=== PATIENT | male | born 1950 | race Caucasian/White ===

== ENCOUNTER 2016-09-05 10:37 | Outpatient (CLI) | payer MEDICARE, OTHER | END 2016-09-05 10:38 | disposition home or self-care (01) | DX: I48.0 Paroxysmal atrial fibrillation (principal) ==

== ENCOUNTER 2016-09-20 09:19 | Outpatient (CLI) | payer MEDICARE, OTHER | END 2016-09-20 09:20 | disposition home or self-care (01) | DX: I48.0 Paroxysmal atrial fibrillation (principal) ==

== ENCOUNTER 2016-09-23 10:28 | Outpatient (CLI) | payer MEDICARE, OTHER | END 2016-09-23 10:29 | disposition home or self-care (01) | DX: I48.0 Paroxysmal atrial fibrillation (principal) ==

== ENCOUNTER 2016-10-31 11:20 | Outpatient (CLI) | payer MEDICARE, OTHER | END 2016-10-31 11:21 | disposition home or self-care (01) | DX: I48.0 Paroxysmal atrial fibrillation (principal) ==

== ENCOUNTER 2016-12-27 15:01 | Outpatient (CLI) | payer MEDICARE, OTHER | END 2016-12-27 15:02 | disposition home or self-care (01) | LOC: LAB.F 15:01 | PROVIDERS: ATTEND Family Medicine | DX: I48.0 Paroxysmal atrial fibrillation (principal) | CPT/HCPCS: 85610 ==

== ENCOUNTER 2017-02-20 14:42 | Outpatient (CLI) | payer MEDICARE, OTHER | END 2017-02-20 14:43 | disposition home or self-care (01) | LOC: LAB.F 14:42 | PROVIDERS: ATTEND Family Medicine | DX: I48.0 Paroxysmal atrial fibrillation (principal) | CPT/HCPCS: 85610 ==

== ENCOUNTER 2017-03-03 07:42 | Outpatient (CLI) | payer MEDICARE, OTHER | END 2017-03-03 07:43 | disposition home or self-care (01) | LOC: LAB.F 07:42 | PROVIDERS: ATTEND Family Medicine | DX: I48.0 Paroxysmal atrial fibrillation (principal) | CPT/HCPCS: 85610 ==

== ENCOUNTER 2017-03-16 13:01 | Outpatient (CLI) | payer MEDICARE, OTHER | END 2017-03-16 13:02 | disposition home or self-care (01) | LOC: LAB.F 13:01 | PROVIDERS: ATTEND Family Medicine | DX: I48.0 Paroxysmal atrial fibrillation (principal) | CPT/HCPCS: 85610 ==

== ENCOUNTER 2017-03-23 09:24 | Outpatient (CLI) | payer MEDICARE, OTHER | END 2017-03-23 09:25 | disposition home or self-care (01) | LOC: LAB.F 09:24 | PROVIDERS: ATTEND Family Medicine | DX: I48.0 Paroxysmal atrial fibrillation (principal) | CPT/HCPCS: 85610 ==

== ENCOUNTER 2017-04-05 14:01 | Outpatient (CLI) | payer MEDICARE, OTHER | END 2017-04-05 14:02 | disposition home or self-care (01) | LOC: LAB.F 14:01 | PROVIDERS: ATTEND Family Medicine | DX: I48.0 Paroxysmal atrial fibrillation (principal) | CPT/HCPCS: 85610 ==

== ENCOUNTER 2017-05-08 13:30 | Outpatient (CLI) | payer MEDICARE, OTHER | END 2017-05-08 13:31 | disposition home or self-care (01) | LOC: LAB.F 13:30 | PROVIDERS: ATTEND Family Medicine | DX: I48.0 Paroxysmal atrial fibrillation (principal) | CPT/HCPCS: 85610 ==

== ENCOUNTER 2017-07-11 12:35 | Outpatient (CLI) | payer MEDICARE, OTHER | END 2017-07-11 12:36 | disposition home or self-care (01) | LOC: LAB.F 12:35 | PROVIDERS: ATTEND Family Medicine | DX: I48.0 Paroxysmal atrial fibrillation (principal) | CPT/HCPCS: 85610 ==

== ENCOUNTER 2017-08-10 12:08 | Outpatient (CLI) | payer MEDICARE, OTHER | END 2017-08-10 12:09 | disposition home or self-care (01) | LOC: RT 12:08 | PROVIDERS: ATTEND Internal Medicine Cardiovascular Disease | DX: G47.33 Obstructive sleep apnea (adult) (pediatric) (principal); I10 Essential (primary) hypertension | CPT/HCPCS: 93005 ==

== ENCOUNTER 2017-08-11 10:21 | Outpatient (CLI) | payer MEDICARE, OTHER | END 2017-08-11 10:22 | disposition home or self-care (01) | LOC: LAB.F 10:21 | PROVIDERS: ATTEND Family Medicine | DX: I48.0 Paroxysmal atrial fibrillation (principal) | CPT/HCPCS: 85610 ==

== ENCOUNTER 2017-09-13 10:51 | Outpatient (CLI) | payer MEDICARE, OTHER | END 2017-09-13 10:52 | disposition home or self-care (01) | LOC: LAB.F 10:51 | PROVIDERS: ATTEND Family Medicine | DX: I48.0 Paroxysmal atrial fibrillation (principal) | CPT/HCPCS: 85610 ==

== ENCOUNTER 2017-09-29 14:30 | Outpatient (CLI) | payer MEDICARE, OTHER | END 2017-09-29 14:31 | disposition home or self-care (01) | LOC: LAB.F 14:30 | PROVIDERS: ATTEND Family Medicine | DX: I48.0 Paroxysmal atrial fibrillation (principal) | CPT/HCPCS: 85610 ==

== ENCOUNTER 2017-10-30 14:06 | Outpatient (CLI) | payer MEDICARE, OTHER | END 2017-10-30 14:07 | disposition home or self-care (01) | LOC: LAB.F 14:06 | PROVIDERS: ATTEND Family Medicine | DX: I48.0 Paroxysmal atrial fibrillation (principal) | CPT/HCPCS: 85610 ==

== ENCOUNTER 2017-11-08 10:12 | Outpatient (CLI) | payer MEDICARE, OTHER | END 2017-11-08 10:13 | disposition home or self-care (01) | LOC: LAB.F 10:12 | PROVIDERS: ATTEND Family Medicine | DX: I48.0 Paroxysmal atrial fibrillation (principal) | CPT/HCPCS: 85610 ==

== ENCOUNTER 2017-12-07 13:43 | Outpatient (CLI) | payer MEDICARE, OTHER | END 2017-12-07 13:44 | disposition home or self-care (01) | LOC: LAB.F 13:43 | PROVIDERS: ATTEND Family Medicine | DX: I48.0 Paroxysmal atrial fibrillation (principal) | CPT/HCPCS: 85610 ==

== ENCOUNTER 2017-12-18 09:05 | Outpatient (CLI) | payer MEDICARE, OTHER | END 2017-12-18 09:06 | disposition home or self-care (01) | LOC: LAB.F 09:05 | PROVIDERS: ATTEND Family Medicine | DX: I48.0 Paroxysmal atrial fibrillation (principal) | CPT/HCPCS: 85610 ==

== ENCOUNTER 2018-01-12 13:34 | Outpatient (CLI) | payer MEDICARE, OTHER | END 2018-01-12 13:35 | disposition home or self-care (01) | LOC: LAB.F 13:34 | PROVIDERS: ATTEND Family Medicine | DX: I48.0 Paroxysmal atrial fibrillation (principal) | CPT/HCPCS: 85610 ==

== ENCOUNTER 2018-01-18 07:09 | Outpatient (CLI) | payer MEDICARE, OTHER ==
[2018-01-18 11:18] LABS: CHOL/HDL RATIO 4.4 (<5.0); CHOLESTEROL 115 mg/dL; HDL CHOLESTEROL 26 mg/dL; LDL CHOLESTEROL,CALCULATED 64 mg/dL; LDL/HDL RATIO 2.5 (<3.6); VLDL CHOLESTEROL 25 mg/dL
[2018-01-18 11:21] LABS: PSA FREE 0.08 ng/mL (0.16-2.81)
[2018-01-18 11:22] LABS: PSA TOTAL 0.57 ng/mL (0.000-2.000)
[2018-01-18 11:31] LABS: HB2 TOTAL 11.1 g/dL; HEMOGLOBIN A1C 0.42 g/dL; HEMOGLOBIN A1C % 5.6 % (4.6-6.2)
== END 2018-01-18 07:10 | disposition home or self-care (01) ==
LOC: LAB.F 07:09
PROVIDERS: ATTEND Nurse Practitioner Family
DX: I48.0 Paroxysmal atrial fibrillation (principal); R73.01 Impaired fasting glucose; E78.5 Hyperlipidemia, unspecified; I10 Essential (primary) hypertension; R97.20 Elevated prostate specific antigen [PSA]
CPT/HCPCS: 36415; 80061; 83036; 83721; 84153; 84154; 84443

== ENCOUNTER 2018-01-26 15:02 | Outpatient (CLI) | payer MEDICARE, OTHER | END 2018-01-26 15:03 | disposition home or self-care (01) | LOC: LAB.F 15:02 | PROVIDERS: ATTEND Family Medicine | DX: I48.0 Paroxysmal atrial fibrillation (principal) | CPT/HCPCS: 85610 ==

== ENCOUNTER 2018-02-23 15:03 | Outpatient (CLI) | payer MEDICARE, OTHER | END 2018-02-23 15:04 | disposition home or self-care (01) | LOC: LAB.F 15:03 | PROVIDERS: ATTEND Family Medicine | DX: I48.0 Paroxysmal atrial fibrillation (principal) | CPT/HCPCS: 85610 ==

== ENCOUNTER 2018-03-07 14:31 | Outpatient (CLI) | payer MEDICARE, OTHER | END 2018-03-07 14:32 | disposition home or self-care (01) | LOC: LAB.F 14:31 | PROVIDERS: ATTEND Family Medicine | DX: I48.0 Paroxysmal atrial fibrillation (principal) | CPT/HCPCS: 85610 ==

== ENCOUNTER 2018-03-20 14:52 | Outpatient (CLI) | payer MEDICARE, OTHER | END 2018-03-20 14:53 | disposition home or self-care (01) | LOC: LAB.F 14:52 | PROVIDERS: ATTEND Family Medicine | DX: I48.0 Paroxysmal atrial fibrillation (principal) | CPT/HCPCS: 85610 ==

== ENCOUNTER 2018-04-26 08:47 | Outpatient (CLI) | payer MEDICARE, OTHER ==
[2018-04-26 10:36] LABS: BUN - BLOOD UREA NITROGEN 17 mg/dL (6-20); CALCIUM 8.7 mg/dL (8.5-10.3); CARBON DIOXIDE - CO2 26 mmol/L (21-32); CHLORIDE 106 mmol/L (101-111); CHOL/HDL RATIO 5.3 (<5.0); CHOLESTEROL 123 mg/dL; CREATININE 0.7 mg/dL (0.6-1.2); GFR - MDRD 112 (>89); GLUCOSE 94 mg/dL (70-100); HDL CHOLESTEROL 23 mg/dL; LDL CHOLESTEROL,CALCULATED 74 mg/dL; LDL/HDL RATIO 3.2 (<3.6); SODIUM 140 mmol/L (135-145); VLDL CHOLESTEROL 26 mg/dL
[2018-04-26 11:59] LABS: HEMOGLOBIN A1C 0.41 g/dL; HEMOGLOBIN A1C % 5.6 % (4.6-6.2)
== END 2018-04-26 08:48 | disposition home or self-care (01) ==
LOC: LAB.F 08:47
PROVIDERS: ATTEND Internal Medicine
DX: I48.0 Paroxysmal atrial fibrillation (principal); R73.01 Impaired fasting glucose; E78.5 Hyperlipidemia, unspecified
CPT/HCPCS: 36415; 80048; 80061; 83036; 83721; 85610

== ENCOUNTER → 2018-06-19 | Outpatient (CLI) | payer MEDICARE, OTHER ==
[2018-06-19 17:48] LABS: INR 2.1 (0.8-1.2)
== END ==
LOC: LAB.F 14:30
PROVIDERS: ATTEND Internal Medicine
DX: I48.0 Paroxysmal atrial fibrillation (principal)
CPT/HCPCS: 85610

== ENCOUNTER 2018-07-25 10:49 | Outpatient (CLI) | payer MEDICARE, OTHER | END 2018-07-25 10:50 | disposition home or self-care (01) | LOC: LAB.F 10:49 | PROVIDERS: ATTEND Internal Medicine | DX: I48.0 Paroxysmal atrial fibrillation (principal) | CPT/HCPCS: 85610 ==

== ENCOUNTER 2018-09-28 09:55 | Outpatient (CLI) | payer MEDICARE, OTHER | END 2018-09-28 09:56 | disposition home or self-care (01) | LOC: LAB.F 09:55 | PROVIDERS: ATTEND Internal Medicine | DX: I48.0 Paroxysmal atrial fibrillation (principal) | CPT/HCPCS: 85610 ==

== ENCOUNTER 2018-10-31 13:52 | Outpatient (CLI) | payer MEDICARE, OTHER | END 2018-10-31 13:53 | disposition home or self-care (01) | LOC: LAB.F 13:52 | PROVIDERS: ATTEND Internal Medicine | DX: I48.0 Paroxysmal atrial fibrillation (principal) | CPT/HCPCS: 85610 ==

== ENCOUNTER 2018-11-02 07:34 | Outpatient (CLI) | payer MEDICARE, OTHER ==
[2018-11-02 10:54] LABS: ALBUMIN 3.6 g/dL (3.2-5.5); ALBUMIN/GLOBULIN RATIO 1.5 (1.0-2.2); ALKALINE PHOSPHATASE 65 IU/L (42-121); ALT ALANINE AMINOTRANSFERASE 20 IU/L (10-60); AST ASPARTATE AMINOTRANSFERASE 22 IU/L (10-42); BILIRUBIN,TOTAL 0.6 mg/dL (0.2-1.0); BUN - BLOOD UREA NITROGEN 18 mg/dL (6-20); CALCIUM 8.6 mg/dL (8.5-10.3); CARBON DIOXIDE - CO2 25 mmol/L (21-32); CHLORIDE 108 mmol/L (101-111); CHOL/HDL RATIO 5.2 (<5.0); CHOLESTEROL 131 mg/dL; CREATININE 0.8 mg/dL (0.6-1.2); GFR - MDRD 96 (>89); GLUCOSE 95 mg/dL (70-100); HDL CHOLESTEROL 25 mg/dL; LDL CHOLESTEROL,CALCULATED 85 mg/dL; LDL/HDL RATIO 3.4 (<3.6); SODIUM 139 mmol/L (135-145); VLDL CHOLESTEROL 21 mg/dL
== END 2018-11-02 07:35 | disposition home or self-care (01) ==
LOC: LAB.F 07:34
PROVIDERS: ATTEND Internal Medicine Cardiovascular Disease
DX: I48.2 Chronic atrial fibrillation (principal); R73.01 Impaired fasting glucose; E78.5 Hyperlipidemia, unspecified; Z12.5 Encounter for screening for malignant neoplasm of prostate; I77.810 Thoracic aortic ectasia
CPT/HCPCS: 36415; 80053; 80061; G0103; 82565; 83721; 84153

== ENCOUNTER 2018-11-08 14:06 | Outpatient (CLI) | payer MEDICARE, OTHER | END 2018-11-08 14:07 | disposition home or self-care (01) | LOC: LAB.F 14:06 | PROVIDERS: ATTEND Internal Medicine | DX: I48.0 Paroxysmal atrial fibrillation (principal) | CPT/HCPCS: 85610 ==

== ENCOUNTER 2018-11-16 07:29 | Outpatient (CLI) | payer MEDICARE, OTHER | END 2018-11-16 07:30 | disposition home or self-care (01) | LOC: LAB.F 07:29 | PROVIDERS: ATTEND Internal Medicine | DX: I48.0 Paroxysmal atrial fibrillation (principal) | CPT/HCPCS: 85610 ==

== ENCOUNTER 2018-11-23 09:23 | Outpatient (CLI) | payer MEDICARE, OTHER | END 2018-11-23 09:24 | disposition home or self-care (01) | LOC: LAB.F 09:23 | PROVIDERS: ATTEND Internal Medicine | DX: I48.0 Paroxysmal atrial fibrillation (principal) | CPT/HCPCS: 85610 ==

== ENCOUNTER 2018-11-30 14:10 | Outpatient (CLI) | payer MEDICARE, OTHER | END 2018-11-30 14:11 | disposition home or self-care (01) | LOC: LAB.F 14:10 | PROVIDERS: ATTEND Internal Medicine | DX: I48.0 Paroxysmal atrial fibrillation (principal) | CPT/HCPCS: 85610 ==

== ENCOUNTER 2019-01-14 12:12 | Outpatient (CLI) | payer MEDICARE, OTHER | END 2019-01-14 12:13 | disposition home or self-care (01) | LOC: LAB.F 12:12 | PROVIDERS: ATTEND Internal Medicine | DX: I48.0 Paroxysmal atrial fibrillation (principal) | CPT/HCPCS: 85610 ==

== ENCOUNTER 2019-01-21 11:39 | Outpatient (CLI) | payer MEDICARE, OTHER | END 2019-01-21 11:40 | disposition home or self-care (01) | LOC: LAB.F 11:39 | PROVIDERS: ATTEND Internal Medicine | DX: I48.0 Paroxysmal atrial fibrillation (principal) | CPT/HCPCS: 85610 ==

== ENCOUNTER 2019-01-28 13:31 | Outpatient (CLI) | payer MEDICARE, OTHER | END 2019-01-28 13:32 | disposition home or self-care (01) | LOC: LAB.F 13:31 | PROVIDERS: ATTEND Internal Medicine | DX: I48.0 Paroxysmal atrial fibrillation (principal) | CPT/HCPCS: 85610 ==

== ENCOUNTER 2019-03-07 14:06 | Outpatient (CLI) | payer MEDICARE, OTHER | END 2019-03-07 14:07 | disposition home or self-care (01) | LOC: LAB.S 14:06 | PROVIDERS: ATTEND Internal Medicine | DX: I48.0 Paroxysmal atrial fibrillation (principal) | CPT/HCPCS: 85610 ==

== ENCOUNTER 2019-04-23 08:00 | Outpatient (CLI) | payer MEDICARE, OTHER | END 2019-04-23 23:59 | disposition home or self-care (01) | LOC: LAB.S 08:00 | PROVIDERS: ATTEND Internal Medicine | DX: I48.0 Paroxysmal atrial fibrillation (principal) | CPT/HCPCS: 85610 ==

== ENCOUNTER 2019-06-05 10:34 | Outpatient (CLI) | payer MEDICARE, OTHER | END 2019-06-05 10:35 | disposition home or self-care (01) | LOC: LAB.S 10:34 | PROVIDERS: ATTEND Internal Medicine | DX: I48.0 Paroxysmal atrial fibrillation (principal) | CPT/HCPCS: 85610 ==

== ENCOUNTER 2019-07-16 07:51 | Outpatient (CLI) | payer MEDICARE, OTHER | END 2019-07-16 23:59 | disposition home or self-care (01) | LOC: LAB.S 07:51 | PROVIDERS: ATTEND Internal Medicine | DX: E78.5 Hyperlipidemia, unspecified (principal); R73.01 Impaired fasting glucose; D75.1 Secondary polycythemia; I48.0 Paroxysmal atrial fibrillation | CPT/HCPCS: 36415; 80053; 80061; 83036; 83721; 85025; 85610 ==

== ENCOUNTER 2019-08-29 10:54 | Outpatient (CLI) | payer MEDICARE, OTHER | END 2019-08-29 10:55 | disposition home or self-care (01) | LOC: LAB.S 10:54 | PROVIDERS: ATTEND Internal Medicine | DX: I48.0 Paroxysmal atrial fibrillation (principal) | CPT/HCPCS: 85610 ==

== ENCOUNTER 2019-09-17 07:44 | Outpatient (CLI) | payer MEDICARE, OTHER ==
[2019-09-17 10:35] LABS: CHOL/HDL RATIO 5.7 (<5.0); CHOLESTEROL 136 mg/dL; HDL CHOLESTEROL 24 mg/dL; LDL CHOLESTEROL,CALCULATED 84 mg/dL; LDL/HDL RATIO 3.5 (<3.6); VLDL CHOLESTEROL 28 mg/dL
[2019-09-17 10:42] LABS: HB2 TOTAL 9.8 g/dL; HEMOGLOBIN A1C 0.33 g/dL; HEMOGLOBIN A1C % 5.2 % (4.6-6.2)
== END 2019-09-17 07:45 | disposition home or self-care (01) ==
LOC: LAB.S 07:44
PROVIDERS: ATTEND Internal Medicine
DX: E78.5 Hyperlipidemia, unspecified (principal); R73.01 Impaired fasting glucose
CPT/HCPCS: 36415; 80061; 83036; 83721

== ENCOUNTER 2019-10-04 15:05 | Outpatient (CLI) | payer MEDICARE, OTHER | END 2019-10-04 15:06 | disposition home or self-care (01) | LOC: LAB.S 15:05 | PROVIDERS: ATTEND Internal Medicine | DX: I48.0 Paroxysmal atrial fibrillation (principal) | CPT/HCPCS: 85610 ==

== ENCOUNTER 2019-11-20 14:36 | Outpatient (CLI) | payer MEDICARE, OTHER | END 2019-11-20 14:37 | disposition home or self-care (01) | LOC: LAB 14:36 | PROVIDERS: ATTEND Internal Medicine | DX: I48.0 Paroxysmal atrial fibrillation (principal) | CPT/HCPCS: 85610 ==

== ENCOUNTER 2019-12-24 12:37 | Outpatient (CLI) | payer MEDICARE, OTHER | END 2019-12-24 12:38 | disposition home or self-care (01) | LOC: LAB 12:37 | PROVIDERS: ATTEND Internal Medicine | DX: I48.0 Paroxysmal atrial fibrillation (principal) | CPT/HCPCS: 85610 ==

== ENCOUNTER 2020-01-23 10:58 | Outpatient (CLI) | payer MEDICARE, OTHER | END 2020-01-23 10:59 | disposition home or self-care (01) | LOC: LAB.S 10:58 | PROVIDERS: ATTEND Internal Medicine | DX: I48.0 Paroxysmal atrial fibrillation (principal) | CPT/HCPCS: 85610 ==

== ENCOUNTER 2020-02-25 11:21 | Outpatient (CLI) | payer MEDICARE, OTHER | END 2020-02-25 11:22 | disposition home or self-care (01) | LOC: LAB.S 11:21 | PROVIDERS: ATTEND Internal Medicine | DX: I48.0 Paroxysmal atrial fibrillation (principal) | CPT/HCPCS: 85610 ==

== ENCOUNTER 2020-04-14 08:00 | Outpatient (CLI) | payer MEDICARE, OTHER ==
[2020-04-14 15:19] LABS: ALBUMIN/GLOBULIN RATIO 1.9 (1.0-2.2); ALKALINE PHOSPHATASE 65 IU/L (42-121); ALT ALANINE AMINOTRANSFERASE 21 IU/L (10-60); AST ASPARTATE AMINOTRANSFERASE 19 IU/L (10-42); BILIRUBIN,TOTAL 0.6 mg/dL (0.2-1.0); BUN - BLOOD UREA NITROGEN 22 mg/dL (6-20); CALCIUM 8.9 mg/dL (8.5-10.3); CARBON DIOXIDE - CO2 25 mmol/L (21-32); CHLORIDE 108 mmol/L (101-111); CHOL/HDL RATIO 5.2 (<5.0); CHOLESTEROL 140 mg/dL; CREATININE 0.7 mg/dL (0.6-1.2); GLUCOSE 95 mg/dL (70-100); HDL CHOLESTEROL 27 mg/dL; LDL CHOLESTEROL,CALCULATED 90 mg/dL; LDL/HDL RATIO 3.3 (<3.6); SODIUM 139 mmol/L (135-145); TOTAL PROTEIN 6.1 g/dL (6.7-8.2); VLDL CHOLESTEROL 23 mg/dL
[2020-04-14 21:37] LABS: HEMOGLOBIN A1c% 5.6 % (4.27-6.07)
== END 2020-04-14 23:59 | disposition home or self-care (01) ==
LOC: LAB.S 08:00
PROVIDERS: ATTEND Internal Medicine
DX: E78.5 Hyperlipidemia, unspecified (principal); R73.01 Impaired fasting glucose; Z12.5 Encounter for screening for malignant neoplasm of prostate; I48.0 Paroxysmal atrial fibrillation
CPT/HCPCS: 36415; 80053; 80061; 83036; 83721; 84153; 85027; 85610

== ENCOUNTER 2020-05-12 10:16 | Outpatient (CLI) | payer MEDICARE, OTHER | END 2020-05-12 10:17 | disposition home or self-care (01) | LOC: LAB.S 10:16 | PROVIDERS: ATTEND Internal Medicine | DX: I48.0 Paroxysmal atrial fibrillation (principal) | CPT/HCPCS: 85610 ==

== ENCOUNTER 2020-06-04 14:20 | Outpatient (CLI) | payer MEDICARE, OTHER | END 2020-06-04 14:21 | disposition home or self-care (01) | LOC: LAB.S 14:20 | PROVIDERS: ATTEND Internal Medicine | DX: I48.20 Chronic atrial fibrillation, unspecified (principal) | CPT/HCPCS: 85610 ==

== ENCOUNTER 2020-06-18 10:53 | Outpatient (CLI) | payer MEDICARE, OTHER | END 2020-06-18 10:54 | disposition home or self-care (01) | LOC: LAB.S 10:53 | PROVIDERS: ATTEND Internal Medicine | DX: I48.20 Chronic atrial fibrillation, unspecified (principal) | CPT/HCPCS: 85610 ==

== ENCOUNTER 2020-07-14 08:02 | Outpatient (CLI) | payer MEDICARE, OTHER | END 2020-07-14 08:03 | disposition home or self-care (01) | LOC: LAB.S 08:02 | PROVIDERS: ATTEND Internal Medicine | DX: I10 Essential (primary) hypertension (principal); I48.20 Chronic atrial fibrillation, unspecified; Z79.01 Long term (current) use of anticoagulants | CPT/HCPCS: 36415; 85610 ==

== ENCOUNTER 2020-08-13 10:03 | Outpatient (CLI) | payer MEDICARE, OTHER | END 2020-08-13 10:04 | disposition home or self-care (01) | LOC: LAB.S 10:03 | PROVIDERS: ATTEND Internal Medicine | DX: I48.20 Chronic atrial fibrillation, unspecified (principal) | CPT/HCPCS: 85610 ==

== ENCOUNTER 2020-09-10 08:00 | Outpatient (CLI) | payer MEDICARE, OTHER | END 2020-09-10 23:59 | disposition home or self-care (01) | LOC: LAB.F 08:00 | PROVIDERS: ATTEND Internal Medicine | DX: Z79.01 Long term (current) use of anticoagulants (principal) ==

== ENCOUNTER 2020-09-17 08:00 | Outpatient (CLI) | payer MEDICARE, OTHER | END 2020-09-17 23:59 | disposition home or self-care (01) | LOC: LAB.F 08:00 | PROVIDERS: ATTEND Internal Medicine | DX: Z79.01 Long term (current) use of anticoagulants (principal) ==

== ENCOUNTER 2020-10-08 14:21 | Outpatient (CLI) | payer MEDICARE, OTHER | END 2020-10-08 14:22 | disposition home or self-care (01) | LOC: LAB.S 14:21 | PROVIDERS: ATTEND Internal Medicine | DX: I48.20 Chronic atrial fibrillation, unspecified (principal) | CPT/HCPCS: 85610 ==

== ENCOUNTER 2020-10-15 13:32 | Outpatient (CLI) | payer MEDICARE, OTHER | END 2020-10-15 13:33 | disposition home or self-care (01) | LOC: LAB.S 13:32 | PROVIDERS: ATTEND Internal Medicine | DX: I48.20 Chronic atrial fibrillation, unspecified (principal) | CPT/HCPCS: 85610 ==

== ENCOUNTER 2020-10-29 11:56 | Outpatient (CLI) | payer MEDICARE, OTHER | END 2020-10-29 11:57 | disposition home or self-care (01) | LOC: LAB.S 11:56 | PROVIDERS: ATTEND Internal Medicine | DX: I48.20 Chronic atrial fibrillation, unspecified (principal) | CPT/HCPCS: 85610 ==

== ENCOUNTER 2020-11-26 15:05 | Outpatient (CLI) | payer MEDICARE, OTHER | END 2020-11-26 15:06 | disposition home or self-care (01) | LOC: LAB.S 15:05 | PROVIDERS: ATTEND Internal Medicine | DX: I48.20 Chronic atrial fibrillation, unspecified (principal) | CPT/HCPCS: 85610 ==

== ENCOUNTER 2020-12-24 11:19 | Outpatient (CLI) | payer MEDICARE, OTHER | END 2020-12-24 11:20 | disposition home or self-care (01) | LOC: LAB.S 11:19 | PROVIDERS: ATTEND Internal Medicine | DX: I48.20 Chronic atrial fibrillation, unspecified (principal) | CPT/HCPCS: 36416; 85610 ==

== ENCOUNTER 2020-12-31 08:12 | Outpatient (CLI) | payer MEDICARE, OTHER | END 2020-12-31 08:13 | disposition home or self-care (01) | LOC: LAB.S 08:12 | PROVIDERS: ATTEND Internal Medicine | DX: I48.20 Chronic atrial fibrillation, unspecified (principal) | CPT/HCPCS: 36416; 85610 ==

== ENCOUNTER 2021-01-07 12:33 | Outpatient (CLI) | payer MEDICARE, OTHER | END 2021-01-07 12:34 | disposition home or self-care (01) | LOC: LAB.S 12:33 | PROVIDERS: ATTEND Internal Medicine | DX: I48.20 Chronic atrial fibrillation, unspecified (principal) | CPT/HCPCS: 36416; 85610 ==

== ENCOUNTER 2021-01-21 11:10 | Outpatient (CLI) | payer MEDICARE, OTHER | END 2021-01-21 11:11 | disposition home or self-care (01) | LOC: LAB.S 11:10 | PROVIDERS: ATTEND Internal Medicine | DX: I48.20 Chronic atrial fibrillation, unspecified (principal) | CPT/HCPCS: 36416; 85610 ==

== ENCOUNTER 2021-02-04 13:14 | Outpatient (CLI) | payer MEDICARE, OTHER | END 2021-02-04 13:15 | disposition home or self-care (01) | LOC: LAB.S 13:14 | PROVIDERS: ATTEND Internal Medicine | DX: I48.20 Chronic atrial fibrillation, unspecified (principal) | CPT/HCPCS: 36416; 85610 ==

== ENCOUNTER 2021-02-11 16:03 | Outpatient (CLI) | payer MEDICARE, OTHER ==
--- NOTE | 2021-02-12 08:26 | Ultrasound Report ---
PROCEDURE: Abdomen Limited INDICATIONS: POLYCYTHEMIA VERA, THROMBOCYTHEMIA TECHNIQUE: Real-time focused scanning was performed of the abdomen, with image documentation. COMPARISON: None. FINDINGS: There is marked splenomegaly. The spleen measures approximately 25 cm in greatest dimensio n. There is a moderate large accessory spleen/splenule measuring up to 4 cm IMPRESSION: Marked splenomegaly with a moderate to large splenule. Reviewed by: Shon Zacarias MD on 02/12/2021 8:25 AM PDT Approved by: Shon Zacarias MD on 02/12/2021 8:25 AM PDT Station ID: [id number]
== END 2021-02-11 16:04 | disposition home or self-care (01) ==
LOC: DI 16:03
PROVIDERS: ATTEND Internal Medicine
DX: R16.1 Splenomegaly, not elsewhere classified (principal); D45 Polycythemia vera; D47.3 Essential (hemorrhagic) thrombocythemia; Z79.01 Long term (current) use of anticoagulants

== ENCOUNTER 2021-02-25 11:03 | Outpatient (CLI) | payer MEDICARE, OTHER | END 2021-02-25 11:04 | disposition home or self-care (01) | LOC: LAB.S 11:03 | PROVIDERS: ATTEND Internal Medicine | DX: I48.20 Chronic atrial fibrillation, unspecified (principal) | CPT/HCPCS: 36416; 85610 ==

== ENCOUNTER 2021-03-25 11:33 | Outpatient (CLI) | payer MEDICARE, OTHER | END 2021-03-25 11:34 | disposition home or self-care (01) | LOC: LAB.S 11:33 | PROVIDERS: ATTEND Internal Medicine | DX: I48.20 Chronic atrial fibrillation, unspecified (principal) | CPT/HCPCS: 36416; 85610 ==

== ENCOUNTER 2021-04-22 11:18 | Outpatient (CLI) | payer MEDICARE, OTHER | END 2021-04-22 11:19 | disposition home or self-care (01) | LOC: LAB.S 11:18 | PROVIDERS: ATTEND Internal Medicine | DX: I48.20 Chronic atrial fibrillation, unspecified (principal) | CPT/HCPCS: 36416; 85610 ==

== ENCOUNTER 2021-05-20 12:14 | Outpatient (CLI) | payer MEDICARE, OTHER | END 2021-05-20 12:15 | disposition home or self-care (01) | LOC: LAB.S 12:14 | PROVIDERS: ATTEND Internal Medicine | DX: I48.20 Chronic atrial fibrillation, unspecified (principal) | CPT/HCPCS: 36416; 85610 ==

== ENCOUNTER 2021-06-09 09:17 | Outpatient (CLI) | payer MEDICARE, OTHER ==
[2021-06-09 16:06] LABS: CHOL/HDL RATIO 5.6 (<5.0); CHOLESTEROL 145 mg/dL; HDL CHOLESTEROL 26 mg/dL; LDL CHOLESTEROL,CALCULATED 91 mg/dL; LDL/HDL RATIO 3.5 (<3.6); TRIGLYCERIDES 141 mg/dL; VLDL CHOLESTEROL 28 mg/dL
== END 2021-06-09 09:18 | disposition home or self-care (01) ==
LOC: LAB.S 09:17
PROVIDERS: ATTEND Internal Medicine
DX: E78.5 Hyperlipidemia, unspecified (principal); Z12.5 Encounter for screening for malignant neoplasm of prostate
CPT/HCPCS: 36415; 80061; G0103; 83721; 84153

== ENCOUNTER 2021-06-24 10:01 | Outpatient (CLI) | payer MEDICARE, OTHER ==
[2021-06-24] MEDS ORDERED: BUFFERED LIDOCAINE 10 ML SYRINGE ONE (10:15)
[2021-06-24] MEDS ORDERED: LACTATED RINGERS 1,000 ML IV ONE ×2 (10:32→11:58)
[2021-06-24 10:52] LABS: INR 1.2 (0.8-1.2); PT - PROTHROMBIN TIME 13.7 secs (9.9-12.6)
[2021-06-24] MEDS ORDERED: fentaNYL 100 MCG/2 ML VIAL ONE (11:09)
[2021-06-24] MEDS ORDERED: MIDAZOLAM 2 MG/2 ML VIAL ONE (11:10)
[2021-06-24 13:31] VITALS: BP 112/61
--- NOTE | 2021-06-24 14:40 | CT Report ---
PROCEDURE: BONE MARROW BX W/ASPIRATION Sedation analgesia for 20 minutes. INDICATIONS: THROMBOCYTHOMIA TECHNIQUE: The indications, alternatives, benefits, risks, and possible complications of the procedure were comm unicated to the patient. Informed written consent from the patient was obtained and placed in the art. Continuous EKG and hemodynamic monitoring was started by trained personnel. For radiation dose reduction, the following was used: automated exposure control, adjustment of mA and/or kV according to patient size. The patient was brought to the CT suite and beater boss spiral CT imaging was performed with localization g rid. The appropriate site for percutaneous access to the biopsy target was marked, was prepped and d raped sterilely, and was infused with local anaesthesia. Under CT guidance, a core biopsy trocar and needle set was advanced to the biopsy target, and specimen(s) were obtained. The trocar and needle were then removed, and the patient was sent for post-procedure monitoring. COMPARISON: None. FINDINGS: Biopsy site: Left iliac bone Needle: 13-gauge biopsy needle with introducer trocar. Number of passes: 1 Medications: 1% lidocaine for local anaesthesia. IV Fentanyl (50 mcg) and Versed (1 mg) for conscio us sedation for 20 minutes (see nursing record). Complications: None. IMPRESSION: Successful CT-guided biopsy of left iliac bone marrow with aspirate. Reviewed by: Mariajose Bowles MD, PhD on 06/24/2021 2:39 PM PST Approved by: Mariajose Bowles MD, PhD on 06/24/2021 2:39 PM PST Station ID: [id number]
== END 2021-06-24 10:02 | disposition home or self-care (01) ==
LOC: DI 10:01
PROVIDERS: ATTEND Internal Medicine
DX: D75.1 Secondary polycythemia (principal); D47.3 Essential (hemorrhagic) thrombocythemia; Z86.711 Personal history of pulmonary embolism; Z79.01 Long term (current) use of anticoagulants; I48.91 Unspecified atrial fibrillation
CPT/HCPCS: 36415; 38222; 77012; 85610; 85730; J7120

== ENCOUNTER 2021-06-28 11:14 | Outpatient (CLI) | payer MEDICARE, OTHER | END 2021-06-28 11:15 | disposition home or self-care (01) | LOC: LAB.S 11:14 | PROVIDERS: ATTEND Internal Medicine | DX: I48.20 Chronic atrial fibrillation, unspecified (principal) | CPT/HCPCS: 85610 ==

== ENCOUNTER 2021-06-30 13:05 | Outpatient (CLI) | payer MEDICARE, OTHER | END 2021-06-30 13:06 | disposition home or self-care (01) | LOC: LAB.S 13:05 | PROVIDERS: ATTEND Internal Medicine | DX: I48.20 Chronic atrial fibrillation, unspecified (principal) | CPT/HCPCS: 36416; 85610 ==

== ENCOUNTER 2021-07-02 09:49 | Outpatient (CLI) | payer MEDICARE, OTHER | END 2021-07-02 09:50 | disposition home or self-care (01) | LOC: LAB.S 09:49 | PROVIDERS: ATTEND Internal Medicine | DX: I48.20 Chronic atrial fibrillation, unspecified (principal) | CPT/HCPCS: 36416; 85610 ==

== ENCOUNTER 2021-07-15 08:15 | Outpatient (CLI) | payer MEDICARE, OTHER ==
[2021-07-15 15:03] LABS: HCT - HEMATOCRIT 28.4 % (42.0-52.0); HGB - HEMOGLOBIN 8.7 g/dL (14.0-18.0); MEAN CORPUSCULAR HEMOGLOBIN 34.8 pg (27.0-31.0); MEAN CORPUSCULAR HGB CONC 30.6 g/dL (32.0-36.0); MEAN CORPUSCULAR VOLUME 113.6 fL (80.0-94.0); MEAN PLATELET VOLUME 10.6 fL (7.4-11.4); RED BLOOD COUNT 2.5 10^6/uL (4.70-6.10); RED CELL DISTRIBUTION WIDTH 18.6 % (12.0-15.0); WHITE BLOOD COUNT 6.8 x10^3/uL (4.8-10.8)
== END 2021-07-15 08:16 | disposition home or self-care (01) ==
LOC: LAB.S 08:15
PROVIDERS: ATTEND Internal Medicine
DX: I48.20 Chronic atrial fibrillation, unspecified (principal); D75.1 Secondary polycythemia
CPT/HCPCS: 36415; 36416; 85027; 85610

== ENCOUNTER 2021-07-24 09:07 | Outpatient (CLI) | payer MEDICARE, OTHER ==
--- NOTE | 2021-07-24 14:01 | Ultrasound Report ---
PROCEDURE: Duplex Lwr Ext Arterial Bilat INDICATIONS: CHRONIC LEFT ANKLE ULCER, PVD TECHNIQUE: Color and pulse Doppler interrogation was performed of both lower extremity arterial systems, with im age documentation. COMPARISON: None FINDINGS: Right lower extremity: Common femoral artery: 236 cm/sec, with triphasic flow. Deep femoral artery: 47 cm/sec, with biphasic flow. Proximal superficial femoral artery: 81 cm/sec, with triphasic flow. Mid superficial femoral artery: 90 cm/sec, with triphasic flow. Distal superficial femoral artery: 80 cm/sec, with triphasic flow. Popliteal artery: 194 cm/sec, with triphasic flow. Posterior tibial artery: 1:15 cm/sec, with triphasic flow. Anterior tibial artery/dorsalis pedis: 73/111 cm/sec, with triphasic flow. Ross-scale imaging description: Mild calcified plaque seen throughout the right lower extremity. Left lower extremity: Common femoral artery: 199 cm/sec, with triphasic flow. Deep femoral artery: 176 cm/sec, with triphasic flow. Proximal superficial femoral artery: 184 cm/sec, with triphasic flow. Mid superficial femoral artery: 66 cm/sec, with triphasic flow. Distal superficial femoral artery: 23 cm/sec, with monophasic flow. Popliteal artery: 174 cm/sec, with monophasic flow. Posterior tibial artery: 55 cm/sec, with monophasic flow. Anterior tibial artery/dorsalis pedis: 26/26 cm/sec, with monophasic flow. Ross-scale imaging description: Mild calcified plaque throughout the left lower extremity. IMPRESSION: 1. Focal elevated velocity in the right BLOGS MANAGER consistent with stenosis greater than 50%. 2. Focal elevated velocity in the right popliteal artery consistent with stenosis greater than 50%. 3. Focal elevated velocity in the left popliteal artery consistent with stenosis greater than 50%. Consider MR angiogram for further evaluation. Reviewed by: Israel Fairchild on 07/24/2021 1:00 PM FAISAL Approved by: Israel Fairchild on 07/24/2021 1:00 PM [facility] Station ID: [id number]
== END 2021-07-24 09:08 | disposition home or self-care (01) ==
LOC: DI 09:07
PROVIDERS: ATTEND Nurse Practitioner
DX: I73.9 Peripheral vascular disease, unspecified (principal); L97.329 Non-pressure chronic ulcer of left ankle with unspecified severity; D75.1 Secondary polycythemia
CPT/HCPCS: 93925

== ENCOUNTER 2021-08-10 13:30 | Outpatient (CLI) | payer MEDICARE, OTHER | END 2021-08-10 13:31 | disposition home or self-care (01) | LOC: LAB.S 13:30 | PROVIDERS: ATTEND Internal Medicine | DX: I48.20 Chronic atrial fibrillation, unspecified (principal) | CPT/HCPCS: 36416; 85610 ==

== ENCOUNTER 2021-08-17 10:11 | Outpatient (CLI) | payer MEDICARE, OTHER | END 2021-08-17 10:12 | disposition home or self-care (01) | LOC: LAB.S 10:11 | PROVIDERS: ATTEND Internal Medicine | DX: I48.20 Chronic atrial fibrillation, unspecified (principal) | CPT/HCPCS: 36416; 85610 ==

== ENCOUNTER 2021-08-31 12:43 | Outpatient (CLI) | payer MEDICARE, OTHER | END 2021-08-31 12:44 | disposition home or self-care (01) | LOC: LAB.S 12:43 | PROVIDERS: ATTEND Internal Medicine | DX: I48.20 Chronic atrial fibrillation, unspecified (principal) | CPT/HCPCS: 36416; 85610 ==

== ENCOUNTER 2021-09-22 15:03 | Outpatient (CLI) | payer MEDICARE, OTHER | END 2021-09-22 15:04 | disposition home or self-care (01) | LOC: LAB.S 15:03 | PROVIDERS: ATTEND Internal Medicine | DX: I48.20 Chronic atrial fibrillation, unspecified (principal) | CPT/HCPCS: 36416; 85610 ==

== ENCOUNTER 2021-09-29 13:19 | Outpatient (CLI) | payer MEDICARE, OTHER | END 2021-09-29 13:20 | disposition home or self-care (01) | LOC: LAB.S 13:19 | PROVIDERS: ATTEND Internal Medicine | DX: I48.20 Chronic atrial fibrillation, unspecified (principal) | CPT/HCPCS: 36416; 85610 ==

== ENCOUNTER 2021-10-06 13:40 | Outpatient (CLI) | payer MEDICARE, OTHER | END 2021-10-06 13:41 | disposition home or self-care (01) | LOC: LAB.S 13:40 | PROVIDERS: ATTEND Internal Medicine | DX: I48.20 Chronic atrial fibrillation, unspecified (principal) | CPT/HCPCS: 36416; 85610 ==

== ENCOUNTER 2021-10-13 13:13 | Outpatient (CLI) | payer MEDICARE, OTHER | END 2021-10-13 13:14 | disposition home or self-care (01) | LOC: LAB.S 13:13 | PROVIDERS: ATTEND Internal Medicine | DX: I48.20 Chronic atrial fibrillation, unspecified (principal) | CPT/HCPCS: 36416; 85610 ==

== ENCOUNTER 2021-10-20 12:05 | Outpatient (CLI) | payer MEDICARE, OTHER | END 2021-10-20 12:06 | disposition home or self-care (01) | LOC: LAB.S 12:05 | PROVIDERS: ATTEND Internal Medicine | DX: I48.20 Chronic atrial fibrillation, unspecified (principal) | CPT/HCPCS: 36416; 85610 ==

== ENCOUNTER 2021-10-27 15:07 | Outpatient (CLI) | payer MEDICARE, OTHER | END 2021-10-27 15:08 | disposition home or self-care (01) | LOC: LAB.S 15:07 | PROVIDERS: ATTEND Internal Medicine | DX: I48.20 Chronic atrial fibrillation, unspecified (principal) | CPT/HCPCS: 36416; 85610 ==

== ENCOUNTER 2021-11-03 12:52 | Outpatient (CLI) | payer MEDICARE, OTHER | END 2021-11-03 12:53 | disposition home or self-care (01) | LOC: LAB.S 12:52 | PROVIDERS: ATTEND Internal Medicine | DX: I48.20 Chronic atrial fibrillation, unspecified (principal) | CPT/HCPCS: 36416; 85610 ==

== ENCOUNTER 2021-11-10 14:38 | Outpatient (CLI) | payer MEDICARE, OTHER | END 2021-11-10 14:39 | disposition home or self-care (01) | LOC: LAB.S 14:38 | PROVIDERS: ATTEND Internal Medicine | DX: I48.20 Chronic atrial fibrillation, unspecified (principal) | CPT/HCPCS: 36416; 85610 ==

== ENCOUNTER 2021-11-24 12:00 | Outpatient (CLI) | payer MEDICARE, OTHER | END 2021-11-24 12:01 | disposition home or self-care (01) | LOC: LAB.S 12:00 | PROVIDERS: ATTEND Registered Nurse | DX: I48.20 Chronic atrial fibrillation, unspecified (principal) | CPT/HCPCS: 36416; 85610 ==

== ENCOUNTER 2021-12-01 12:09 | Outpatient (CLI) | payer MEDICARE, OTHER | END 2021-12-01 12:10 | disposition home or self-care (01) | LOC: LAB.S 12:09 | PROVIDERS: ATTEND Registered Nurse | DX: I48.20 Chronic atrial fibrillation, unspecified (principal) | CPT/HCPCS: 36416; 85610 ==

== ENCOUNTER 2021-12-08 12:15 | Outpatient (CLI) | payer MEDICARE, OTHER | END 2021-12-08 12:16 | disposition home or self-care (01) | LOC: LAB.S 12:15 | PROVIDERS: ATTEND Registered Nurse | DX: I48.20 Chronic atrial fibrillation, unspecified (principal) | CPT/HCPCS: 36416; 85610 ==

== ENCOUNTER 2021-12-22 11:26 | Outpatient (CLI) | payer MEDICARE, OTHER | END 2021-12-22 11:27 | disposition home or self-care (01) | LOC: LAB.S 11:26 | PROVIDERS: ATTEND Registered Nurse | DX: I48.20 Chronic atrial fibrillation, unspecified (principal) | CPT/HCPCS: 36416; 85610 ==

== ENCOUNTER 2022-01-19 11:03 | Outpatient (CLI) | payer MEDICARE, OTHER | END 2022-01-19 11:04 | disposition home or self-care (01) | LOC: LAB.S 11:03 | PROVIDERS: ATTEND Registered Nurse | DX: I48.20 Chronic atrial fibrillation, unspecified (principal) | CPT/HCPCS: 36416; 85610 ==

== ENCOUNTER 2022-04-13 13:12 | Outpatient (CLI) | payer MEDICARE, OTHER ==
--- NOTE | 2022-04-13 16:39 | XRAY Report ---
PROCEDURE: Femur 2V LT INDICATIONS: HIP JOINT PAIN LEFT TECHNIQUE: 2 views of the left femur are obtained. views of the femur were acquired. COMPARISON: None. FINDINGS: Bones: No fractures or dislocations. No suspicious bony lesions. Soft tissues: No suspicious soft tissue calcifications or masses. IMPRESSION: No acute fracture. No osseous lesion. If symptoms and/or clinical suspicion for pathology continue, f urther assessment with repeat plain films, or advanced imaging (e.g., CT, MRI, or bone scan) is recom mended for further assessment. Reviewed by: Bisi Lock MD on 04/13/2022 4:38 PM PDT Approved by: Bisi Lock MD on 04/13/2022 4:38 PM PDT Station ID: [id number]
== END 2022-04-13 13:13 | disposition home or self-care (01) ==
LOC: LAB 13:12
PROVIDERS: ATTEND Family Medicine
DX: M25.552 Pain in left hip (principal)

== ENCOUNTER 2022-04-20 08:54 | Outpatient (CLI) | payer MEDICARE, OTHER | END 2022-04-20 08:55 | disposition home or self-care (01) | LOC: LAB.S 08:54 | PROVIDERS: ATTEND Nurse Practitioner Family | DX: I48.20 Chronic atrial fibrillation, unspecified (principal) | CPT/HCPCS: 36416; 85610 ==

== ENCOUNTER 2022-04-21 09:02 | Outpatient (CLI) | payer MEDICARE, OTHER | END 2022-04-21 09:03 | disposition home or self-care (01) | LOC: LAB.S 09:02 | PROVIDERS: ATTEND Nurse Practitioner Family | DX: I48.20 Chronic atrial fibrillation, unspecified (principal) | CPT/HCPCS: 36416; 85610 ==

== ENCOUNTER 2022-04-29 10:14 | Outpatient (CLI) | payer MEDICARE, OTHER | END 2022-04-29 10:15 | disposition home or self-care (01) | LOC: LAB.S 10:14 | PROVIDERS: ATTEND Nurse Practitioner Family | DX: I48.20 Chronic atrial fibrillation, unspecified (principal) | CPT/HCPCS: 36416; 85610 ==

== ENCOUNTER 2022-05-03 12:55 | Outpatient (CLI) | payer MEDICARE, OTHER ==
--- NOTE | 2022-05-04 08:41 | MRI Report ---
PROCEDURE: Brain W/O INDICATIONS: CEREBRAL INFRACTION TECHNIQUE: Noncontrast axial T1 spin echo, axial T2 fast spin echo, sagittal and axial FLAIR, coronal T2 fast sp in echo, axial gradient echo, axial diffusion and ADC through the brain. COMPARISON: 04/03/[address] FINDINGS: Encephalomalacia and gliosis in the right TRAFFIC ENGINEERING TECHNICIAN territory occipital lobe and posterior temporal lobe. T here is some associated cortical necrosis as well. Small remote right cerebellar hemispheric infarct is noted. No restricted diffusion to indicate recent ischemia. The major intracranial vascular flow-r elated signal voids are maintained. Exad-be-zfqthwff chronic mitral vascular ischemic changes and alonzo bal cerebral volume loss similar to the comparison study. No mass effect or midline shift. The ventri cular system and basilar cisterns are patent. No gross orbital abnormality. Paranasal sinuses and mas toid air cells are predominantly clear. IMPRESSION: No acute infarct or other acute intracranial finding. Remote right TRAFFIC ENGINEERING TECHNICIAN territory infarct involving the occipital lobe and posterior temporal lobe Small remote right cerebellar hemispheric infarct. Reviewed by: Shon Zacarias MD on 05/04/2022 8:40 AM PDT Approved by: Shon Zacarias MD on 05/04/2022 8:40 AM PDT Station ID: [id number]
== END 2022-05-03 12:56 | disposition home or self-care (01) ==
LOC: DI 12:55
PROVIDERS: ATTEND Nurse Practitioner Family
DX: I63.341 Cerebral infarction due to thrombosis of right cerebellar artery (principal)

== ENCOUNTER 2022-05-06 10:08 | Outpatient (CLI) | payer MEDICARE, OTHER | END 2022-05-06 10:09 | disposition home or self-care (01) | LOC: LAB.S 10:08 | PROVIDERS: ATTEND Nurse Practitioner Family | DX: I48.20 Chronic atrial fibrillation, unspecified (principal) | CPT/HCPCS: 36416; 85610 ==

== ENCOUNTER 2022-05-26 10:53 | Outpatient (CLI) | payer MEDICARE, OTHER | END 2022-05-26 10:54 | disposition home or self-care (01) | LOC: LAB.S 10:53 | PROVIDERS: ATTEND Nurse Practitioner Family | DX: I48.20 Chronic atrial fibrillation, unspecified (principal) | CPT/HCPCS: 36416; 85610 ==

== ENCOUNTER 2022-06-10 10:49 | Outpatient (CLI) | payer MEDICARE, OTHER | END 2022-06-10 10:50 | disposition home or self-care (01) | LOC: LAB.S 10:49 | PROVIDERS: ATTEND Nurse Practitioner Family | DX: I48.20 Chronic atrial fibrillation, unspecified (principal) | CPT/HCPCS: 36416; 85610 ==

== ENCOUNTER 2022-06-23 11:12 | Outpatient (CLI) | payer MEDICARE, OTHER | END 2022-06-23 11:13 | disposition home or self-care (01) | LOC: LAB.S 11:12 | PROVIDERS: ATTEND Nurse Practitioner Family | DX: I48.20 Chronic atrial fibrillation, unspecified (principal) | CPT/HCPCS: 36416; 85610 ==

== ENCOUNTER 2022-06-27 10:02 | Outpatient (CLI) | payer MEDICARE, OTHER | END 2022-06-27 10:03 | disposition home or self-care (01) | LOC: LAB.S 10:02 | PROVIDERS: ATTEND Nurse Practitioner Family | DX: I48.20 Chronic atrial fibrillation, unspecified (principal) | CPT/HCPCS: 36416; 85610 ==

== ENCOUNTER 2022-07-04 10:44 | Outpatient (CLI) | payer MEDICARE, OTHER | END 2022-07-04 10:45 | disposition home or self-care (01) | LOC: LAB.S 10:44 | PROVIDERS: ATTEND Nurse Practitioner Family | DX: I48.20 Chronic atrial fibrillation, unspecified (principal) | CPT/HCPCS: 36416; 85610 ==

== ENCOUNTER 2022-07-18 14:33 | Outpatient (CLI) | payer MEDICARE, OTHER | END 2022-07-18 14:34 | disposition home or self-care (01) | LOC: LAB.S 14:33 | PROVIDERS: ATTEND Nurse Practitioner Family | DX: I48.20 Chronic atrial fibrillation, unspecified (principal) | CPT/HCPCS: 36416; 85610 ==

== ENCOUNTER 2022-07-27 07:00 | Outpatient (CLI) | payer MEDICARE, OTHER | END 2022-07-27 23:59 | disposition home or self-care (01) | LOC: LAB.S 07:00 | PROVIDERS: ATTEND Nurse Practitioner Family | DX: I48.20 Chronic atrial fibrillation, unspecified (principal) | CPT/HCPCS: 36416; 85610 ==

== ENCOUNTER 2022-08-04 10:41 | Outpatient (CLI) | payer MEDICARE, OTHER | END 2022-08-04 10:42 | disposition home or self-care (01) | LOC: LAB.S 10:41 | PROVIDERS: ATTEND Nurse Practitioner Family | DX: I48.20 Chronic atrial fibrillation, unspecified (principal) | CPT/HCPCS: 36416; 85610 ==

== ENCOUNTER 2022-08-18 13:31 | Outpatient (CLI) | payer MEDICARE, OTHER | END 2022-08-18 13:32 | disposition home or self-care (01) | LOC: LAB 13:31 | PROVIDERS: ATTEND Nurse Practitioner Family | DX: I48.20 Chronic atrial fibrillation, unspecified (principal) | CPT/HCPCS: 36416; 85610 ==

== ENCOUNTER 2022-08-25 11:40 | Outpatient (CLI) | payer MEDICARE, OTHER ==
[2022-08-25 15:42] LABS: ALBUMIN 4.2 g/dL (3.2-5.5); ALKALINE PHOSPHATASE 184 IU/L (42-121); ALT ALANINE AMINOTRANSFERASE 37 IU/L (10-60); AST ASPARTATE AMINOTRANSFERASE 42 IU/L (10-42); BILIRUBIN,DIRECT 0.1 mg/dL (0.1-0.5); BILIRUBIN,TOTAL 0.9 mg/dL (0.2-1.0); CHOL/HDL RATIO 3.7 (<5.0); CHOLESTEROL 107 mg/dL; HDL CHOLESTEROL 29 mg/dL; LDL CHOLESTEROL,CALCULATED 55 mg/dL; LDL/HDL RATIO 1.9 (<3.6); TOTAL PROTEIN 6.6 g/dL (6.7-8.2); TRIGLYCERIDES 117 mg/dL; VLDL CHOLESTEROL 23 mg/dL
== END 2022-08-25 11:41 | disposition home or self-care (01) ==
LOC: LAB.S 11:40
PROVIDERS: ATTEND Nurse Practitioner Family
DX: E78.49 Other hyperlipidemia (principal); I48.20 Chronic atrial fibrillation, unspecified
CPT/HCPCS: 36415; 80061; 80076; 83721; 85610

== ENCOUNTER 2022-09-01 11:44 | Outpatient (CLI) | payer MEDICARE, OTHER | END 2022-09-01 11:45 | disposition home or self-care (01) | LOC: LAB.S 11:44 | PROVIDERS: ATTEND Family Medicine | DX: I48.20 Chronic atrial fibrillation, unspecified (principal) | CPT/HCPCS: 36416; 85610 ==

== ENCOUNTER 2022-09-08 09:32 | Outpatient (CLI) | payer MEDICARE, OTHER | END 2022-09-08 09:33 | disposition home or self-care (01) | LOC: LAB.S 09:32 | PROVIDERS: ATTEND Family Medicine | DX: I48.20 Chronic atrial fibrillation, unspecified (principal) | CPT/HCPCS: 36416; 85610 ==

== ENCOUNTER 2022-09-15 12:05 | Outpatient (CLI) | payer MEDICARE, OTHER | END 2022-09-15 12:06 | disposition home or self-care (01) | LOC: LAB.S 12:05 | PROVIDERS: ATTEND Nurse Practitioner Family | DX: I48.20 Chronic atrial fibrillation, unspecified (principal) | CPT/HCPCS: 36416; 85610 ==

== ENCOUNTER 2022-09-22 09:06 | Outpatient (CLI) | payer MEDICARE, OTHER | END 2022-09-22 09:07 | disposition home or self-care (01) | LOC: LAB 09:06 | PROVIDERS: ATTEND Nurse Practitioner Family | DX: I48.20 Chronic atrial fibrillation, unspecified (principal) | CPT/HCPCS: 36416; 85610 ==

== ENCOUNTER 2022-09-28 10:56 | Outpatient (CLI) | payer MEDICARE, OTHER | END 2022-09-28 10:57 | disposition home or self-care (01) | LOC: LAB 10:56 | PROVIDERS: ATTEND Family Medicine | DX: I48.20 Chronic atrial fibrillation, unspecified (principal) | CPT/HCPCS: 36416; 85610 ==

== ENCOUNTER 2022-10-04 08:13 | Outpatient (CLI) | payer MEDICARE, OTHER ==
[2022-10-04 15:40] LABS: CALCIUM 8.8 mg/dL (8.5-10.3); CREATININE 0.7 mg/dL (0.6-1.2); POTASSIUM 4.7 mmol/L (3.5-5.0)
[2022-10-04 15:49] LABS: THYROID STIMULATING HORMONE 5.69 uIU/mL (0.34-5.60)
[2022-10-04 16:39] LABS: FREE T4 (FREE THYROXINE) 1.03 ng/dL (0.58-1.64)
[2022-10-04 20:36] LABS: ESTIMATED AVERAGE GLUCOSE 117 mg/dL (70-100); HEMOGLOBIN A1c% 5.7 % (4.27-6.07)
== END 2022-10-04 08:14 | disposition home or self-care (01) ==
LOC: LAB.S 08:13
PROVIDERS: ATTEND Nurse Practitioner Family
DX: I48.20 Chronic atrial fibrillation, unspecified (principal); E03.9 Hypothyroidism, unspecified; E11.9 Type 2 diabetes mellitus without complications; R63.4 Abnormal weight loss; D75.81 Myelofibrosis
CPT/HCPCS: 36415; 80048; 83036; 84439; 84443; 85610

== ENCOUNTER 2022-10-11 14:29 | Outpatient (CLI) | payer MEDICARE, OTHER | END 2022-10-11 14:30 | disposition home or self-care (01) | LOC: LAB.S 14:29 | PROVIDERS: ATTEND Family Medicine | DX: I48.20 Chronic atrial fibrillation, unspecified (principal) | CPT/HCPCS: 36416; 85610 ==

== ENCOUNTER 2022-10-18 10:41 | Outpatient (CLI) | payer MEDICARE, OTHER | END 2022-10-18 10:42 | disposition home or self-care (01) | LOC: LAB.S 10:41 | PROVIDERS: ATTEND Family Medicine | DX: I48.20 Chronic atrial fibrillation, unspecified (principal) | CPT/HCPCS: 85610 ==

== ENCOUNTER 2022-10-25 10:59 | Outpatient (CLI) | payer MEDICARE, OTHER | END 2022-10-25 11:00 | disposition home or self-care (01) | LOC: LAB.S 10:59 | PROVIDERS: ATTEND Family Medicine | DX: I48.20 Chronic atrial fibrillation, unspecified (principal) | CPT/HCPCS: 85610 ==

== ENCOUNTER 2022-11-01 10:51 | Outpatient (CLI) | payer MEDICARE, OTHER | END 2022-11-01 10:52 | disposition home or self-care (01) | LOC: LAB.S 10:51 | PROVIDERS: ATTEND Family Medicine | DX: I48.20 Chronic atrial fibrillation, unspecified (principal) | CPT/HCPCS: 36416; 85610 ==

== ENCOUNTER 2022-11-15 11:36 | Outpatient (CLI) | payer MEDICARE, OTHER | END 2022-11-15 11:37 | disposition home or self-care (01) | LOC: LAB.S 11:36 | PROVIDERS: ATTEND Family Medicine | DX: I48.20 Chronic atrial fibrillation, unspecified (principal) | CPT/HCPCS: 36416; 85610 ==

== ENCOUNTER 2022-11-22 10:03 | Outpatient (CLI) | payer MEDICARE, OTHER | END 2022-11-22 10:04 | disposition home or self-care (01) | LOC: LAB.S 10:03 | PROVIDERS: ATTEND Family Medicine | DX: I48.20 Chronic atrial fibrillation, unspecified (principal) | CPT/HCPCS: 85610 ==

== ENCOUNTER 2022-12-06 10:31 | Outpatient (CLI) | payer MEDICARE, OTHER | END 2022-12-06 10:32 | disposition home or self-care (01) | LOC: LAB.S 10:31 | PROVIDERS: ATTEND Family Medicine | DX: I48.20 Chronic atrial fibrillation, unspecified (principal) | CPT/HCPCS: 36416; 85610 ==

== ENCOUNTER 2022-12-13 09:25 | Outpatient (CLI) | payer MEDICARE, OTHER | END 2022-12-13 09:26 | disposition home or self-care (01) | LOC: LAB.S 09:25 | PROVIDERS: ATTEND Family Medicine | DX: I48.20 Chronic atrial fibrillation, unspecified (principal) | CPT/HCPCS: 36416; 85610 ==

== ENCOUNTER 2022-12-20 10:08 | Outpatient (CLI) | payer MEDICARE, OTHER | END 2022-12-20 10:09 | disposition home or self-care (01) | LOC: LAB.S 10:08 | PROVIDERS: ATTEND Family Medicine | DX: I48.20 Chronic atrial fibrillation, unspecified (principal) | CPT/HCPCS: 36415; 85610 ==

== ENCOUNTER 2023-01-03 11:48 | Outpatient (CLI) | payer MEDICARE, OTHER | END 2023-01-03 11:49 | disposition home or self-care (01) | LOC: LAB.S 11:48 | PROVIDERS: ATTEND Family Medicine | DX: I48.20 Chronic atrial fibrillation, unspecified (principal) | CPT/HCPCS: 36416; 85610 ==

== ENCOUNTER 2023-01-10 07:58 | Outpatient (CLI) | payer MEDICARE, OTHER ==
[2023-01-10 14:59] LABS: POTASSIUM 5.1 mmol/L (3.5-5.0)
[2023-01-10 15:09] LABS: THYROID STIMULATING HORMONE 3.9 uIU/mL (0.34-5.60)
[2023-01-10 21:17] LABS: ESTIMATED AVERAGE GLUCOSE 134 mg/dL (70-100); HEMOGLOBIN A1c% 6.3 % (4.27-6.07)
== END 2023-01-10 07:59 | disposition home or self-care (01) ==
LOC: LAB.S 07:58
PROVIDERS: ATTEND Family Medicine
DX: I48.20 Chronic atrial fibrillation, unspecified (principal); E11.9 Type 2 diabetes mellitus without complications; E03.9 Hypothyroidism, unspecified
CPT/HCPCS: 36415; 80048; 83036; 84443; 85610

== ENCOUNTER 2023-01-17 10:36 | Outpatient (CLI) | payer MEDICARE, OTHER | END 2023-01-17 10:37 | disposition home or self-care (01) | LOC: LAB.S 10:36 | PROVIDERS: ATTEND Family Medicine | DX: I48.20 Chronic atrial fibrillation, unspecified (principal) | CPT/HCPCS: 36416; 85610 ==

== ENCOUNTER 2023-01-26 12:56 | Outpatient (CLI) | payer MEDICARE, OTHER ==
--- NOTE | 2023-01-26 16:52 | Ultrasound Report ---
PROCEDURE: Duplex Lwr Ext Arterial LT INDICATIONS: LEFT LEG CLAUDICATION TECHNIQUE: Color and pulse Doppler interrogation was performed of the left lower extremity arterial system, with image documentation. COMPARISON: 07/24/2021 FINDINGS: Common femoral artery: 90 cm/s, 136 cm/sec, with biphasic and triphasic flow. Deep femoral artery: 109 cm/sec, with biphasic flow. Proximal superficial femoral artery: 36 cm/sec, with biphasic flow. Mid superficial femoral artery: 45 cm/sec, with triphasic flow. Distal superficial femoral artery: 35 cm/sec, with triphasic flow. Popliteal artery: 19 cm/sec, with monophasic flow. Posterior tibial artery: 37 cm/sec, with monophasic flow. Anterior tibial artery/dorsalis pedis: 36 cm/sec, with phasic flow. Ross-scale imaging description: Calcified plaque within the common femoral artery and distal superfi cial femoral artery IMPRESSION: 1. Findings suggestive of a hematoma intimately significant left-sided distal outflow stenosis. Initi al further assessment with MR angiography runoff evaluation is recommended. Reviewed by: Bisi Lock MD on 01/26/2023 4:50 PM PDT Approved by: Bisi Lock MD on 01/26/2023 4:50 PM PDT Station ID: [id number]
== END 2023-01-26 12:57 | disposition home or self-care (01) ==
LOC: DI 12:56
PROVIDERS: ATTEND Family Medicine
DX: I73.9 Peripheral vascular disease, unspecified (principal)

== ENCOUNTER 2023-01-31 10:53 | Outpatient (CLI) | payer MEDICARE, OTHER | END 2023-01-31 10:54 | disposition home or self-care (01) | LOC: LAB.S 10:53 | PROVIDERS: ATTEND Family Medicine | DX: Z79.01 Long term (current) use of anticoagulants (principal) | CPT/HCPCS: 36416; 85610 ==

== ENCOUNTER 2023-02-17 13:45 | Outpatient (CLI) | payer MEDICARE, OTHER ==
[~2023-02-17 13:45] MED LIST: GADOBUTROL 15 MMOL/15 ML VIAL ONE
[2023-02-17] MEDS ORDERED: GADOBUTROL 15 MMOL/15 ML VIAL IVP ONE (15:10)
--- NOTE | 2023-02-21 10:14 | MRI Report ---
PROCEDURE: ANGIO LOWER EXT W/WO B/L INDICATIONS: PAD, CLAUDICATION CONTRAST: GADAVIST 12.0 ML TECHNIQUE: Precontrast axial and coronal balanced GE acquired through the abdomen and pelvis. Multi-station [facility] coronal MRA using Care Bolus timing from the kidneys to the ankles during the administration of contrast, with 3-dimensional maximum intensity projection (MIP) reformats constructed. COMPARISON: Left lower extremity duplex ultrasound dated 08/28/2022. FINDINGS: Image quality: Excellent. ABDOMEN: Aorta: Only distal aspect as imaged, widely patent. Renal arteries: Not included on the study. Extravascular soft tissues: Limited visualized solid organs are normal in size on limited pre-contras t images. Bowel loops are normal in caliber. No free fluid. No retroperitoneal or mesenteric adeno vamsi by size criteria. No ventral hernias. Bones: Marrow demonstrates normal overall signal. PELVIS AND BILATERAL LOWER EXTREMITIES: Right sided vessels: Right common iliac, external iliac, common femoral, SFA, popliteal, and 3 runof f vessels are patent. Left sided vessels: Left common iliac, external iliac, common femoral, and SFA are patent. There is either extensive significant disease of the left popliteal artery from Carson's canal through the pop liteal or occlusion of the entire popliteal artery. There is probable three-vessel runoff. IMPRESSION: 1. No significant stenotic disease of the aorta and iliacs. 2. Right lower extremity arterial runoff is widely patent. 3. On the left, there is significant disease or occlusion of the entirety of the popliteal artery. Th ere is probable three-vessel runoff. Comment: If patient has lifestyle limiting claudication or symptoms of chronic limb ischemia, recomme nd possible referral for angiography. Reviewed by: Bay Jain MD on 02/21/2023 10:13 AM PDT Approved by: Bay Jian MD on 02/21/2023 10:13 AM PDT Station ID: [id number]
== END 2023-02-17 13:46 | disposition home or self-care (01) ==
LOC: DI 13:45
PROVIDERS: ATTEND Family Medicine
DX: I77.9 Disorder of arteries and arterioles, unspecified (principal); I73.9 Peripheral vascular disease, unspecified
CPT/HCPCS: 73725; A9585

== ENCOUNTER 2023-02-21 10:29 | Outpatient (CLI) | payer MEDICARE, OTHER | END 2023-02-21 10:30 | disposition home or self-care (01) | LOC: LAB.S 10:29 | PROVIDERS: ATTEND Family Medicine | DX: I48.20 Chronic atrial fibrillation, unspecified (principal) | CPT/HCPCS: 36416; 85610 ==

== ENCOUNTER 2023-03-07 11:29 | Outpatient (CLI) | payer MEDICARE, OTHER | END 2023-03-07 11:30 | disposition home or self-care (01) | LOC: LAB.S 11:29 | PROVIDERS: ATTEND Family Medicine | DX: I48.20 Chronic atrial fibrillation, unspecified (principal) | CPT/HCPCS: 36416; 85610 ==

== ENCOUNTER 2023-03-14 10:08 | Outpatient (CLI) | payer MEDICARE, OTHER | END 2023-03-14 10:09 | disposition home or self-care (01) | LOC: LAB.S 10:08 | PROVIDERS: ATTEND Family Medicine | DX: I48.20 Chronic atrial fibrillation, unspecified (principal) | CPT/HCPCS: 36416; 85610 ==

== ENCOUNTER 2023-03-21 07:54 | Outpatient (CLI) | payer MEDICARE, OTHER | END 2023-03-21 07:55 | disposition home or self-care (01) | LOC: LAB.S 07:54 | PROVIDERS: ATTEND Family Medicine | DX: I48.20 Chronic atrial fibrillation, unspecified (principal) | CPT/HCPCS: 36416; 85610 ==

== ENCOUNTER 2023-03-28 10:46 | Outpatient (CLI) | payer MEDICARE, OTHER | END 2023-03-28 10:47 | disposition home or self-care (01) | LOC: LAB.S 10:46 | PROVIDERS: ATTEND Family Medicine | DX: I48.20 Chronic atrial fibrillation, unspecified (principal) | CPT/HCPCS: 36416; 85610 ==

== ENCOUNTER 2023-04-11 09:28 | Outpatient (CLI) | payer MEDICARE, OTHER | END 2023-04-11 09:29 | disposition home or self-care (01) | LOC: LAB 09:28 | PROVIDERS: ATTEND Family Medicine | DX: I48.20 Chronic atrial fibrillation, unspecified (principal) | CPT/HCPCS: 36416; 85610 ==

== ENCOUNTER 2023-04-18 12:22 | Outpatient (CLI) | payer MEDICARE, OTHER ==
--- NOTE | 2023-04-18 14:20 | XRAY Report ---
PROCEDURE: Hip w/Pelvis 2-3V RT INDICATIONS: HIP JOINT PAIN IRHGT TECHNIQUE: AP pelvis with lateral view(s) of the right hip(s). COMPARISON: None. FINDINGS: Bones: No fractures or dislocations. No suspicious bony lesions. Severe right hip osteoarthritis wi th osseous hypertrophy, joint space narrowing and subchondral sclerosis. Soft tissues: No suspicious soft tissue calcifications or masses. IMPRESSION: Severe right hip osteoarthritis. Reviewed by: Mariajose Bowles MD, PhD on 04/18/2023 2:19 PM PDT Approved by: Mariajose Bowles MD, PhD on 04/18/2023 2:19 PM PDT Station ID: [id number]
--- NOTE | 2023-04-18 14:21 | XRAY Report ---
PROCEDURE: Lumbar Spine Complete INDICATIONS: HIP JOINT PAIN RIGHT TECHNIQUE: 4 views of the lumbar spine were acquired including oblique views. COMPARISON: None. FINDINGS: Bones: 5 [id number] vertebrae are present. There is mild, approximately 8 mm of L1-L2 retrolis thesis. There is trace, approximately 3 mm of L2-L3 retrolisthesis. No vertebral body compression fra ctures. No suspicious bony lesions. Moderate degenerative disc disease noted throughout the lumbar s pine. Mild L3-L4, L4-L5 and L5-S1 facet arthropathy. Soft tissues: Overlying bowel gas pattern is normal. No suspicious soft tissue calcifications. Obliques: No pars defects. IMPRESSION: 1. Multilevel degenerative disc disease. 2. Multilevel facet arthropathy. 3. No fracture. No acute osseous lesion. If there is continued clinical concern for pathology, then M RI should be considered for further evaluation. Reviewed by: Mariajose Bowles MD, PhD on 04/18/2023 2:20 PM PDT Approved by: Mariajose Bowles MD, PhD on 04/18/2023 2:20 PM PDT Station ID: [id number]
== END 2023-04-18 12:23 | disposition home or self-care (01) ==
LOC: DI 12:22
PROVIDERS: ATTEND Family Medicine
DX: M16.11 Unilateral primary osteoarthritis, right hip (principal); M51.36 Other intervertebral disc degeneration, lumbar region; M47.816 Spondylosis without myelopathy or radiculopathy, lumbar region

== ENCOUNTER 2023-04-25 10:51 | Outpatient (CLI) | payer MEDICARE, OTHER | END 2023-04-25 10:52 | disposition home or self-care (01) | LOC: LAB.S 10:51 | PROVIDERS: ATTEND Family Medicine | DX: I48.20 Chronic atrial fibrillation, unspecified (principal) | CPT/HCPCS: 36416; 85610 ==

== ENCOUNTER 2023-05-09 11:29 | Outpatient (CLI) | payer MEDICARE, OTHER | END 2023-05-09 11:30 | disposition home or self-care (01) | LOC: LAB.S 11:29 | PROVIDERS: ATTEND Family Medicine | DX: I48.20 Chronic atrial fibrillation, unspecified (principal) | CPT/HCPCS: 85610 ==

== ENCOUNTER 2023-05-23 11:38 | Outpatient (CLI) | payer MEDICARE, OTHER | END 2023-05-23 11:39 | disposition home or self-care (01) | LOC: LAB.S 11:38 | PROVIDERS: ATTEND Family Medicine | DX: I48.20 Chronic atrial fibrillation, unspecified (principal) | CPT/HCPCS: 36416; 85610 ==

== ENCOUNTER 2023-06-06 10:59 | Outpatient (CLI) | payer MEDICARE, OTHER | END 2023-06-06 11:00 | disposition home or self-care (01) | LOC: LAB.S 10:59 | PROVIDERS: ATTEND Family Medicine | DX: I48.20 Chronic atrial fibrillation, unspecified (principal) | CPT/HCPCS: 36416; 85610 ==

== ENCOUNTER 2023-06-13 10:10 | Outpatient (CLI) | payer MEDICARE, OTHER | END 2023-06-13 10:11 | disposition home or self-care (01) | LOC: LAB.S 10:10 | PROVIDERS: ATTEND Family Medicine | DX: I48.20 Chronic atrial fibrillation, unspecified (principal) | CPT/HCPCS: 36416; 85610 ==

== ENCOUNTER 2023-06-20 11:19 | Outpatient (CLI) | payer MEDICARE, OTHER | END 2023-06-20 11:20 | disposition home or self-care (01) | LOC: LAB.S 11:19 | PROVIDERS: ATTEND Family Medicine | DX: I48.20 Chronic atrial fibrillation, unspecified (principal) | CPT/HCPCS: 36416; 85610 ==

== ENCOUNTER 2023-07-04 12:46 | Outpatient (CLI) | payer MEDICARE, OTHER | END 2023-07-04 12:47 | disposition home or self-care (01) | LOC: LAB.S 12:46 | PROVIDERS: ATTEND Family Medicine | DX: I48.20 Chronic atrial fibrillation, unspecified (principal) | CPT/HCPCS: 36416; 85610 ==

== ENCOUNTER 2023-07-11 09:07 | Outpatient (CLI) | payer MEDICARE, OTHER | END 2023-07-11 09:08 | disposition home or self-care (01) | LOC: LAB.S 09:07 | PROVIDERS: ATTEND Family Medicine | DX: I48.20 Chronic atrial fibrillation, unspecified (principal) | CPT/HCPCS: 36416; 85610 ==

== ENCOUNTER 2023-07-18 09:54 | Outpatient (CLI) | payer MEDICARE, OTHER | END 2023-07-18 09:55 | disposition home or self-care (01) | LOC: LAB.S 09:54 | PROVIDERS: ATTEND Family Medicine | DX: I48.20 Chronic atrial fibrillation, unspecified (principal) | CPT/HCPCS: 36416; 85610 ==

== ENCOUNTER 2023-08-02 13:24 | Outpatient (CLI) | payer MEDICARE, OTHER | END 2023-08-02 13:25 | disposition home or self-care (01) | LOC: LAB.S 13:24 | PROVIDERS: ATTEND Family Medicine | DX: I48.20 Chronic atrial fibrillation, unspecified (principal) | CPT/HCPCS: 36416; 85610 ==

== ENCOUNTER 2023-08-22 11:12 | Outpatient (CLI) | payer MEDICARE, OTHER | END 2023-08-22 11:13 | disposition home or self-care (01) | LOC: LAB.S 11:12 | PROVIDERS: ATTEND Family Medicine | DX: I48.20 Chronic atrial fibrillation, unspecified (principal) | CPT/HCPCS: 85610 ==

== ENCOUNTER 2023-09-19 11:57 | Outpatient (CLI) | payer MEDICARE, OTHER | END 2023-09-19 11:58 | disposition home or self-care (01) | LOC: LAB.S 11:57 | PROVIDERS: ATTEND Family Medicine | DX: I48.20 Chronic atrial fibrillation, unspecified (principal) | CPT/HCPCS: 36416; 85610 ==

== ENCOUNTER 2023-10-03 11:12 | Outpatient (CLI) | payer MEDICARE, OTHER | END 2023-10-03 11:13 | disposition home or self-care (01) | LOC: LAB.S 11:12 | PROVIDERS: ATTEND Family Medicine | DX: I48.20 Chronic atrial fibrillation, unspecified (principal) | CPT/HCPCS: 36416; 85610 ==

== ENCOUNTER 2023-11-02 13:25 | Outpatient (CLI) | payer MEDICARE, OTHER | END 2023-11-02 13:26 | disposition home or self-care (01) | LOC: LAB.S 13:25 | PROVIDERS: ATTEND Family Medicine | DX: I48.20 Chronic atrial fibrillation, unspecified (principal) | CPT/HCPCS: 36416; 85610 ==

== ENCOUNTER 2023-11-10 11:52 | Outpatient (CLI) | payer MEDICARE, OTHER | END 2023-11-10 11:53 | disposition home or self-care (01) | LOC: LAB.S 11:52 | PROVIDERS: ATTEND Family Medicine | DX: I48.20 Chronic atrial fibrillation, unspecified (principal) | CPT/HCPCS: 36416; 85610 ==

== ENCOUNTER 2023-11-23 11:29 | Outpatient (CLI) | payer MEDICARE, OTHER | END 2023-11-23 11:30 | disposition home or self-care (01) | LOC: LAB.S 11:29 | PROVIDERS: ATTEND Family Medicine | DX: I48.20 Chronic atrial fibrillation, unspecified (principal) | CPT/HCPCS: 36416; 85610 ==

== ENCOUNTER 2023-12-06 14:29 | Outpatient (CLI) | payer MEDICARE, OTHER | END 2023-12-06 14:30 | disposition home or self-care (01) | LOC: LAB.S 14:29 | PROVIDERS: ATTEND Family Medicine | DX: I48.20 Chronic atrial fibrillation, unspecified (principal) | CPT/HCPCS: 36416; 85610 ==

== ENCOUNTER 2024-01-24 08:41 | Outpatient (CLI) | payer MEDICARE, OTHER | END 2024-01-24 08:42 | disposition home or self-care (01) | LOC: LAB 08:41 | PROVIDERS: ATTEND Family Medicine | DX: I48.20 Chronic atrial fibrillation, unspecified (principal) | CPT/HCPCS: 85610 ==

== ENCOUNTER 2024-02-20 14:36 | Outpatient (CLI) | payer MEDICARE, OTHER | END 2024-02-20 14:37 | disposition home or self-care (01) | LOC: LAB 14:36 | PROVIDERS: ATTEND Family Medicine | DX: I48.20 Chronic atrial fibrillation, unspecified (principal) | CPT/HCPCS: 36416; 85610 ==

== ENCOUNTER 2024-03-19 02:25 | Outpatient (CLI) | payer MEDICARE, OTHER | END 2024-03-19 23:17 | disposition critical access hospital (66) | LOC: EMS 02:25 | DX: R19.7 Diarrhea, unspecified (principal); R53.1 Weakness; I48.91 Unspecified atrial fibrillation | CPT/HCPCS: A0425; A0427 ==

== ENCOUNTER 2024-03-19 02:59 | Emergency (ER) | payer MEDICARE, OTHER ==
[2024-03-19 03:45] LABS: BASOPHILS % (AUTO) 1.2 %; EOSINOPHILS % (AUTO) 1.2 %; HCT - HEMATOCRIT 26.4 % (42.0-52.0); HGB - HEMOGLOBIN 8.9 g/dL (14.0-18.0); LYMPHOCYTES % (AUTO) 20.5 %; MEAN CORPUSCULAR HEMOGLOBIN 44.1 pg (27.0-31.0); MEAN CORPUSCULAR HGB CONC 33.7 g/dL (32.0-36.0); MEAN CORPUSCULAR VOLUME 130.7 fL (80.0-94.0); MONOCYTES % (AUTO) 14.5 %; NEUTROPHILS % (AUTO) 61.4 %; PLT - PLATELET COUNT 464 10^3/uL (130-450); RED BLOOD COUNT 2.02 10^6/uL (4.70-6.10); RED CELL DISTRIBUTION WIDTH 15.6 % (12.0-15.0)
[2024-03-19 03:51] LABS: INR 4.4 (0.8-1.2); PT - PROTHROMBIN TIME 43.4 secs (9.9-12.6)
[2024-03-19 03:52] LABS: WHITE BLOOD COUNT 0.8 x10^3/uL (4.8-10.8)
[2024-03-19 03:55] LABS: ABNORMAL LYMPHS % (MANUAL) 0 %; BAND NEUTROPHILS % (MANUAL) 0 %
[2024-03-19 04:04] LABS: ALBUMIN 4.1 g/dL (3.2-5.5); ALBUMIN/GLOBULIN RATIO 2.2 (1.0-2.2); BILIRUBIN,TOTAL 0.7 mg/dL (0.2-1.0); CALCIUM 9.5 mg/dL (8.5-10.3); CREATININE 1.5 mg/dL (0.6-1.3); POTASSIUM 3.7 mmol/L (3.5-4.5)
[2024-03-19 04:07] LABS: TROPONIN I HIGH SENSITIVITY 29.1 ng/L (2.3-19.7)
[2024-03-19 04:26] LABS: LYMPHOCYTES # (MANUAL) 0.3 10^3/uL (1.5-3.5); LYMPHOCYTES % (MANUAL) 36 %; MONOCYTES # (MANUAL) 0.1 10^3/uL (0.0-1.0); NEUTROPHILS # (MANUAL) 0.4 10^3/uL (1.5-6.6)
[2024-03-19 04:27] LABS: DIFFERENTIAL COMMENT MANUAL DIFFERENTIAL; PLATELET ESTIMATE, MANUAL INCREASED (>450,000) (NORMAL)
[2024-03-19 04:45] LABS: B. PARAPERTUSSIS- RESP PCR PAN NOT DETECTED; B. PERTUSSIS- RESP PCR PANEL NOT DETECTED; C. PNEUMONIAE- RESP PCR PANEL NOT DETECTED; CORONAVIRUS 229E-RESP PCR NOT DETECTED; CORONAVIRUS HKU1-RESP PCR NOT DETECTED; CORONAVIRUS NL63-RESP PCR NOT DETECTED; CORONAVIRUS OC43-RESP PCR NOT DETECTED; HUMAN METAPNEUMOVIRUS NOT DETECTED; INFLUENZA A- RESP PCR PANEL NOT DETECTED; INFLUENZA B - RESP PCR PANEL NOT DETECTED; M. PNEUMONIAE- RESP PCR PANEL NOT DETECTED; PARAINFLUENZA VIRUS 1 NOT DETECTED; PARAINFLUENZA VIRUS 2 NOT DETECTED; PARAINFLUENZA VIRUS 3 NOT DETECTED; PARAINFLUENZA VIRUS 4 NOT DETECTED; RHINOVIRUS/ENTEROVIRUS NOT DETECTED; RSV- RESP PCR PANEL NOT DETECTED; SARS-CoV-2 -RESP PCR PANEL NOT DETECTED
[2024-03-19] MEDS: SODIUM CHLORIDE 0.9% 1,000 ML IV STA ×2 (04:53→05:51)
--- NOTE | 2024-03-19 05:14 | ED Physician Documentation ---
History of Present Illness - Stated complaint Stated Complaint: WEAKNESS, DIARRHEA, HYPOTENTION - Chief complaint Chief Complaint: Cardiac - History obtained from History obtained from: Patient, Family - Additonal information Additional information: HPI is predominantly from patient, although family member at bedside also contributes to HPI. Patient complains of diarrhea since yesterday. Although on my HPI, the patient is denying weakness, family member at bedside says the patient has been exhibiting weakness since onset of diarrhea. Family called 911 tonight. EMS report includes hypotensive readings in the field (mid 80s systolic blood pressures) and tachycardia. Patient denies abdominal pain, fever, blood in stool, black/tarry stool. Past medical history includes essential thrombocytosis, polycythemia vera, atrial fibrillation/flutter (for which he takes warfarin). PD PAST MEDICAL HISTORY - Past Medical History Past Medical History: Yes Cardiovascular: Atrial fibrillation, Other Respiratory: None Neuro: None Endocrine/Autoimmune: None GI: None : None HEENT: Chronic vision loss Psych: None Musculoskeletal: None Derm: None - Past Surgical History Past Surgical History: Yes General: Other Cardiovascular: Other - Present Medications Home Medications: Ambulatory Orders Medication Instructions Recorded Confirmed Lisinopril [Zestril] 20 mg PO DAILY 12/14/21 03/19/24 Multivit-Min/Iron/Folic Acid/K 1 tab PO DAILY 12/14/21 03/19/24 [Multi-Day Plus Minerals Tablet] Conway-3S/Dha/Epa/Fish Oil [Fish 2 mg PO DAILY 12/14/21 03/19/24 Oil 1,200 mg Softgel] Warfarin [Coumadin] 10 mg PO UD 12/14/21 03/19/24 atenoloL [Tenormin] 25 mg PO DAILY 12/14/21 03/19/24 glucosamine HCL [Glucosamine HCl] 1 mg PO DAILY 12/14/21 03/19/24 metFORMIN [Glucophage] 500 mg PO BID 12/14/21 03/19/24 Levothyroxine Sodium 50 mcg PO UD 08/17/22 03/19/24 [Levothyroxine] Rosuvastatin Calcium [Crestor] 20 mg PO UD 08/17/22 03/19/24 Fedratinib Dihydrochloride 400 mg PO DAILY 08/19/22 03/19/24 [Inrebic] Hydroxyurea [Hydrea] 2,000 mg PO DAILY #120 cap 10/04/23 03/19/24 Tramadol HCl 50 mg PO DAILY 10/04/23 03/19/24 predniSONE [Prednisone] 10 mg PO DAILY 03/19/24 03/19/24 - Allergies Allergies/Adverse Reactions: Allergies Allergy/AdvReac Type Severity Reaction Status Date / Time No Known Drug Allergies Allergy Verified 03/19/24 03:22 - Social History Does the pt smoke?: No Smoking Status: Never smoker Does the pt drink ETOH?: Yes Does the pt have substance abuse?: No - Immunizations Immunizations are current?: Yes PD ED PE NORMAL - Vitals Vital signs reviewed: Yes - General General: Alert and oriented X 3, No acute distress, Well developed/nourished - HEENT HEENT: Other (tacky mucous membranes) - Neck Neck: Supple, no meningeal sign - Respiratory Respiratory: No respiratory distress, Clear bilaterally - Abdomen Abdomen: Normal bowel sounds, Soft, Non tender, Non distended - Derm Derm: Normal color PD ED PE EXPANDED - Cardiac Cardiac: Tachy, Irregularly irregular Results - Vitals Vitals: Oxygen O2 Source Nasal cannula - EKG (time done) No standard instances EKG releavant findings:: EKG personally interpreted by author of this note. Relevant findings are: Rate: Rate (enter#) (122) Rhythm: Atrial flutter [place]: LAD Intervals: QRS normal QRS: Normal Ischemia: Normal ST segments Computer interpretation: Disagree with computer (no ST elevations) - Labs Labs: Laboratory Tests 03/19/24 03/19/24 03/19/24 03:20 03:20 03:20 WBC 0.8 L* RBC 2.02 L Hgb 8.9 L Hct 26.4 L MCV 130.7 H MCH 44.1 H MCHC 33.7 RDW 15.6 H Plt Count 464 H MPV 10.0 Neut # (Auto) BARN AND PROPERTY MANAGER Lymph # (Auto) Not Reportable [place] # (Auto) Not Reportable Eos # (Auto) Not Reportable Baso # (Auto) Not Reportable Absolute Nucleated RBC Not Reportable Total Counted 25 Band Neuts % (Manual) 0 Abnorm Lymph % (Manual) 0 Nucleated RBC % Not Reportable Neutrophils # (Manual) 0.4 L* Lymphocytes # (Manual) 0.3 L Monocytes # (Manual) 0.1 Eosinophils # (Manual) 0.0 Basophils # (Manual) 0.0 Differential Comment MANUAL DIFFERENTIAL Platelet Estimate INCREASED (>450,000) RBC Morph Micro Appear 1+ OVALOCYTES PT 43.4 H INR 4.4 H Sodium 139 Potassium 3.7 Chloride 109 Carbon Dioxide 22 Anion Gap 8.0 BUN 44 H Creatinine 1.5 H Estimated GFR (MDRD) 46 L Glucose 104 Calcium 9.5 Total Bilirubin 0.7 AST 17 ALT 22 Alkaline Phosphatase 116 Troponin I High Sens 29.1 H* Total Protein 6.0 L Albumin 4.1 Globulin 1.9 L Albumin/Globulin Ratio 2.2 Lipase 20 Nasal Adenovirus (PCR) Nasal B. parapertussis DNA (PCR) Nasal Coronavir 229E PCR Nasal Coronavir HKU1 PCR Nasal Coronavir NL63 PCR Nasal Coronavir OC43 PCR Nasal Enterovir/Rhinovir PCR Nasal Influenza B PCR Nasal Influenza A PCR Nasal Parainfluen 1 PCR Nasal Parainfluen 2 PCR Nasal Parainfluen 3 PCR Nasal Parainfluen 4 PCR Nasal RSV (PCR) Nasal B.pertussis DNA PCR Nasal C.pneumoniae (PCR) Edwardo Human Metapneumo PCR Nasal M.pneumoniae (PCR) Nasal SARS-CoV-2 (PCR) 03/19/24 03/19/24 03:20 06:32 WBC RBC Hgb Hct MCV MCH MCHC RDW Plt Count MPV Neut # (Auto) Lymph # (Auto) [place] # (Auto) Eos # (Auto) Baso # (Auto) Absolute Nucleated RBC Total Counted Band Neuts % (Manual) Abnorm Lymph % (Manual) Nucleated RBC % Neutrophils # (Manual) Lymphocytes # (Manual) Monocytes # (Manual) Eosinophils # (Manual) Basophils # (Manual) Differential Comment Platelet Estimate RBC Morph Micro Appear PT INR Sodium Potassium Chloride Carbon Dioxide Anion Gap BUN Creatinine Estimated GFR (MDRD) Glucose Calcium Total Bilirubin AST ALT Alkaline Phosphatase Troponin I High Sens 36.4 H* Total Protein Albumin Globulin Albumin/Globulin Ratio Lipase Nasal Adenovirus (PCR) NOT DETECTED Nasal B. parapertussis DNA (PCR) NOT DETECTED Nasal Coronavir 229E PCR NOT DETECTED Nasal Coronavir HKU1 PCR NOT DETECTED Nasal Coronavir NL63 PCR NOT DETECTED Nasal Coronavir OC43 PCR NOT DETECTED Nasal Enterovir/Rhinovir PCR NOT DETECTED Nasal Influenza B PCR NOT DETECTED Nasal Influenza A PCR NOT DETECTED Nasal Parainfluen 1 PCR NOT DETECTED Nasal Parainfluen 2 PCR NOT DETECTED Nasal Parainfluen 3 PCR NOT DETECTED Nasal Parainfluen 4 PCR NOT DETECTED Nasal RSV (PCR) NOT DETECTED Nasal B.pertussis DNA PCR NOT DETECTED Nasal C.pneumoniae (PCR) NOT DETECTED Edwardo Human Metapneumo PCR NOT DETECTED Nasal M.pneumoniae (PCR) NOT DETECTED Nasal SARS-CoV-2 (PCR) NOT DETECTED - Rads (name of study) cxr Relevant Findings:: Prelim report reviewed, See rad report PD Medical Decision Making - ED course Complexity details: reviewed results, re-evaluated patient, considered differential, d/w patient, d/w family ED course: CBC abnormalities including wbc 0.8, hgb 8.9, platelets 464, 0.4 ANC. His INR is 4.4. Elevated BUN (44) , creatinine (1.5). Mildly elevated troponin (29.1). Respiratory PCR panel negative. Although hypotensive in the field/en route, his blood pressures were within lower end of normal range in ED. He is given 2 liters NS IV and, once his blood pressures were consistently within normal limits, he is given 5mg IV lopressor for rate control. These interventions did improve his heart rate to low 100s (bpm). Patient has had mild leukopenia on several recent blood draws over the past few months, but tonight's result of WBC 0.8 is the lowest in [facility] records. Also concerning along these lines is his ANC of 0.4. Regarding the thrombocytosis, I reviewed a note from his district court administrator/oncologist from 2 months ago indicates that the target for his platelets is below 600 (and tonight's result is 464). As my shift was ending, I was able to get in touch with the hem/onc nurse practitioner for patient's hem/onc group; I discussed this case with her, with main question of whether the low WBC/ANC are of immediate concern. She says these results do not require further emergent testing nor treatment, but she will discuss this with one of her colleagues and call back to ED regarding upshot of this conversation. Having not heard back regarding said conversation by the end my shift, care of this patient is turned over to the oncoming ED physician (Dr. Fay) at the end of my shift. Departure - Departure Disposition: 01 Home, Self Care Clinical Impression: Dehydration Diarrhea Qualifiers: Diarrhea type: unspecified type Qualified Code(s): R19.7 - Diarrhea, uns pecified Instructions: ED Dehydration, ED Diet Vomiting Diarrhea Follow-Up: Jacky Brito MD [Primary Care Provider] - Comments: Bill, today it looks like you were profoundly dehydrated from the diarrhea you had yesterday evening and we have provided fluid to correct this. Your oncologist has recommended you stop your hydroxy urea and your fedratinib. They will call you with an appointment to be seen in the coming week. Hydrate further today. Do not take your blood pressure medications today and check your blood pressure in the morning tomorrow before taking them. If it is low contact Dr. Brito and do not take them. Forms: PCP List Discharge Date/Time: 03/19/24 10:48
[2024-03-19] MEDS: METOPROLOL 5 MG/5 ML VIAL IVP STA (05:49)
--- NOTE | 2024-03-19 08:30 | XRAY Report ---
PROCEDURE: Chest 1V INDICATIONS: chest pain TECHNIQUE: One view of the chest was acquired. COMPARISON: 04/03/2022. FINDINGS: Surgical changes and devices: Remote midline sternotomy.. Lungs and pleura: No pleural effusions or pneumothorax. Lungs are clear. Elevation of right hemidia phragm, as before. Mediastinum: Tortuous, unfolded aorta. Mild cardiomegaly. Bones and chest wall: No suspicious bony lesions. Overlying soft tissues appear unremarkable. IMPRESSION: No acute pulmonary process noted. Findings are concordant with preliminary interpretation provided by [facility]. Reviewed by: Bay Jain MD on 03/19/2024 8:28 AM PDT Approved by: Bay Jain MD on 03/19/2024 8:28 AM PDT Station ID: [id number]
[2024-03-19 10:35] VITALS: BP 143/109; O2SAT 99
[2024-03-21 20:28] LABS: PATHOLOGIST SLIDE COMMENTS SEE SEPARATE REPORT
--- NOTE | 2024-04-05 10:52 | ED Physician Documentation ---
ED Addendum - Addendum Addendum: 04/05/24 10:50 73-year-old Bill matthew was left to my care after receiving fluids overnight for severe diarrhea. He is undergoing care through heme-onc and he was left in my care regarding any further requirements for workup or treatment and the recommendation was to discontinue 2 of his medications which are listed in his discharge instructions. Departure - Departure Disposition: 01 Home, Self Care Clinical Impression: Dehydration Diarrhea Qualifiers: Diarrhea type: unspecified type Qualified Code(s): R19.7 - Diarrhea, unspecified Instructions: ED Dehydration, ED Diet Vomiting Diarrhea Follow-Up: Jacky Brito MD [Primary Care Provider] - Comments: Bill, today it looks like you were profoundly dehydrated from the diarrhea you had yesterday evening and we have provided fluid to correct this. Your oncologist has recommended you stop your hydroxy urea and your fedratinib. They will call you with an appointment to be seen in the coming week. Hydrate further today. Do not take your blood pressure medications today and check your blood pressure in the morning tomorrow before taking them. If it is low contact Dr. Brito and do not take them. Forms: PCP List Discharge Date/Time: 03/19/24 10:48
== END 2024-03-19 10:48 | disposition home or self-care (01) ==
LOC: EDUNIT# → ED 02:59
DX: E86.0 Dehydration (principal); R19.7 Diarrhea, unspecified; I10 Essential (primary) hypertension; D72.819 Decreased white blood cell count, unspecified; D64.9 Anemia, unspecified
CPT/HCPCS: 36415; 80053; 83690; 84484; 85025; 85610; 87507; 87633; 93005; 96361; 96374; 99284

== ENCOUNTER 2024-03-26 14:52 | Outpatient (CLI) | payer MEDICARE, OTHER | END 2024-03-26 14:53 | disposition home or self-care (01) | LOC: LAB 14:52 | PROVIDERS: ATTEND Family Medicine | DX: I48.20 Chronic atrial fibrillation, unspecified (principal) | CPT/HCPCS: 36416; 85610 ==

== ENCOUNTER 2024-03-28 10:12 | Outpatient (CLI) | payer MEDICARE, OTHER | END 2024-03-28 10:13 | disposition home or self-care (01) | LOC: LAB 10:12 | PROVIDERS: ATTEND Family Medicine | DX: I48.20 Chronic atrial fibrillation, unspecified (principal) | CPT/HCPCS: 36416; 85610 ==

== ENCOUNTER 2024-04-03 11:54 | Outpatient (CLI) | payer MEDICARE, OTHER | END 2024-04-03 11:55 | disposition home or self-care (01) | LOC: LAB 11:54 | PROVIDERS: ATTEND Family Medicine | DX: I48.20 Chronic atrial fibrillation, unspecified (principal) | CPT/HCPCS: 36416; 85610 ==

== ENCOUNTER 2024-04-12 08:48 | Outpatient (CLI) | payer MEDICARE, OTHER | END 2024-04-12 08:49 | disposition home or self-care (01) | LOC: LAB.S 08:48 | PROVIDERS: ATTEND Family Medicine | DX: I48.20 Chronic atrial fibrillation, unspecified (principal) | CPT/HCPCS: 36416; 85610 ==

== ENCOUNTER 2024-04-24 06:47 | Outpatient (CLI) | payer MEDICARE, OTHER | END 2024-04-24 23:59 | disposition critical access hospital (66) | LOC: EMS 06:47 | DX: K59.00 Constipation, unspecified (principal); E86.0 Dehydration; R10.31 Right lower quadrant pain; R10.32 Left lower quadrant pain; R00.0 Tachycardia, unspecified; R19.34 Left lower quadrant abdominal rigidity; R19.33 Right lower quadrant abdominal rigidity | CPT/HCPCS: A0425; A0427 ==

== ENCOUNTER 2024-04-24 07:19 | Inpatient (IN) | payer MEDICARE, OTHER ==
--- NOTE | 2024-04-24 07:39 | ED Physician Documentation ---
History of Present Illness - Stated complaint Stated Complaint: ABD PX - History obtained from History obtained from: Patient, EMS - Additonal information Additional information: The patient is brought to the emergency department by EMS for chief complaint of lower abdominal pain that started overnight. He states that it seems to be a little more on the right than the left but is also located in the suprapubic region. He denies any dysuria. No fevers or chills. No nausea or vomiting. No diarrhea. He states that actually, he has been quite constipated lately and is just been putting out tiny bits of hard stool here and there. He does take tramadol chronically. The patient states he has a hematologic disorder but is not sure of the exact name of it. He sees a heme-onc specialist for this. No other complaints at this time. PD PAST MEDICAL HISTORY - Past Medical History Cardiovascular: Atrial fibrillation, Other Respiratory: None Neuro: None Endocrine/Autoimmune: None GI: None : None HEENT: Chronic vision loss Psych: None Musculoskeletal: None Derm: None - Past Surgical History Past Surgical History: Yes General: Other Cardiovascular: Other - Present Medications Home Medications: Ambulatory Orders Medication Instructions Recorded Confirmed Lisinopril [Zestril] 20 mg PO DAILY 12/14/21 04/24/24 Multivit-Min/Iron/Folic Acid/K 1 tab PO DAILY 12/14/21 03/26/24 [Multi-Day Plus Minerals Tablet] [place]-3S/Dha/Epa/Fish Oil [Fish 2 mg PO DAILY 12/14/21 03/26/24 Oil 1,200 mg Softgel] Warfarin [Coumadin] 10 mg PO UD 12/14/21 04/24/24 glucosamine HCL [Glucosamine HCl] 1 mg PO DAILY 12/14/21 03/26/24 Levothyroxine Sodium 50 mcg PO DAILY 08/17/22 04/24/24 [Levothyroxine] Rosuvastatin Calcium [Crestor] 20 mg PO DAILY 08/17/22 04/24/24 Fedratinib Dihydrochloride 400 mg PO DAILY 08/19/22 04/24/24 [Inrebic] Tramadol HCl 50 mg PO TID PRN 10/04/23 04/24/24 predniSONE [Prednisone] 10 mg PO UD 03/19/24 04/24/24 Hydroxyurea [Hydrea] 2,000 mg PO DAILY 04/24/24 04/24/24 Metformin HCl [Metformin ER 500 mg PO DAILY 04/24/24 04/24/24 Osmotic] atenoloL [Tenormin] 25 mg PO DAILY 04/24/24 04/24/24 - Allergies Allergies/Adverse Reactions: Allergies Allergy/AdvReac Type Severity Reaction Status Date / Time No Known Drug Allergies Allergy Verified 04/24/24 07:41 - Social History Does the pt smoke?: No Smoking Status: Never smoker Does the pt drink ETOH?: Yes Does the pt have substance abuse?: No - Immunizations Immunizations are current?: Yes PD ED PE NORMAL - Vitals Vital signs reviewed: Yes - General General: No acute distress, Well developed/nourished, Other (Alert, grossly intact) - HEENT HEENT: Atraumatic, EOMI, Moist mucous membranes - Neck Neck: Supple, no meningeal sign - Cardiac Cardiac: RRR, No murmur - Respiratory Respiratory: No respiratory distress, Clear bilaterally - Abdomen Abdomen: Soft, Non distended, Other (Mild tenderness bilateral lower quadrants, no rebound or guarding.) - Derm Derm: Normal color, Warm and dry, No rash - Extremities Extremities: No deformity, Other (1+ pitting edema bilaterally) - Neuro Neuro: Other (Alert, grossly intact) - Psych Psych: Normal mood, Normal affect Results - Vitals Vitals: Vital Signs - 24 hr 04/24/24 04/24/24 04/24/24 07:32 08:57 09:30 Temperature 36.5 C Heart Rate 111 H 164 H 165 H Respiratory 22 45 H Rate Blood Pressure 110/68 154/88 H 147/83 H O2 Saturation 72 L 85 L If not protocol 4 4 : Oxygen Flow, liters/minute 04/24/24 04/24/24 04/24/24 09:35 09:40 09:45 Temperature Heart Rate 132 H 123 H 152 H Respiratory Rate Blood Pressure 135/88 H 128/82 H 150/85 H O2 Saturation If not protocol 4 4 4 : Oxygen Flow, liters/minute 04/24/24 04/24/24 04/24/24 10:00 10:15 11:30 Temperature Heart Rate 152 H 161 H 153 H Respiratory 38 H Rate Blood Pressure 121/87 H 95/67 O2 Saturation 81 L If not protocol 4 4 : Oxygen Flow, liters/minute 04/24/24 04/24/24 04/24/24 12:00 12:33 12:35 Temperature Heart Rate 145 H 137 H 139 H Respiratory 41 H Rate Blood Pressure 87/55 L 94/61 94/61 O2 Saturation 81 L 86 L 85 L If not protocol 4 100 100 : Oxygen Flow, liters/minute 04/24/24 04/24/24 04/24/24 13:30 14:05 14:19 Temperature Heart Rate 142 H 123 H 145 H Respiratory 20 23 20 Rate Blood Pressure 101/68 80/64 L 92/58 L O2 Saturation 100 84 L 100 If not protocol : Oxygen Flow, liters/minute 04/24/24 04/24/24 14:27 14:34 Temperature Heart Rate 145 H 139 H Respiratory 28 H Rate Blood Pressure 81/36 L O2 Saturation 78 L If not protocol : Oxygen Flow, liters/minute Oxygen O2 Source Mechanical ventilator Oxygen Flow Rate 4 - EKG (time done) 0756 EKG releavant findings:: EKG personally interpreted by author of this note. Relevant findings are: Rate: Rate (enter#) (143) Rhythm: Atrial fibrillation [place]: Normal QRS: Normal Ischemia: Non specific changes Compare to prior EKG: Old EKG unavailable Computer interpretation: Agree with computer 0916 EKG releavant findings:: EKG personally interpreted by author of this note. Relevant findings are: Rate: Rate (enter#) (161) Rhythm: Atrial fibrillation [place]: Normal QRS: Normal Ischemia: Non specific changes Computer interpretation: Disagree with computer (No STEMI) - Labs Labs: Laboratory Tests 04/24/24 04/24/24 04/24/24 07:36 07:45 07:45 WBC 1.0 L* RBC 2.08 L Hgb 9.1 L Hct 28.5 L MCV 137.0 H MCH 43.8 H MCHC 31.9 L RDW 15.5 H Plt Count 565 H MPV 9.7 Neut # (Auto) Not Reportable Lymph # (Auto) Not Reportable Alexander # (Auto) Not Reportable Eos # (Auto) Not Reportable Baso # (Auto) Not Reportable Absolute Nucleated RBC Not Reportable Total Counted 100 Band Neuts % (Manual) 4 Abnorm Lymph % (Manual) 0 Nucleated RBC % Not Reportable Neutrophils # (Manual) 0.3 L* Lymphocytes # (Manual) 0.7 L Monocytes # (Manual) 0.0 Eosinophils # (Manual) 0.0 Basophils # (Manual) 0.0 Differential Comment MANUAL DIFFERENTIAL Platelet Estimate INCREASED (>450,000) Platelet Morphology NORMAL APPEARANCE RBC Morph Micro Appear 1+ ANISOCYTOSIS PT INR APTT D-Dimer Bld Gas Analysis Time Sample Site ABG pH ABG pCO2 ABG pO2 ABG HCO3 ABG Total CO2 ABG O2 Saturation ABG Oximetry Spot Check ABG Base Excess Jeremy Test Room Air O2 Delivery Device O2 Liters/Min Sodium 138 Potassium 3.7 Chloride 108 Carbon Dioxide 23 Anion Gap 7.0 BUN 29 H Creatinine 1.0 Estimated GFR (MDRD) 73 L Glucose 132 H Lactic Acid Calcium 9.0 Total Bilirubin 0.6 AST 16 ALT 22 Alkaline Phosphatase 107 Troponin I High Sens B-Natriuretic Peptide Total Protein 5.5 L Albumin 3.9 Globulin 1.6 L Albumin/Globulin Ratio 2.4 H Lipase 19 Urine Color YELLOW Urine Clarity CLEAR Urine pH 5.5 Ur Specific [place] 1.020 Urine Protein NEGATIVE Urine Glucose (UA) NEGATIVE Urine Ketones NEGATIVE Urine Occult Blood NEGATIVE Urine Nitrite NEGATIVE Urine Bilirubin NEGATIVE Urine Urobilinogen 0.2 (NORMAL) Ur Leukocyte Esterase NEGATIVE Ur Microscopic Review NOT INDICATED Urine Culture Comments NOT INDICATED 04/24/24 04/24/24 04/24/24 07:45 07:45 07:45 WBC RBC Hgb Hct MCV MCH MCHC RDW Plt Count MPV Neut # (Auto) Lymph # (Auto) Alexander # (Auto) Eos # (Auto) Baso # (Auto) Absolute Nucleated RBC Total Counted Band Neuts % (Manual) Abnorm Lymph % (Manual) Nucleated RBC % Neutrophils # (Manual) Lymphocytes # (Manual) Monocytes # (Manual) Eosinophils # (Manual) Basophils # (Manual) Differential Comment Platelet Estimate Platelet Morphology RBC Morph Micro Appear PT 25.1 H INR 2.4 H APTT D-Dimer 366.5 H Bld Gas Analysis Time Sample Site ABG pH ABG pCO2 ABG pO2 ABG HCO3 ABG Total CO2 ABG O2 Saturation ABG Oximetry Spot Check ABG Base Excess Jeremy Test Room Air O2 Delivery Device O2 Liters/Min Sodium Potassium Chloride Carbon Dioxide Anion Gap BUN Creatinine Estimated GFR (MDRD) Glucose Lactic Acid Calcium Total Bilirubin AST ALT Alkaline Phosphatase Troponin I High Sens B-Natriuretic Peptide 58 Total Protein Albumin Globulin Albumin/Globulin Ratio Lipase Urine Color Urine Clarity Urine pH Ur Specific [place] Urine Protein Urine Glucose (UA) Urine Ketones Urine Occult Blood Urine Nitrite Urine Bilirubin Urine Urobilinogen Ur Leukocyte Esterase Ur Microscopic Review Urine Culture Comments 04/24/24 04/24/24 04/24/24 07:45 07:52 10:00 WBC RBC Hgb Hct MCV MCH MCHC RDW Plt Count MPV Neut # (Auto) Lymph # (Auto) Alexander # (Auto) Eos # (Auto) Baso # (Auto) Absolute Nucleated RBC Total Counted Band Neuts % (Manual) Abnorm Lymph % (Manual) Nucleated RBC % Neutrophils # (Manual) Lymphocytes # (Manual) Monocytes # (Manual) Eosinophils # (Manual) Basophils # (Manual) Differential Comment Platelet Estimate Platelet Morphology RBC Morph Micro Appear PT INR APTT D-Dimer Bld Gas Analysis Time 0800 1010 Sample Site LEFT RADIAL RIGHT RADIAL ABG pH 7.38 7.29 L ABG pCO2 37 45 ABG pO2 44 L 57 L ABG HCO3 21.6 L 21.6 L ABG Total CO2 23.0 23.0 ABG O2 Saturation 79 L* 86 L* ABG Oximetry Spot Check 72 94 ABG Base Excess -4.0 L -5.0 L Jeremy Test POSITIVE POSITIVE Room Air YES O2 Delivery Device NASAL CANNULA O2 Liters/Min 4.00 Sodium Potassium Chloride Carbon Dioxide Anion Gap BUN Creatinine Estimated GFR (MDRD) Glucose Lactic Acid Calcium Total Bilirubin AST ALT Alkaline Phosphatase Troponin I High Sens 5.7 B-Natriuretic Peptide Total Protein Albumin Globulin Albumin/Globulin Ratio Lipase Urine Color Urine Clarity Urine pH Ur Specific [place] Urine Protein Urine Glucose (UA) Urine Ketones Urine Occult Blood Urine Nitrite Urine Bilirubin Urine Urobilinogen Ur Leukocyte Esterase Ur Microscopic Review Urine Culture Comments 04/24/24 04/24/24 13:45 13:45 WBC RBC Hgb Hct MCV MCH MCHC RDW Plt Count MPV Neut # (Auto) Lymph # (Auto) Alexander # (Auto) Eos # (Auto) Baso # (Auto) Absolute Nucleated RBC Total Counted Band Neuts % (Manual) Abnorm Lymph % (Manual) Nucleated RBC % Neutrophils # (Manual) Lymphocytes # (Manual) Monocytes # (Manual) Eosinophils # (Manual) Basophils # (Manual) Differential Comment Platelet Estimate Platelet Morphology RBC Morph Micro Appear PT 18.1 H INR 1.7 H APTT 23.9 L D-Dimer Bld Gas Analysis Time Sample Site ABG pH ABG pCO2 ABG pO2 ABG HCO3 ABG Total CO2 ABG O2 Saturation ABG Oximetry Spot Check ABG Base Excess Jeremy Test Room Air O2 Delivery Device O2 Liters/Min Sodium Potassium Chloride Carbon Dioxide Anion Gap BUN Creatinine Estimated GFR (MDRD) Glucose Lactic Acid 2.6 H Calcium Total Bilirubin AST ALT Alkaline Phosphatase Troponin I High Sens B-Natriuretic Peptide Total Protein Albumin Globulin Albumin/Globulin Ratio Lipase Urine Color Urine Clarity Urine pH Ur Specific [place] Urine Protein Urine Glucose (UA) Urine Ketones Urine Occult Blood Urine Nitrite Urine Bilirubin Urine Urobilinogen Ur Leukocyte Esterase Ur Microscopic Review Urine Culture Comments - Rads (name of study) chest XR Relevant Findings:: Final report received, See rad report (low lung volumes, otherwise NAD) chest XR #2 Relevant Findings:: Final report received, See rad report (Interval right subclavian line placement, No pneumothorax) Chest x-ray #3 Relevant Findings:: Final report received, See rad report (ET tube in good placement; NG tube needs repositioning; no pneumothorax. Some pulmonary vascular congestion.) CT abdomen and pelvis with IV contrast Relevant Findings:: Final report received, See rad report (Perforated viscus, either jejunum or sigmoid; mild ascending aortic aneurysm; patchy bibasilar atelectasis; cirrhosis; mild ascites. 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 and there is severe high-grade stenosis of the SMA; likely ischemic bowel loops.) CTA chest Relevant Findings:: Final report received, See rad report (No pulmonary embolis m.) Procedures - Intubation - Major Provider: Emergency physician Medications: Etomidate, Succinylcholine, Vecuronium Blade: Myers Tube: Size-enter number (8.0), Cuffed, Marked at teeth-enter cm (26) Route: Oral Confirmation: Direct visualization Complications: No compications - Central Line - Major Central Line Preparation: Consent Obtained, Sterile prep and drape Central line location: Right Subclavian Central line type: Triple lumen Central line aftercare: Chlorhexidine disc placed, Secured, Placement confirmed, No pneumothorax, No complications, Pt tolerated well PD Medical Decision Making - ED course Complexity details: reviewed old records, reviewed results, re-evaluated patient, considered differential, d/w patient ED course: The patient was treated symptomatically with IV fluids and a dose of Dilaudid. He was mildly tachycardic and her oxygen saturation monitor was not reading any higher than 72% with a good wave form. However, oxygen did not change this and the patient did not have any respiratory complaints. He had no underlying respiratory disorders other than obstructive sleep apnea for which he uses a CPAP machine at night, and he had not had any respiratory symptoms. His lungs were clear. I ordered an ABG to sort out what was going on with his hypoxic reading on the monitor. Basic labs otherwise, as well as EKG, chest x-ray, and CT of the abdomen and pelvis, were all ordered as well. The patient was found to have a white blood cell count of 1.0, which stated was not really terribly unusual for him. His hemoglobin was 9.1 and platelets 565. His neutrophil count was 0.3. His D-dimer was 366 with INR of 2.4 on Coumadin. His initial blood gas showed a pH of 7.38, sats of 79%, and PaO2 44. His kidney function looked fairly good with a GFR of 73 and creatinine of 1.0. Lactate level was elevated at 2.6. Urinalysis negative. Initial EKG showed A-fib with RVR with a rate of 140s, that this did not reflect the average that the patient was demonstrating at that time, which was more in the 1 teens. The patient was sent for his CT of the abdomen and pelvis and radiologist did call to report that the patient had a perforated viscus with some free air. There is also question of ischemic bowel. I did speak with the surgeon on-call, Dr. Blackwell. She agreed to come and see the patient, but given his underlying issues, requested that hospitalist be consulted as well. I did speak with the hospitalist who also agreed to evaluate the patient. In the meantime, I started Zosyn and given that the ABG had shown an O2 sat in the 70s, which the patient's reported was about 10% below the patient's known baseline of upper 80s to low 90s, I did order a CT of the chest, which the surgeon had also requested. The patient had no respiratory complaints whatsoever and no chest complaints, but due to his hypoxia, the hospitalist service did also order BNP and troponin. Both of these were negative. The CT scan of the chest showed no PE, and probable atelectasis. The patient had developed significant rapid ventricular response and now had a heart rate in the 160s. Repeat EKG was performed and showed "acute [place]" for the computer reading. However, the troponin has been negative and I did not feel that the EKG morphology supported acute [place]. He was given a dose of diltiazem which did seem to help and brought his heart rate down into the 120s, but his blood pressure also dropped with this. He was in a lot of pain but we could not adequately treat this with the blood pressure being low. The more important priority at this point was to get the heart rate down. The patient was already receiving antibiotics and needed more IVs. He did not have good peripheral vasculature and with the gravity of his condition, I did go ahead and place a central line. He was given 1 mg of Dilaudid while I was doing this and this did drop his blood pressure into the 90s systolic, though he did recover fairly quickly. The patient was then given amiodarone for his A-fib with RVR which did bring his heart rate down to around 140. He had at this point received 4 full liters of fluid was on his fifth. He was splinting quite a bit with respirations and breathing shallowly and given that his oxygen saturation was still ranging between 80 and 90 even on 4 L of oxygen per nasal cannula, and was now starting to drop slowly, I decided to intubate him. The patient was agreeable to this, as was his . He was able to be started on propofol because his blood pressures for now were doing fairly well. He was sedated well with this. After intubation, he was placed on 100% FiO2 and PEEP of 5 and O2 sat did come up to 90%. However, he did be began to trend down, oxygen saturation martinez. Art line was placed by anesthesia. The patient was seen multiple times by hospitalist service and general surgeon, who are aware of the gravity of the patient's condition. The surgery team was uncomfortable doing the surgery with the patient's INR being as high as it was, so they did order Kcentra and then wanted repeat coags done. The patient's INR had come down to 1.7. The patient was initially handling the propofol well, but started to trend down, blood pressure martinez. We tried decreasing his propofol, but despite being on a 6 L of IV fluid and bringing the propofol dosing down, he continued to become more hypotensive. I started Levophed and had the nurse aggressively titrate this up. The patient was able to remain sedated to certain extent, though he was becoming somewhat fidgety. I was concerned that this patient was worsening. I spoke with Dr. Alexandra Around 1430, and she stated that she would take him to the OR after she finished her colonoscopies, which would be around 1600. I have had multiple discussions with the patient's about what we are doing and why, and the various medical issues we are trying to balance. At this point we are awaiting surgery team and anesthesia to feel the patient is stable enough to go to operating room and further schedule to allow such. They have already spoken with the , as has the hospitalist team, regarding the very critical nature of the patient's condition. At this point, the patient continues to await transfer to the operating room. He is signed out to Dr. Wilson at change of shift, pending transfer to OR. - Critical Care Time(min): 120 Comments: Critical care time was necessary, secondary to high probability of imminent and life-threatening decline, due to 1. Perforated viscus with sepsis, 2. Respiratory failure, 3. Atrial fibrillation with rapid ventricular response. Time Includes: Direct patient care, Review records, Reassess patient, Document care, Coordinate care, Medical consult, Family consult for tx dec, See progress note Data interpretation: Labs, Pulse ox, ABG, CXR, Prior EKG, Cardiac output, See progress note Procedures included in critical care time: Ventilator mgmt, See progress note Procedures excluded from critical care time: Central IV, Intubation Departure - Departure Disposition: 66 [facility] DC/Xfer Clinical Impression: Perforated abdominal viscus, Atrial fibrillation with rapid ventricular response Respiratory failure Qualifiers: Chronicity: acute on chronic Respiratory failure complication: hypoxia Qualified Code(s): J96.21 - Acute and chronic respiratory failure with hypoxia Condition: Critical
[2024-04-24] MEDS ORDERED: iohexoL-300 100 ML VIAL ONE ×2 (07:41→09:38)
[2024-04-24] MEDS: HYDROmorphone 1 MG/ML CARPUJECT IVP STA ×2 (07:49→11:27)
[2024-04-24] MEDS: MAGNESIUM CITRATE 296 ML BOTTLE PO STA (07:50)
[2024-04-24] MEDS: SODIUM CHLORIDE 0.9% 1,000 ML IV STA ×5 (07:51→13:56)
[2024-04-24 07:55] LABS: BILIRUBIN,URINE NEGATIVE (NEGATIVE); GLUCOSE, URINE (UA) NEGATIVE (NEGATIVE); KETONES,URINE (UA) NEGATIVE (NEGATIVE); LEUKOCYTE ESTERASE, URINE NEGATIVE (NEGATIVE); NITRITE,URINE NEGATIVE (NEGATIVE); OCCULT BLOOD,URINE NEGATIVE (NEGATIVE); PH,URINE 5.5 PH (5.0-7.5); PROTEIN,URINE NEGATIVE (NEGATIVE); UROBILINOGEN,URINE 0.2 (NORMAL) E.U./dL (NORMAL)
[2024-04-24 07:55] LABS: BASOPHILS % (AUTO) 1.9 %; EOSINOPHILS % (AUTO) 1.9 %; HCT - HEMATOCRIT 28.5 % (42.0-52.0); HGB - HEMOGLOBIN 9.1 g/dL (14.0-18.0); LYMPHOCYTES % (AUTO) 61.5 %; MEAN CORPUSCULAR HEMOGLOBIN 43.8 pg (27.0-31.0); MEAN CORPUSCULAR HGB CONC 31.9 g/dL (32.0-36.0); MEAN PLATELET VOLUME 9.7 fL (7.4-11.4); MONOCYTES % (AUTO) 3.8 %; NEUTROPHILS % (AUTO) 30.9 %; PLT - PLATELET COUNT 565 10^3/uL (130-450); RED BLOOD COUNT 2.08 10^6/uL (4.70-6.10); RED CELL DISTRIBUTION WIDTH 15.5 % (12.0-15.0)
[2024-04-24 07:57] LABS: CLARITY,URINE CLEAR (CLEAR)
[2024-04-24 08:05] LABS: ALBUMIN 3.9 g/dL (3.2-5.5); ALBUMIN/GLOBULIN RATIO 2.4 (1.0-2.2); BILIRUBIN,TOTAL 0.6 mg/dL (0.2-1.0); POTASSIUM 3.7 mmol/L (3.5-4.5); TOTAL PROTEIN 5.5 g/dL (6.4-8.9)
[2024-04-24 08:06] LABS: ABG HCO3 21.6 mmol/L (22.0-26.0); ABG PCO2 37 mmHg (34-45); ABG PH 7.38 (7.35-7.45); ABG PO2 44 mmHg (80-100)
[2024-04-24 08:07] LABS: ABG SATURATION PULSE OXIMETRY% 72 %; ALLEN TEST POSITIVE
[2024-04-24 08:09] LABS: ABG OXYGEN SATURATION 79 % (94-98)
[2024-04-24 08:12] LABS: ABNORMAL LYMPHS % (MANUAL) 0 %
[2024-04-24 08:26] LABS: BAND NEUTROPHILS % (MANUAL) 4 %; LYMPHOCYTES # (MANUAL) 0.7 10^3/uL (1.5-3.5); LYMPHOCYTES % (MANUAL) 65 %; NEUTROPHILS # (MANUAL) 0.3 10^3/uL (1.5-6.6)
[2024-04-24 08:27] LABS: DIFFERENTIAL COMMENT MANUAL DIFFERENTIAL; PLATELET ESTIMATE, MANUAL INCREASED (>450,000) (NORMAL); PLATELET MORPHOLOGY NORMAL APPEARANCE (NORMAL)
--- NOTE | 2024-04-24 08:30 | XRAY Report ---
PROCEDURE: Chest 1V INDICATIONS: hypoxia TECHNIQUE: One view of the chest was acquired. COMPARISON: 03/19/2024. FINDINGS: Surgical changes and devices: Midline sternotomy. Lungs and pleura: Submaximal inspiration. Elevated right hemidiaphragm, as before. Vascular crowding . Patchy bibasilar atelectasis. Mediastinum: Mediastinal contours appear normal. Unchanged mild cardiomegaly. Bones and chest wall: No suspicious bony lesions. Overlying soft tissues appear unremarkable. IMPRESSION: Unchanged mild cardiomegaly. Submaximal inspiration with bibasilar atelectasis. Reviewed by: Bay Jain MD on 04/24/2024 8:29 AM PDT Approved by: Bay Jain MD on 04/24/2024 8:29 AM PDT Station ID: [id number]
[2024-04-24] MEDS: iohexoL-300 100 ML VIAL IVP ONE (08:41)
--- NOTE | 2024-04-24 09:04 | CT Report ---
PROCEDURE: Abdomen/Pelvis W INDICATIONS: low abd pain CONTRAST: IOHEX 300 100ML TECHNIQUE: After the administration of intravenous contrast, a CT scan of the abdomen and pelvis was performed. Images were recorded and evaluated at appropriate window settings. Reformats: coronal and sagittal. F or radiation dose reduction, the following was used: automated exposure control, adjustment of mA and /or kV according to patient size. COMPARISON: None. FINDINGS: Image quality: Diagnostic. Lower chest: Right main pulmonary artery measures 4.3 cm, consistent with pulmonary arterial hyperten joshua. Visualized descending aorta is mildly dilated, measuring 4.1 cm. Mild cardiomegaly. Patchy biba silar atelectasis. Liver: Cirrhosis.. No liver mass.. Gallbladder: No radiopaque stones or wall thickening. Biliary tree: No intrahepatic or extrahepatic dilation, accounting for age. Spleen: Normal size, heterogeneous enhancement, lobulated, with a low density area of uncertain etiol ogy. Cannot exclude focal infarct. Pancreas: No pancreatic ductal dilation. Adrenals: No adrenal nodule. Kidneys and ureters: No hydronephrosis. No renal cystic lesion which requires follow up. No solid mas s. Stomach, bowel and peritoneum: Mild abdominal ascites. Numerous small bowel loops have wall enhanceme nt and mild thickening consistent with small bowel enteritis. There is free air present subjacent to bowel in the right lower quadrant either indicating sigmoid perforation or jejunal perforation. Moder ately large fecal load. Lymph nodes: No central or retroperitoneal adenopathy. Vessels: No infrarenal aortic aneurysm. Patent portal vein. Presumed calcified occlusion of the gloria c. SMA appears to moderate origin stenosis and a severe calcified stenosis distance from the origin. PELVIS Reproductive organs: Unremarkable. Bladder: No abnormal wall thickening, accounting for underdistention. Pelvic lymph nodes: No pelvic adenopathy by size criteria. Bones: No aggressive osseous abnormality. Other: No significant ventral or inguinal hernia. IMPRESSION: 1. Perforated viscus, either jejunum or sigmoid. 2. Pulmonary arterial hypertension, mild ascending aortic aneurysm. 3. Mild cardiomegaly. 4. Patchy bibasilar atelectasis. 5. Cirrhosis. 6. Mild ascites. 7. Small bowel enteritis. Consider infectious versus inflammatory versus ischemic etiologies. 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 It is at a distance from the nely gin. Based on these findings, ischemic bowel loops certainly possible. Above discussed with Lo Schultz MD at the time of dictation on 04/24/2024 at 0856 hours. Reviewed by: Bay Jain MD on 04/24/2024 9:03 AM PDT Approved by: Bay Jain MD on 04/24/2024 9:03 AM PDT Station ID: [id number]
[2024-04-24] MEDS: diltiaZEM INJ 5 MG/ML VIAL IVP STA ×2 (09:28→13:25)
[2024-04-24 09:37] LABS: INR 2.4 (0.8-1.2); PT - PROTHROMBIN TIME 25.1 secs (9.9-12.6)
[2024-04-24] MEDS: PIPERACILLIN/TAZOBACTAM 4.5 GM in SODIUM CHLORIDE 0.9% MINIBAG 100 ML IV STA (10:09)
[2024-04-24 10:14] LABS: ABG HCO3 21.6 mmol/L (22.0-26.0); ABG PCO2 45 mmHg (34-45); ABG PH 7.29 (7.35-7.45); ABG PO2 57 mmHg (80-100)
[2024-04-24 10:15] LABS: ABG SATURATION PULSE OXIMETRY% 94 %; ALLEN TEST POSITIVE
--- NOTE | 2024-04-24 10:15 | CONSULTATION NOTE ---
Referring Provider Name of Referring Provider:: Theresa Alexandra Consult Date: 04/24/24 Chief Complaint - Chief Complaint Chief Complaint: abdominal pain. History of Present Illness - Admitted From Admitted From:: ED - History Obtained From Records Reviewed: last clinic note, Daryl, 03/19. History obtained from: patient and . - History of Present Illness HPI Comment/Other: 73-year-old male who was in his usual state of health until just before he presented to the emergency department this morning. 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 Also has diabetes most recent A1c was 5.7% on metformin as an outpatient. Have been planning for elective hip replacement in the near future. Has lost some weight in preparation for this. This is intentional. Additionally had medical clearance in place for elective hip replacement. Early this morning he got up to go to the bathroom and had sudden onset of abdominal pain it was severe enough that he presented directly to the emergency department. Since he has been here he has been hypoxic with sats from the 70s into the 90s. He has been tachycardic and tachypneic. He has a history of multiple myeloma and neutropenia. He had previously been seeing Dr. Pacheco here at [facility] and will be transitioning over to our new oncologist. He is anticoagulated on Coumadin for both his atrial fibrillation and his history of pulmonary embolus. He also has a history of obstructive sleep apnea and obesity. He is lost weight over the last year or so in preparation for an elective hip replacement. He walks daily with his , using a cane or trekking poles usually about a mile in an hour. He has a good support system with children in the [place] and [place] area. He lives with his Niurka, who is his surrogate decision maker. He expresses a desire for full code and full care. History - Past Medical History Cardiovascular: reports: Atrial fibrillation, Other (atrial myxoma) Respiratory: reports: None Neuro: reports: None Endocrine/Autoimmune: reports: None GI: reports: None : reports: None HEENT: reports: Chronic vision loss Psych: reports: None Musculoskeletal: reports: None Derm: reports: Other (skin cancers- sees derm) MRSA Hx?: No - Past Surgical History General: reports: Other (hernia repair- years ago, emergency surgery) Cardiovascular: reports: Other (sternotomy for myxoma) - Family & Social History Family History: Mother: (heart failure- dad, mom with CVA), Father: Living arrangement: At home Living Situation: With spouse/s.o. - Substance History Use: Uses substance without health or social issues: Alcohol (minimal ) - POLST Patient has POLST: No POLST Status: Full Code (discussed briefly with patient and spouse, would like full code and full care.) Meds/Allgy - Home Medications Home Medications: Ambulatory Orders Medication Instructions Recorded Confirmed Lisinopril [Zestril] 20 mg PO DAILY 12/14/21 04/24/24 Multivit-Min/Iron/Folic Acid/K 1 tab PO DAILY 12/14/21 03/26/24 [Multi-Day Plus Minerals Tablet] [place]-3S/Dha/Epa/Fish Oil [Fish 2 mg PO DAILY 12/14/21 03/26/24 Oil 1,200 mg Softgel] Warfarin [Coumadin] 10 mg PO UD 12/14/21 04/24/24 glucosamine HCL [Glucosamine HCl] 1 mg PO DAILY 12/14/21 03/26/24 Levothyroxine Sodium 50 mcg PO DAILY 08/17/22 04/24/24 [Levothyroxine] Rosuvastatin Calcium [Crestor] 20 mg PO DAILY 08/17/22 04/24/24 Fedratinib Dihydrochloride 400 mg PO DAILY 08/19/22 04/24/24 [Inrebic] Tramadol HCl 50 mg PO TID PRN 10/04/23 04/24/24 predniSONE [Prednisone] 10 mg PO UD 03/19/24 04/24/24 Hydroxyurea [Hydrea] 2,000 mg PO DAILY 04/24/24 04/24/24 Metformin HCl [Metformin ER 500 mg PO DAILY 04/24/24 04/24/24 Osmotic] atenoloL [Tenormin] 25 mg PO DAILY 04/24/24 04/24/24 - Allergies Allergies/Adverse Reactions: Allergies Allergy/AdvReac Type Severity Reaction Status Date / Time No Known Drug Allergies Allergy Verified 04/24/24 07:41 Review of Systems - Constitutional Constitutional: reports: Fatigue, Weakness. denies: Poor appetite - Eyes Eyes: denies: Spots in vision - Ears, Nose & Throat Ears, Nose & Throat: denies: Vertigo - Cardiovascular Cariovascular: reports: Irregular heart rate, Palpitations. denies: Chest pain, Syncope, Orthopnea - Respiratory Respiratory: denies: Cough - Gastrointestinal Gastrointestinal: reports: Abdominal pain, Other (small bowel movement yesterday) - Genitourinary Genitourinary: denies: Dysuria - Musculoskeletal Musculoskeletal: denies: Muscle pain - Integumentary Integumentary: denies: Rash - Neurological Neurological: denies: General weakness, Focal weakness - Psychiatric Psychiatric: denies: Depression - Hematologic/Lymphatic Hematologic/Lymphatic: reports: Anemia (chronic/) - All Other Systems All Other Systems: reports: Reviewed and negative Exam - Vital Signs Reviewed Vital Signs: Yes Vital Signs: Vital Signs x48h Temp Pulse Resp BP Pulse Ox O2 Flow Rate 04/24/24 09:45 152 H 150/85 H 04/24/24 09:40 123 H 128/82 H 04/24/24 09:35 132 H 135/88 H 04/24/24 09:30 165 H 147/83 H 04/24/24 08:57 164 H 45 H 154/88 H 85 L 04/24/24 07:32 36.5 C 111 H 22 110/68 72 L - Physical Exam General Appearance: positive: Alert Eyes Bilateral: positive: Normal inspection ENT: positive: ENT inspection nml Neck: positive: Nml inspection Respiratory: positive: Chest non-tender, Breath sounds nml (diminished at bases bilaterally) Cardiovascular: positive: Irregularly irregular, Tachycardia Peripheral Pulses: positive: 1+ Abdomen: positive: Tenderness, Guarding Skin: positive: Other (diffuse skin scaling. venous stasis skin changes, left> right no active wounds) Extremities: positive: Non-tender Neurologic/Psychiatric: positive: Oriented x3 Conclusion/Plan - Problem List (1) Acute hypoxic respiratory failure Conclusion/Plan: History of DVT with PE. Patient is anticoagulated, current INR is 2.4. D-dimer slightly elevated at 366. CT angiogram is negative for any acute PE. There is pulmonary hypertension. There is pulmonary congestion. Patient is tachypneic. He is tachycardic. He has had about 4 L of crystalloid infused today. He is acutely hypoxic. He is without respiratory complaints today. He has not had any recent cough. he has not had any shortness of breath. he has not had any paroxysmal nocturnal dyspnea. He does not actually recognize that he is currently short of breath. He is in severe abdominal pain. He is unable to take a deep breath secondary to his abdominal pain. For now we will support his respiratory function.He is not maintaining his oxygen saturations in will need to be intubated. This is likely going to happen very soon in the emergency department. He is becoming more acidotic. I believe this is a metabolic acidosis related to his bowel perforation, but I believe he is retaining CO2 secondary to his shallow respirations. This is a mixed respiratory and metabolic acidosis. Laboratory Tests 04/24/24 04/24/24 07:52 10:00 ABG pH 7.38 7.29 L ABG pCO2 37 45 ABG pO2 44 L 57 L ABG HCO3 21.6 L 21.6 L ABG Total CO2 23.0 23.0 ABG O2 Saturation 79 L* 86 L* ABG Oximetry Spot Check 72 94 (2) Atrial fibrillation with rapid ventricular response Conclusion/Plan: He has a long history of atrial fibrillation. In response to his acute bowel perforation he is in rapid ventricular response. He has responded somewhat to Cardizem without any significant hypotension. This currently been managed by the emergency department. He has been placed on a Cardizem drip,I was just at the bedside, is not currently running. He has also been given 300 mg of amiodarone IV push. Hopefully can gain rate control. His INR is currently 2.4. He will need acute reversal of his anticoagulation in order to undergo exploratory laparotomy and repair of perforation of his bowel. I have discussed this patient with Dr. Alexandra I have ordered PCC for emergent reversal of his coagulopathy. (3) Perforated bowel Conclusion/Plan: CT of the abdomen pelvis shows perforated viscus. There is small bowel enteritis. 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 His white blood cell count is very low related to his myeloproliferative disorder and treatment for that. His ANC is 300. His hemoglobin and hematocrit do show an anemia. His platelet count is high. Patient denies any history of chronic abdominal pain. He was in his usual state of health until this morning when he woke up and started to have abdominal pain. He has had intentional weight loss in preparation for hip replacement surgery. I have a lactic acid specimen pending. His ABG is showing a picture of mixed respiratory and metabolic acidosis probably related to his tachypnea as well as his bowel perforation. At this point I am starting to believe that his tachypnea is related to his abdominal pain and bowel perforation. I have discussed this patient with my attending MD, Dr Thomas I have discussed this patient with Dr Alexandra, consulting surgeon. (4) Diabetes Conclusion/Plan: reviewed last outpatient note. He is currently on metformin. His last A1c was 5.7. He is not extremely hyperglycemic upon admission today. his glucose is 132. In the setting of acute illness we will watch his glucose and keep his blood sugar below 180 as needed with insulin. (5) Primary myelofibrosis Conclusion/Plan: on Fedratinib 400mg daily, and hydrea 2000mg daily. Bone marrow transplant has been deferred. Has pancytopenia related to this. Can transfuse as needed, and hold treatments for now to allow him to mount an immune response. Has splenomegaly, which per last oncology note 03/26, has decreased in size on last US 01/2024. (6) Hip osteoarthritis Conclusion/Plan: takes prednisone 10mg every other day for this. We will hold in the setting of acute illness, but be aware of the possibility of adrenal insufficiency in the setting of acute illness. - Lab Results Fish Bones: 04/24/24 07:45 04/24/24 07:45
[2024-04-24] MEDS ORDERED: diltiaZEM INJ 5 MG/ML VIAL IVP STA (10:16)
[2024-04-24 10:17] LABS: ABG OXYGEN SATURATION 86 % (94-98)
--- NOTE | 2024-04-24 11:03 | CT Report ---
PROCEDURE: Angio Chest INDICATIONS: hypoxia, tachycardia, h/o PE CONTRAST: IOHEX 300 100ML TECHNIQUE: After the administration of intravenous contrast, 2 mm axial images were acquired from the pulmonary apices to the posterior costophrenic angles during the arterial phase. In addition, 1 mm lung kernel and 5 mm soft tissue kernel reconstructions were performed. 3-dimensional coronal oblique maximum int ensity projection (MIP) reformats, 8 mm axial MIP, and 5 mm coronal and sagittal MPR reformats were t hen performed through the thorax. For radiation dose reduction, the following was used: automated exp osure control, adjustment of mA and/or kV according to patient size. COMPARISON: None. FINDINGS: Image quality: Excellent. Large vessels: Minimal pulmonary artery is prominent in size within the seen associated with pulmonar y vascular hypertension. No filling defects within the opacified pulmonary arteries, accounting for m otion and contrast timing. Mild ascending thoracic aortic aneurysm measures up to 4.5 cm in largest A P diameter. No gross aortic dissection. Lungs and pleura: There is elevation of right hemidiaphragm. Small right pleural effusion is seen wit h adjacent infiltrates/atelectasis in posterior medial aspect of right lower lobe. Trace left pleural effusion and dependent atelectasis versus small infiltrate in posterior aspect of left lung base is also seen. Ill-defined groundglass opacities are noted scattered in rest of bilateral aerated lung fi elds concerning for pulmonary edema versus pneumonitis. No pneumothorax. No suspicious pulmonary nod ules which require follow up. Mediastinum: Heart size is enlarged. No pericardial effusion. No large vessel abnormality. No mediast inal adenopathy by size criteria. Chest wall and lower neck: Thyroid is unremarkable. No axillary or supraclavicular adenopathy by size . Median sternotomy wires are seen. Bones: No aggressive osseous abnormality. Generalized anasarca is seen. Upper Abdomen: Small amount of ascites fluid adjacent to the liver is seen. No gross abnormality is s een in included portion of liver, spleen, gallbladder and bilateral adrenal glands. Simple appearing bilateral renal cysts are seen. No hydronephrosis. IMPRESSION: 1. No pulmonary embolus. Prominent size of main pulmonary artery which can be seen associated with pu lmonary vascular hypertension. 2. Ascending thoracic aortic aneurysm measures up to 4.5 cm in largest AP diameter. No gross thoracic aortic dissection. 3. Cardiomegaly, no pericardial effusion. No gross mediastinal or hilar lymphadenopathy. 4. Generalized anasarca concerning for third spacing. 5. Small right pleural effusion and trace left pleural effusion with bilateral basilar infiltrates/at electasis worse on the right side. Suggestion of mild pulmonary edema versus pneumonitis. No pneumoth orax. Airway is patent. 6. Small amount of ascites fluid adjacent to right lobe of liver. Bilateral simple appearing renal cy sts. No hydronephrosis. Reviewed by: Joe Tuttle MD on 04/24/2024 11:01 AM PDT Approved by: Joe Tuttle MD on 04/24/2024 11:01 AM PDT Station ID: [id number]
[2024-04-24] MEDS ORDERED: lidocaine 1% 20 ML MDV ONE (11:23)
[2024-04-24] MEDS ORDERED: HYDROmorphone 1 MG/ML CARPUJECT ONE (11:24)
[2024-04-24] MEDS: lidocaine 1% 20 ML MDV SUBQ ONE (11:33)
--- NOTE | 2024-04-24 11:58 | XRAY Report ---
PROCEDURE: Chest for Line Placement INDICATIONS: line placement TECHNIQUE: One view of the chest was acquired. COMPARISON: Earlier on the same date. FINDINGS: Surgical changes and devices: None remote midline sternotomy. Interval right-sided line placement, t ip which projects to the SVC right atrial junction. Lungs and pleura: No pleural effusions or pneumothorax. Submaximal inspiration. Question pulmonary e vasiliy. Mediastinum: Mediastinal contours appear normal. Heart size is normal. Bones and chest wall: No suspicious bony lesions. Overlying soft tissues appear unremarkable. IMPRESSION: 1. Right-sided line tip projects to the SVC right atrial junction. 2. Question pulmonary edema Reviewed by: Bay Jain MD on 04/24/2024 11:57 AM PDT Approved by: Bay Jain MD on 04/24/2024 11:57 AM PDT Station ID: [id number]
[2024-04-24] MEDS: AMIODARONE 150 MG/100 ML 100 ML IV STA (12:20)
[2024-04-24] MEDS: ETOMIDATE 40 MG/20 ML VIAL IVP STA (12:31)
[2024-04-24] MEDS: SUCCINYLCHOLINE 200 MG/10 ML VIAL IVP STA (12:32)
[2024-04-24] MEDS: VECURONIUM 10 MG VIAL IVP STA (12:35)
[2024-04-24] MEDS ORDERED: AMIODARONE 150 MG/100 ML 100 ML IV ONE (12:48)
[2024-04-24] MEDS ORDERED: AMIODARONE 360 MG/200 ML 200 ML IV ONE (12:48)
[2024-04-24] MEDS: PROPOFOL 1000 MG/100 ML 1,000 MG/100 ML BOTTLE IV STA (13:03)
[2024-04-24] MEDS: PROTHROMBIN COMPLEX CONC 500 UNIT VIAL IVP STA (13:13)
[2024-04-24] MEDS: AMIODARONE 150 MG/3 ML VIAL IVP STA (13:24)
[2024-04-24] MEDS: diltiaZEM INJ 125 MG in DEXTROSE 5% 100 ML IV STA (13:26)
--- NOTE | 2024-04-24 13:43 | XRAY Report ---
PROCEDURE: Chest for Line Placement INDICATIONS: intubation/OGT placement TECHNIQUE: One view of the chest was acquired. COMPARISON: None. FINDINGS: Surgical changes and devices: ET tube tip is approximately 5.1 cm above the diane. NG tube tip is i n the region of right lower lobe bronchus, should be pulled out and replaced. Right-sided central sherlyn ous catheter tip is in SVC. Lungs and pleura: Persistent elevation of right hemidiaphragm and pulmonary vascular congestion. Incr eased interstitial opacities are seen suggestive of interstitial infiltrates versus pulmonary edema. No pneumothorax. Mediastinum: Mediastinal contours appear normal. Heart size is enlarged. Bones and chest wall: No suspicious bony lesions. Overlying soft tissues appear unremarkable. IMPRESSION: ET tube is in satisfactory position. NG tube tip is in the region of right lower lobe bronchus, shoul d be pulled out and repositioned. Pulmonary vascular congestion and suggestion of pulmonary edema. Elevation of right hemidiaphragm. Un derlying right basilar infiltrate/atelectasis cannot be excluded. No pneumothorax. Reviewed by: Joe Tuttle MD on 04/24/2024 1:42 PM PDT Approved by: Joe Tuttle MD on 04/24/2024 1:42 PM PDT Station ID: [id number]
[2024-04-24] MEDS: NOREPINEPHRINE/0.9 % NS 8 MG/250 ML BAG IV SCH (13:53)
[2024-04-24 14:04] LABS: PARTIAL THROMBOPLASTIN TIME 23.9 secs (24.9-33.3)
--- NOTE | 2024-04-24 14:06 | PHARMACY PROGRESS NOTE ---
- Best Possible Medication History Admit Date and Time: Processed by: Pharmacy (Medication Reconciliation completed by Training AdministratorNoehmy.) Medications reviewed in ED?: Yes Medication History completed: Yes Patient Interview: Pt unable to participate (intubated, unable to confirm OTCs) Secondary Source(s): Physician records (Notes in [facility]), Pharmacy records, Insurance records As the person ultimately responsible for medication therapy, providers are able to order a medication from an existing home medication list in [facility] via the "Reconcile Routine" prior to Confirmation of that medication by decision support analyst. Such practice is discouraged except when the physician, in their clinical judgment, deems that a medical need exists for a medication without regard to previous use.
[2024-04-24 14:08] LABS: INR 1.7 (0.8-1.2); PT - PROTHROMBIN TIME 18.1 secs (9.9-12.6)
[2024-04-24] MEDS ORDERED: PHYTONADIONE INJ (ADULT) 10 MG in SODIUM CHLORIDE 0.9% 50 ML IV ONE (14:31)
[2024-04-24] MEDS: VASOPRESSIN 20 UNIT in DEXTROSE 5% 99 ML IV STA (15:14)
--- NOTE | 2024-04-24 15:25 | HISTORY & PHYSICAL EXAMINATION ---
HPI - Admitted From Admitted from: ED - History Obtained From History obtained from: Family - History of Present Illness HPI Comment/Other: 73-year-old male who was in his usual state of health until just before he presented to the emergency department this morning. 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 Also has diabetes most recent A1c was 5.7% on metformin as an outpatient. Have been planning for elective hip replacement in the near future. Has lost some weight in preparation for this. This is intentional. Additionally had medical clearance in place for elective hip replacement. Early this morning he got up to go to the bathroom and had sudden onset of abdominal pain it was severe enough that he presented directly to the emergency department. Since he has been here he has been hypoxic with sats from the 70s into the 90s. He has been tachycardic and tachypneic. He has a history of multiple myeloma and neutropenia. He had previously been s jay jay Pacheco here at [facility] and will be transitioning over to our new oncologist. He is anticoagulated on Coumadin for both his atrial fibrillation and his history of pulmonary embolus. He also has a history of obstructive sleep apnea and obesity. He is lost weight over the last year or so in preparation for an elective hip replacement. He walks daily with his , using a cane or trekking poles usually about a mile in an hour. He has a good support system with children in the [place] and [place] area. He lives with his Niurka, who is his surrogate decision maker. He expresses a desire for full code and full care. PMH/PSH - Past Medical History Cardiovascular: positive: Atrial fibrillation, Other (atrial myxoma) Respiratory: positive: None, CPAP use Neuro: positive: None Endocrine/Autoimmune: positive: Type 2 diabetes GI: positive: Other (splenic infarcts) : positive: None HEENT: positive: Chronic vision loss Psych: positive: None Musculoskeletal: positive: None Derm: positive: Other (skin cancers- sees derm) MRSA Hx?: No - Past Surgical History General: positive: Other (inguinal hernia repair- years ago, emergency surgery) Cardiovascular: positive: Other (sternotomy for cardiac myxoma) Social & Family Hx - Living Situation Living Arrangement: At home Living Situation: With spouse/s.o. - Social History Does the pt smoke?: No Smoking Status: Never smoker Does the pt drink ETOH?: Yes Does the pt have substance abuse?: No - POLST Patient has POLST: No POLST Status: Full Code (discussed briefly with patient and spouse, would like full code and full care.) Meds/Allgy - Home Medications Home Medications: Ambulatory Orders Medication Instructions Recorded Confirmed Lisinopril [Zestril] 20 mg PO DAILY 12/14/21 04/24/24 Multivit-Min/Iron/Folic Acid/K 1 tab PO DAILY 12/14/21 03/26/24 [Multi-Day Plus Minerals Tablet] [place]-3S/Dha/Epa/Fish Oil [Fish 2 mg PO DAILY 12/14/21 03/26/24 Oil 1,200 mg Softgel] Warfarin [Coumadin] 10 mg PO UD 12/14/21 04/24/24 glucosamine HCL [Glucosamine HCl] 1 mg PO DAILY 12/14/21 03/26/24 Levothyroxine Sodium 50 mcg PO DAILY 08/17/22 04/24/24 [Levothyroxine] Rosuvastatin Calcium [Crestor] 20 mg PO DAILY 08/17/22 04/24/24 Fedratinib Dihydrochloride 400 mg PO DAILY 08/19/22 04/24/24 [Inrebic] Tramadol HCl 50 mg PO TID PRN 10/04/23 04/24/24 predniSONE [Prednisone] 10 mg PO UD 03/19/24 04/24/24 Hydroxyurea [Hydrea] 2,000 mg PO DAILY 04/24/24 04/24/24 Metformin HCl [Metformin ER 500 mg PO DAILY 04/24/24 04/24/24 Osmotic] atenoloL [Tenormin] 25 mg PO DAILY 04/24/24 04/24/24 - Allergies Allergies/Adverse Reactions: Allergies Allergy/AdvReac Type Severity Reaction Status Date / Time No Known Drug Allergies Allergy Verified 04/24/24 07:41 Review of Systems - Respiratory Respiratory: reports: SOB at rest - Gastrointestinal Gastrointestinal: reports: Abdominal pain Exam - Vital Signs Reviewed Vital Signs: Yes Vital Signs: Vital Signs x48h Temp Pulse Resp BP Pulse Ox O2 Flow Rate 04/24/24 14:34 139 H 28 H 81/36 L 78 L 04/24/24 14:27 145 H 04/24/24 14:19 145 H 20 92/58 L 100 04/24/24 14:05 123 H 23 80/64 L 84 L 04/24/24 13:30 142 H 20 101/68 100 04/24/24 12:35 139 H 94/61 85 L 100 04/24/24 12:33 137 H 94/61 86 L 100 04/24/24 12:00 145 H 41 H 87/55 L 81 L 4 04/24/24 11:30 153 H 38 H 95/67 81 L 4 04/24/24 10:15 161 H 04/24/24 10:00 152 H 121/87 H 4 04/24/24 09:45 152 H 150/85 H 4 04/24/24 09:40 123 H 128/82 H 4 04/24/24 09:35 132 H 135/88 H 4 04/24/24 09:30 165 H 147/83 H 4 04/24/24 08:57 164 H 45 H 154/88 H 85 L 04/24/24 07:32 36.5 C 111 H 22 110/68 72 L - Physical Exam General Appearance: positive: Severe distress Respiratory: positive: Breath sounds nml. negative: No respiratory distress Cardiovascular: positive: Irregularly irregular, Tachycardia Abdomen: positive: Tenderness. negative: No distention Skin: positive: Dry, Pallor Neurologic/Psychiatric: negative: Oriented x3 Results - Lab Results Lab results reviewed: Yes Fish Bones: 04/24/24 07:45 04/24/24 07:45 Other Lab Results: Lab Results x24hrs 04/24/24 04/24/24 04/24/24 Range/Units 13:45 13:45 10:00 WBC (4.8-10.8) x10^3/uL RBC (4.70-6.10) 10^6/uL Hgb (14.0-18.0) g/dL Hct (42.0-52.0) % MCV (80.0-94.0) fL MCH (27.0-31.0) pg MCHC (32.0-36.0) g/dL RDW (12.0-15.0) % Plt Count (130-450) 10^3/uL MPV (7.4-11.4) fL Neut # (Auto) Lymph # (Auto) Wood # (Auto) Eos # (Auto) Baso # (Auto) Absolute Nucleated RBC Total Counted Band Neuts % (Manual) (0 - 10) % Abnorm Lymph % (Manual) % Nucleated RBC % Neutrophils # (Manual) (1.5-6.6) 10^3/uL Lymphocytes # (Manual) (1.5-3.5) 10^3/uL Monocytes # (Manual) (0.0-1.0) 10^3/uL Eosinophils # (Manual) (0-0.7) 10^3/uL Basophils # (Manual) (0-0.1) 10^3/uL Differential Comment Platelet Estimate (NORMAL) Platelet Morphology (NORMAL) RBC Morph Micro Appear (NORMAL) PT 18.1 H (9.9-12.6) secs INR 1.7 H (0.8-1.2) APTT 23.9 L (24.9-33.3) secs D-Dimer (200.0-255.0) ng/mL Bld Gas Analysis Time 1010 Sample Site RIGHT RADIAL ABG pH 7.29 L (7.35-7.45) ABG pCO2 45 (34-45) mmHg ABG pO2 57 L (80-100) mmHg ABG HCO3 21.6 L (22.0-26.0) mmol/L ABG Total CO2 23.0 (21.0-29.0) MMOL/L ABG O2 Saturation 86 L* (94-98) % ABG Oximetry Spot Check 94 % ABG Base Excess -5.0 L (-2.0-3.0) mmol/L Jeremy Test POSITIVE Room Air O2 Delivery Device NASAL CANNULA O2 Liters/Min 4.00 LPM Sodium (135-145) mmol/L Potassium (3.5-4.5) mmol/L Chloride (101-111) mmol/L Carbon Dioxide (21-32) mmol/L Anion Gap (6-13) BUN (6-20) mg/dL Creatinine (0.6-1.3) mg/dL Estimated GFR (MDRD) (>89) Glucose (74-104) mg/dL Lactic Acid 2.6 H (0.5-2.2) mmol/L Calcium (8.5-10.3) mg/dL Total Bilirubin (0.2-1.0) mg/dL AST (10-42) IU/L ALT (10-60) IU/L Alkaline Phosphatase (42-121) IU/L Troponin I High Sens (2.3-19.7) ng/L B-Natriuretic Peptide (5-100) pg/mL Total Protein (6.4-8.9) g/dL Albumin (3.2-5.5) g/dL Globulin (2.1-4.2) g/dL Albumin/Globulin Ratio (1.0-2.2) Lipase (11-82) U/L Urine Color Urine Clarity (CLEAR) Urine pH (5.0-7.5) PH Ur Specific [place] (1.002-1.030) Urine Protein (NEGATIVE) mg/dL Urine Glucose (UA) (NEGATIVE) mg/dL Urine Ketones (NEGATIVE) mg/dL Urine Occult Blood (NEGATIVE) Urine Nitrite (NEGATIVE) Urine Bilirubin (NEGATIVE) Urine Urobilinogen (NORMAL) E.U./dL Ur Leukocyte Esterase (NEGATIVE) Ur Microscopic Review Urine Culture Comments 04/24/24 04/24/24 04/24/24 Range/Units 07:52 07:45 07:45 WBC (4.8-10.8) x10^3/uL RBC (4.70-6.10) 10^6/uL Hgb (14.0-18.0) g/dL Hct (42.0-52.0) % MCV (80.0-94.0) fL MCH (27.0-31.0) pg MCHC (32.0-36.0) g/dL RDW (12.0-15.0) % Plt Count (130-450) 10^3/uL MPV (7.4-11.4) fL Neut # (Auto) Lymph # (Auto) Wood # (Auto) Eos # (Auto) Baso # (Auto) Absolute Nucleated RBC Total Counted Band Neuts % (Manual) (0 - 10) % Abnorm Lymph % (Manual) % Nucleated RBC % Neutrophils # (Manual) (1.5-6.6) 10^3/uL Lymphocytes # (Manual) (1.5-3.5) 10^3/uL Monocytes # (Manual) (0.0-1.0) 10^3/uL Eosinophils # (Manual) (0-0.7) 10^3/uL Basophils # (Manual) (0-0.1) 10^3/uL Differential Comment Platelet Estimate (NORMAL) Platelet Morphology (NORMAL) RBC Morph Micro Appear (NORMAL) PT 25.1 H (9.9-12.6) secs INR 2.4 H (0.8-1.2) APTT (24.9-33.3) secs D-Dimer (200.0-255.0) ng/mL Bld Gas Analysis Time 0800 Sample Site LEFT RADIAL ABG pH 7.38 (7.35-7.45) ABG pCO2 37 (34-45) mmHg ABG pO2 44 L (80-100) mmHg ABG HCO3 21.6 L (22.0-26.0) mmol/L ABG Total CO2 23.0 (21.0-29.0) MMOL/L ABG O2 Saturation 79 L* (94-98) % ABG Oximetry Spot Check 72 % ABG Base Excess -4.0 L (-2.0-3.0) mmol/L Jeremy Test POSITIVE Room Air YES O2 Delivery Device O2 Liters/Min LPM Sodium (135-145) mmol/L Potassium (3.5-4.5) mmol/L Chloride (101-111) mmol/L Carbon Dioxide (21-32) mmol/L Anion Gap (6-13) BUN (6-20) mg/dL Creatinine (0.6-1.3) mg/dL Estimated GFR (MDRD) (>89) Glucose (74-104) mg/dL Lactic Acid (0.5-2.2) mmol/L Calcium (8.5-10.3) mg/dL Total Bilirubin (0.2-1.0) mg/dL AST (10-42) IU/L ALT (10-60) IU/L Alkaline Phosphatase (42-121) IU/L Troponin I High Sens 5.7 (2.3-19.7) ng/L B-Natriuretic Peptide (5-100) pg/mL Total Protein (6.4-8.9) g/dL Albumin (3.2-5.5) g/dL Globulin (2.1-4.2) g/dL Albumin/Globulin Ratio (1.0-2.2) Lipase (11-82) U/L Urine Color Urine Clarity (CLEAR) Urine pH (5.0-7.5) PH Ur Specific [place] (1.002-1.030) Urine Protein (NEGATIVE) mg/dL Urine Glucose (UA) (NEGATIVE) mg/dL Urine Ketones (NEGATIVE) mg/dL Urine Occult Blood (NEGATIVE) Urine Nitrite (NEGATIVE) Urine Bilirubin (NEGATIVE) Urine Urobilinogen (NORMAL) E.U./dL Ur Leukocyte Esterase (NEGATIVE) Ur Microscopic Review Urine Culture Comments 04/24/24 04/24/24 04/24/24 Range/Units 07:45 07:45 07:45 WBC (4.8-10.8) x10^3/uL RBC (4.70-6.10) 10^6/uL Hgb (14.0-18.0) g/dL Hct (42.0-52.0) % MCV (80.0-94.0) fL MCH (27.0-31.0) pg MCHC (32.0-36.0) g/dL RDW (12.0-15.0) % Plt Count (130-450) 10^3/uL MPV (7.4-11.4) fL Neut # (Auto) Lymph # (Auto) Wood # (Auto) Eos # (Auto) Baso # (Auto) Absolute Nucleated RBC Total Counted Band Neuts % (Manual) (0 - 10) % Abnorm Lymph % (Manual) % Nucleated RBC % Neutrophils # (Manual) (1.5-6.6) 10^3/uL Lymphocytes # (Manual) (1.5-3.5) 10^3/uL Monocytes # (Manual) (0.0-1.0) 10^3/uL Eosinophils # (Manual) (0-0.7) 10^3/uL Basophils # (Manual) (0-0.1) 10^3/uL Differential Comment Platelet Estimate (NORMAL) Platelet Morphology (NORMAL) RBC Morph Micro Appear (NORMAL) PT (9.9-12.6) secs INR (0.8-1.2) APTT (24.9-33.3) secs D-Dimer 366.5 H (200.0-255.0) ng/mL Bld Gas Analysis Time Sample Site ABG pH (7.35-7.45) ABG pCO2 (34-45) mmHg ABG pO2 (80-100) mmHg ABG HCO3 (22.0-26.0) mmol/L ABG Total CO2 (21.0-29.0) MMOL/L ABG O2 Saturation (94-98) % ABG Oximetry Spot Check % ABG Base Excess (-2.0-3.0) mmol/L Jeremy Test Room Air O2 Delivery Device O2 Liters/Min LPM Sodium 138 (135-145) mmol/L Potassium 3.7 (3.5-4.5) mmol/L Chloride 108 (101-111) mmol/L Carbon Dioxide 23 (21-32) mmol/L Anion Gap 7.0 (6-13) BUN 29 H (6-20) mg/dL Creatinine 1.0 (0.6-1.3) mg/dL Estimated GFR (MDRD) 73 L (>89) Glucose 132 H (74-104) mg/dL Lactic Acid (0.5-2.2) mmol/L Calcium 9.0 (8.5-10.3) mg/dL Total Bilirubin 0.6 (0.2-1.0) mg/dL AST 16 (10-42) IU/L ALT 22 (10-60) IU/L Alkaline Phosphatase 107 (42-121) IU/L Troponin I High Sens (2.3-19.7) ng/L B-Natriuretic Peptide 58 (5-100) pg/mL Total Protein 5.5 L (6.4-8.9) g/dL Albumin 3.9 (3.2-5.5) g/dL Globulin 1.6 L (2.1-4.2) g/dL Albumin/Globulin Ratio 2.4 H (1.0-2.2) Lipase 19 (11-82) U/L Urine Color Urine Clarity (CLEAR) Urine pH (5.0-7.5) PH Ur Specific [place] (1.002-1.030) Urine Protein (NEGATIVE) mg/dL Urine Glucose (UA) (NEGATIVE) mg/dL Urine Ketones (NEGATIVE) mg/dL Urine Occult Blood (NEGATIVE) Urine Nitrite (NEGATIVE) Urine Bilirubin (NEGATIVE) Urine Urobilinogen (NORMAL) E.U./dL Ur Leukocyte Esterase (NEGATIVE) Ur Microscopic Review Urine Culture Comments 09/18/24 09/18/24 Range/Units 07:45 07:36 WBC 1.0 L* (4.8-10.8) x10^3/uL RBC 2.08 L (4.70-6.10) 10^6/uL Hgb 9.1 L (14.0-18.0) g/dL Hct 28.5 L (42.0-52.0) % MCV 137.0 H (80.0-94.0) fL MCH 43.8 H (27.0-31.0) pg MCHC 31.9 L (32.0-36.0) g/dL RDW 15.5 H (12.0-15.0) % Plt Count 565 H (130-450) 10^3/uL MPV 9.7 (7.4-11.4) fL Neut # (Auto) Not Reportable Lymph # (Auto) Not Reportable Wood # (Auto) Not Reportable Eos # (Auto) Not Reportable Baso # (Auto) Not Reportable Absolute Nucleated RBC Not Reportable Total Counted 100 Band Neuts % (Manual) 4 (0 - 10) % Abnorm Lymph % (Manual) 0 % Nucleated RBC % Not Reportable Neutrophils # (Manual) 0.3 L* (1.5-6.6) 10^3/uL Lymphocytes # (Manual) 0.7 L (1.5-3.5) 10^3/uL Monocytes # (Manual) 0.0 (0.0-1.0) 10^3/uL Eosinophils # (Manual) 0.0 (0-0.7) 10^3/uL Basophils # (Manual) 0.0 (0-0.1) 10^3/uL Differential Comment MANUAL DIFFERENTIAL Platelet Estimate INCREASED (>450,000) (NORMAL) Platelet Morphology NORMAL APPEARANCE (NORMAL) RBC Morph Micro Appear 1+ ANISOCYTOSIS (NORMAL) PT (9.9-12.6) secs INR (0.8-1.2) APTT (24.9-33.3) secs D-Dimer (200.0-255.0) ng/mL Bld Gas Analysis Time Sample Site ABG pH (7.35-7.45) ABG pCO2 (34-45) mmHg ABG pO2 (80-100) mmHg ABG HCO3 (22.0-26.0) mmol/L ABG Total CO2 (21.0-29.0) MMOL/L ABG O2 Saturation (94-98) % ABG Oximetry Spot Check % ABG Base Excess (-2.0-3.0) mmol/L Jeremy Test Room Air O2 Delivery Device O2 Liters/Min LPM Sodium (135-145) mmol/L Potassium (3.5-4.5) mmol/L Chloride (101-111) mmol/L Carbon Dioxide (21-32) mmol/L Anion Gap (6-13) BUN (6-20) mg/dL Creatinine (0.6-1.3) mg/dL Estimated GFR (MDRD) (>89) Glucose (74-104) mg/dL Lactic Acid (0.5-2.2) mmol/L Calcium (8.5-10.3) mg/dL Total Bilirubin (0.2-1.0) mg/dL AST (10-42) IU/L ALT (10-60) IU/L Alkaline Phosphatase (42-121) IU/L Troponin I High Sens (2.3-19.7) ng/L B-Natriuretic Peptide (5-100) pg/mL Total Protein (6.4-8.9) g/dL Albumin (3.2-5.5) g/dL Globulin (2.1-4.2) g/dL Albumin/Globulin Ratio (1.0-2.2) Lipase (11-82) U/L Urine Color YELLOW Urine Clarity CLEAR (CLEAR) Urine pH 5.5 (5.0-7.5) PH Ur Specific [place] 1.020 (1.002-1.030) Urine Protein NEGATIVE (NEGATIVE) mg/dL Urine Glucose (UA) NEGATIVE (NEGATIVE) mg/dL Urine Ketones NEGATIVE (NEGATIVE) mg/dL Urine Occult Blood NEGATIVE (NEGATIVE) Urine Nitrite NEGATIVE (NEGATIVE) Urine Bilirubin NEGATIVE (NEGATIVE) Urine Urobilinogen 0.2 (NORMAL) (NORMAL) E.U./dL Ur Leukocyte Esterase NEGATIVE (NEGATIVE) Ur Microscopic Review NOT INDICATED Urine Culture Comments NOT INDICATED - Diagnostic Imaging Results Diagnostic Imaging Results: positive: Final report reviewed Diagnostic Imaging Results Comments: CT abd/pel with pneumoperitoneum, ascites CTPA negative for PE Sepsis Event Note (H) - Evaluation Current Stage of Sepsis: Septic shock Possible source of Sepsis: positive: GI tract/intra-abdominal Impression/Plan - Problem List Problem List: 73yoM presenting to the ED in critical condition with acute respiratory failure and pneumoperitoneum. He is anticoagulated on warfarin, with INR 2.4 for a history of AFIB, PE, and hypercoaguable with multiple myeloma including history of splenic infarcts being followed clinically. He is neutropenic to a WBC of 1. Multidisciplinary discussions were had with ED physician, general surgeon (myself), hospitalist, [employer], and his Niurka, regarding his clinical condition, prognosis and ability to survive operation. Given that his INR would need to be reversed for surgery, a CTPA was done to rule out PE prior to administering PCC. During the ED course, central line and arterial lines were placed, he was intubated, started on zosyn, and started on levophed. I discussed Niurka multiple times that he is critically ill, that sepsis from pneumoperitoneum is not a survivable condition without surgical intervention, and that I am also unsure if he is able to survive an operation in his condition. Risks of surgery include ID, CVA, PE, . She understands, and would like to proceed with surgery. We will proceed to the operating room for exploratory laparotomy, possible bowel resection, possible stoma, and other interventions as indicated. We will plan for direct transfer to the ICU with hospitalist team management thereafter. Theresa Alexandra DO, FACS General Surgery, [facility]
[2024-04-24] MEDS: fentaNYL 2,500 MCG in SODIUM CHLORIDE 0.9% 200 ML IV STA (15:26)
--- NOTE | 2024-04-24 15:35 | ED Physician Documentation ---
ED Addendum - Addendum Addendum: 04/24/24 15:[address] Schultz at 3pm On levophed at 30, vaso at 0.04 Sat mid 80s. Has central line, dottie. Pressure ~50/30 D/w grave illness, unlikely to survive, still would like attempt at cpr. D/w cpr if needed likely futile. Asked RN to stop propofol, increase fentanyl, increase levo to 50, vaso to 0.07 RT to decrease map despite mid 80 sat given shock. He ended up going to the OR about 3:40pm
[2024-04-24] MEDS ORDERED: ROCURONIUM 50 MG/5 ML VIAL ONE ×2 (16:15→16:37)
[2024-04-24] MEDS ORDERED: PHENYLEPHRINE HCL 0.5 MG/5 ML AMPULE ONE (16:49)
[2024-04-24] MEDS ORDERED: PHENYLEPHRINE 10 MG/ML VIAL ONE ×2 (16:54→23:22)
[2024-04-24 16:55] LABS: BASOPHILS % (AUTO) 1.2 %; EOSINOPHILS % (AUTO) 1.2 %; HCT - HEMATOCRIT 28.6 % (42.0-52.0); LYMPHOCYTES # (AUTO) 0.2 10^3/uL (1.5-3.5); LYMPHOCYTES % (AUTO) 24.4 %; MEAN CORPUSCULAR HEMOGLOBIN 43.5 pg (27.0-31.0); MEAN CORPUSCULAR HGB CONC 31.5 g/dL (32.0-36.0); MEAN CORPUSCULAR VOLUME 138.2 fL (80.0-94.0); MEAN PLATELET VOLUME 9.2 fL (7.4-11.4); MONOCYTES # (AUTO) 0.2 10^3/uL (0.0-1.0); MONOCYTES % (AUTO) 19.5 %; NEUTROPHILS % (AUTO) 52.5 %; NRBC ABSOLUTE COUNT (AUTO) 0.02 x10^3/uL; NUCLEATED RED BLOOD CELLS AUTO 2.4 /100WBC; PLT - PLATELET COUNT 446 10^3/uL (130-450); RED BLOOD COUNT 2.07 10^6/uL (4.70-6.10); RED CELL DISTRIBUTION WIDTH 15.9 % (12.0-15.0)
[2024-04-24 16:57] LABS: ABG BASE EXCESS -12.7 mmol/L (-2.0-3.0); ABG HCO3 17.7 mmol/L (22.0-26.0); ABG PO2 62 mmHg (80-100); ABG TCO2 19.7 MMOL/L (21.0-29.0)
[2024-04-24] MEDS ORDERED: CALCIUM CHLORIDE ABBOJECT 1000MG/10 ML SYRINGE ONE (17:02)
[2024-04-24 17:03] LABS: ABG OXYGEN SATURATION 79 % (94-98); ABG PCO2 66 mmHg (34-45); ABG PH 7.05 (7.35-7.45); NEUTROPHILS # (AUTO) 0.4 10^3/uL (1.5-6.6); SLIDE REVIEW? Indicated; WHITE BLOOD COUNT 0.8 x10^3/uL (4.8-10.8)
[2024-04-24 17:05] LABS: ABG SATURATION PULSE OXIMETRY% 100 %
[2024-04-24 17:11] LABS: ALBUMIN/GLOBULIN RATIO 1.9 (1.0-2.2); BILIRUBIN,TOTAL 0.5 mg/dL (0.2-1.0); CALCIUM 7.7 mg/dL (8.5-10.3); POTASSIUM 4.1 mmol/L (3.5-4.5); TOTAL PROTEIN 4.6 g/dL (6.4-8.9)
[2024-04-24] MEDS: PHENYLEPHRINE 20 MG in SODIUM CHLORIDE 0.9% 248 ML IV ONE ×2 (17:56→23:37)
[2024-04-24] MEDS: AMIODARONE 360 MG/200 ML IV ONE (18:04)
--- NOTE | 2024-04-24 18:11 | OPERATIVE REPORT ---
Operative Report - General Admit Date: 04/24/24 Procedure Date: 04/24/24 Planned Procedure: exploratory laparotomy Pre-Op Diagnosis: pneumoperitoneum Procedure Performed: exploratory laparotomy, sigmoid colectomy, end colostomy (Ruben's procedure) Post Op Diagnosis: sigmoid perforation - Procedure Note Primary Surgeon: Theresa Alexandra DO Anesthesia Provider: Miriam Moss CRNA Anesthesia Technique: General ET tube Pathology: 1. Sigmoid and rectum with perforation, perforation is distal 2. Additional distal margin/rectum Estimated Blood Loss (mL): 25 Urine Output (mL): 700 Indications: presented to the ED in hypoxic respiratory failure with pneumoperitoneum. Findings: Large volume feculant peritonitis upon entering the abdomen, including one large free stool ball. A 3cm perforation in the sigmoid colon was found, without underlying inflammation of the colonic wall. There was fecal impaction in the rectum distally, a few diverticulae adjacent to the perforation, and a severely dilated colon proximally - I suspect that he had developed a large bowel obstruction secondary to rectal impaction, and this resulted in a perforated diverticulum (There was no sign of diverticulitis). Complications: none - Other Other Information/Narrative: The patient was brought to the operating room from the emergency room in critical condition, intubated, on Levophed and vasopressin and hypoxic; a central line arterial line Ruiz catheter and OG tube had already been placed in the emergency room. He was positioned on the operating room table supine and general anesthesia was induced. Zosyn was readministered in the operating room. The abdomen was prepped and draped in standard sterile fashion. A generous midline laparotomy was made sharply and carried down to the level of the fascia. The fascia was elevated with a DeBakey and incised with Metzenbaum scissors safely entering the peritoneal cavity. The fascia was then opened widely in the vertical direction with Bovie electrocautery. Upon entering the peritoneal cavity a large volume of feculent peritonitis was seen. The pool suction was used to evacuate the feculent fluid, including 1 large stool ball floating freely within the abdomen. The small bowel was run from the cecum to the ligament of Treitz and no perforation or pathology of the small bowel was identified. The colon was run from the cecum to the rectum. A 3 cm perforation on the medial aspect of the sigmoid colon was identified. The rectum distal to this was noted to have significant volume of fecal impaction, and the colon proximal to the perforation was noted to be severely distended. I suspect that the patient had developed a large bowel obstruction secondary to rectal impaction. There were a few scattered diverticuli adjacent to the sigmoid perforation, and I suspect that as a result of the large bowel obstruction 1 of these diverticula perforated and this is the source of the patient's sigmoid perforation. Decision was made to proceed with a sigmoid resection and Rosario's procedure. A MARINA stapler 75 mm blue load was used to isolate the sigmoid containing the perforation, the distal margin was the rectosigmoid junction, the proximal margin was proximal to all identified diverticula. The LigaSure was used to divide the mesentery adjacent to the bowel and the perforated sigmoid and proximal rectum was passed off the field as specimen. I opened the proximal and of the rectum where it was stapled to disimpact the significant volume of stool from what would be the remaining Rosario's pouch, and then I restapled the top of the rectum closed. I tagged the rectal staple line with a 2-0 Prolene suture which was left with 2 long tails to aid identification of the rectal stump in the event that the patient is able to have a Rosario's takedown in the future. The abdomen was then irrigated with 10 L of warm normal saline. A colostomy site was marked on the skin in the left lower quadrant lateral to the incision but still within the rectus muscle. A quarter sized area of skin was removed sharply as well as a column of subcutaneous tissue beneath the skin down to the level of the fascia a cruciate incision was made in both anterior and posterior fascia and the rectus muscles were spread. The distal end of the descending colon was brought up through the fascia as an end colostomy. The fascia was closed with #1 PDS suture x 2. The subcutaneous tissues were irrigated again and then the skin was closed with skin yousif. The end descending colostomy was matured with 2-0 Vicryl. An ostomy appliance and bag were placed over the well-perfused colostomy. A silver impregnated dressing was placed over the midline wound. The patient was transferred to the ICU postoperatively. He remained intubated. The OG tube had been exchanged for an NG tube which was confirmed to be in correct position within the stomach intraoperatively. The Ruiz catheter was left in place. At the time of transfer he was still hypoxic in the 80s and on Levophed vasopressin and phenylephrine. All sponge and needle counts were correct. There were no intraoperative complications.
[2024-04-24] MEDS ORDERED: SODIUM CHLORIDE FLUSH 0.9% 10 ML SYRINGE IVP PRN (18:17)
[2024-04-24] MEDS: SODIUM BICARBONATE ABBOJECT 50 MEQ/50 ML SYRINGE IVP ONE ×2 (18:18→19:34)
--- NOTE | 2024-04-24 18:24 | ANESTHESIA POST OP EVALUATION ---
Anesthesia Post Eval - Post Anesthesia Eval Vitals: Last Vital Signs Temp 36.5 C 04/24/24 07:32 Pulse 142 H 04/24/24 18:05 Resp 24 04/24/24 15:34 BP 95/35 L 04/24/24 15:34 Pulse Ox 83 L 04/24/24 15:34 O2 Flow Rate 100 04/24/24 12:35 CV Function Including HR & BP: Additional Therapies Ordered Pain Control: Satisfactory Nausea & Vomiting: Negative Mental Status: Other (intubated/sedated) Respiratory Status: Other (intubated/Ventilator) Hydration Status: Other Anesthesia Complications: None - Other Details/Therapies Other Details/Therapies: Patient critically ill, with poor oxygen saturation and multiple vasopressors to maintain blood pressure. Poor prognosis at this time.
[2024-04-24] MEDS ORDERED: SODIUM CHLORIDE 0.9% 500 ML IV PRN (18:30)
--- NOTE | 2024-04-24 18:31 | ANESTHESIA ---
Pre-Anesthesia VS, & Labs - Diagnosis Free air in the abdomen, perforated viscera - Procedure exploratory laparotomy Vital Signs: Temp Pulse Resp BP Pulse Ox O2 Flow Rate 36.5 C 142 H 24 95/35 L 83 L 100 04/24/24 07:32 04/24/24 18:05 04/24/24 15:34 04/24/24 15:34 04/24/24 15:34 04/24/24 12:35 Height: 6 ft Weight (kg): 126.5 kg Body Mass Index: 37.8 BMI Classification: Obese - NPO >8 hours - Lab Results Current Lab Results: Laboratory Tests 04/24/24 17:56: POC Whole Bld Glucose 136 H 04/24/24 16:45: Bld Gas Analysis Time 1653, Patient Temperature 36.0, ABG pH 7.05 L*, ABG pCO2 66 H*, ABG pO2 62 L, ABG HCO3 17.7 L, ABG Total CO2 19.7 L, ABG O2 Saturation 79 L*, ABG Oximetry Spot Check 100, ABG Base Excess -12.7 L, Jeremy Test NOT APPLICABLE 04/24/24 16:45: Sodium 140, Potassium 4.1, Chloride 115 H, Carbon Dioxide 22, Anion Gap 3.0 L, BUN 27 H, Creatinine 1.0, Estimated GFR (MDRD) 73 L, Glucose 167 H, Calcium 7.7 L, Total Bilirubin 0.5, AST 15, ALT 16, Alkaline Phosphatase 64, Total Protein 4.6 L, Albumin 3.0 L, Globulin 1.6 L, Albumin/Globulin Ratio 1.9 04/24/24 16:45: WBC 0.8 L*, RBC 2.07 L, Hgb 9.0 L, Hct 28.6 L, MCV 138.2 H, MCH 43.5 H, MCHC 31.5 L, RDW 15.9 H, Plt Count 446, MPV 9.2, Manual Slide Review Indicated 04/24/24 13:45: PT 18.1 H, INR 1.7 H, APTT 23.9 L 04/24/24 13:45: Lactic Acid 2.6 H 04/24/24 10:00: Bld Gas Analysis Time 1010, Sample Site RIGHT RADIAL, ABG pH 7.29 L, ABG pCO2 45, ABG pO2 57 L, ABG HCO3 21.6 L, ABG Total CO2 23.0, ABG O2 Saturation 86 L*, ABG Oximetry Spot Check 94, ABG Base Excess -5.0 L, Jeremy Test POSITIVE, O2 Delivery Device NASAL CANNULA, O2 Liters/Min 4.00 04/24/24 07:52: Bld Gas Analysis Time 0800, Sample Site LEFT RADIAL, ABG pH 7.38, ABG pCO2 37, ABG pO2 44 L, ABG HCO3 21.6 L, ABG Total CO2 23.0, ABG O2 Saturation 79 L*, ABG Oximetry Spot Check 72, ABG Base Excess -4.0 L, Jeremy Test POSITIVE, Room Air YES 04/24/24 07:45: Troponin I High Sens 5.7 04/24/24 07:45: PT 25.1 H, INR 2.4 H 04/24/24 07:45: D-Dimer 366.5 H 04/24/24 07:45: B-Natriuretic Peptide 58 04/24/24 07:45: Sodium 138, Potassium 3.7, Chloride 108, Carbon Dioxide 23, Anion Gap 7.0, BUN 29 H, Creatinine 1.0, Estimated GFR (MDRD) 73 L, Glucose 132 H, Calcium 9.0, Total Bilirubin 0.6, AST 16, ALT 22, Alkaline Phosphatase 107, Total Protein 5.5 L, Albumin 3.9, Globulin 1.6 L, Albumin/Globulin Ratio 2.4 H, Lipase 19 04/24/24 07:45: WBC 1.0 L*, RBC 2.08 L, Hgb 9.1 L, Hct 28.5 L, MCV 137.0 H, MCH 43.8 H, MCHC 31.9 L, RDW 15.5 H, Plt Count 565 H, MPV 9.7, Neut # (Auto) Not Reportable, Lymph # (Auto) Not Reportable, [place] # (Auto) Not Reportable, Eos # (Auto) Not Reportable, Baso # (Auto) Not Reportable, Absolute Nucleated RBC Not Reportable, Total Counted 100, Band Neuts % (Manual) 4, Abnorm Lymph % (Manual) 0, Nucleated RBC % Not Reportable, Neutrophils # (Manual) 0.3 L*, Lymphocytes # (Manual) 0.7 L, Monocytes # (Manual) 0.0, Eosinophils # (Manual) 0.0, Basophils # (Manual) 0.0, Differential Comment MANUAL DIFFERENTIAL, Platelet Estimate INCREASED (>450,000), Platelet Morphology NORMAL APPEARANCE, RBC Morph Micro Appear 1+ ANISOCYTOSIS Lab results reviewed: Yes Fish Bones: 04/24/24 16:45 04/24/24 16:45 Home Medications and Allergies Home Medications: Ambulatory Orders Hydroxyurea [Hydrea] 2,000 mg PO DAILY 04/24/24 Metformin HCl [Metformin ER Osmotic] 500 mg PO DAILY 04/24/24 atenoloL [Tenormin] 25 mg PO DAILY 04/24/24 Active Medications Heparin Sodium (Porcine) (Heparin 5,000 Unit/Ml Vial) 5,000 unit SUBQ BID FAYE Hydrocortisone Sodium Succinate (Hydrocortisone Succinate 100 Mg/2 Ml Vial) 100 mg IVP TID FAYE Diltiazem HCl 125 mg/ Dextrose 125 mls @ 5 mls/hr IV TITR STA; Protocol Stop: 04/25/24 11:15 Last Admin: 04/24/24 13:26 Dose: Not Given Amiodarone HCl/Dextrose (Nexterone 360 Mg/200 Ml) 200 mls @ 33.3 mls/hr IV ONCE ONE; Protocol Stop: 04/24/24 19:00 Last Admin: 04/24/24 18:04 Dose: 33.3 mls/hr Propofol (Diprivan) 1,000 mg in 100 mls @ 7.59 mls/hr IV TITR STA; Protocol Stop: 04/25/24 01:57 Last Titration: 04/24/24 15:32 Dose: 0 mcg/kg/min, 0 mls/hr Amiodarone HCl/Dextrose (Nexterone 360 Mg/200 Ml) 200 mls @ 16.667 mls/hr IV .Q12H FAYE NOREPINEPHRINE/0.9 % NS (Levophed 8 Mg/250-0.9% Nacl) 8 mg in 250 mls @ 15 mls/hr IV .[id number] FAYE; Protocol Last Admin: 04/24/24 17:57 Dose: 50 mcg/min, 93.75 mls/hr Vasopressin 20 unit/ Dextrose 100 mls @ 12 mls/hr IV .Q8H20M STA Stop: 04/24/24 22:54 Last Admin: 04/24/24 18:10 Dose: 0.08 unit/min, 24 mls/hr Fentanyl 2,500 mcg/ Sodium (Chloride) 250 mls @ 12.65 mls/hr IV .[id number] STA; Protocol Stop: 04/25/24 10:20 Last Titration: 04/24/24 15:32 Dose: 2 mcg/kg/hr, 25.3 mls/hr Phenylephrine HCl 20 mg/ (Sodium Chloride) 250 mls @ 75 mls/hr IV .Q3H20M ONE; Protocol Stop: 04/24/24 20:17 Last Admin: 04/24/24 17:56 Dose: 54.93 mcg/min, 41.2 mls/hr Lactated Ringer's (Lr) 1,000 mls @ 100 mls/hr IV .Q10H FAYE Pantoprazole Sodium (Pantoprazole 40 Mg Vial) 40 mg IVP QDAC FAYE Sodium Chloride (Sodium Chloride Flush 0.9% 10 Ml Syringe) 10 ml IVP 0100,0900,1700 FAYE Sodium Chloride (Sodium Chloride Flush 0.9% 10 Ml Syringe) 10 ml IVP PRN PRN PRN Reason: NEEDED PER PROVIDER ORDERS Lisinopril [Zestril] 20 mg PO DAILY 12/14/21 Multivit-Min/Iron/Folic Acid/K [Multi-Day Plus Minerals Tablet] 1 tab PO DAILY 12/14/21 [place]-3S/Dha/Epa/Fish Oil [Fish Oil 1,200 mg Softgel] 2 mg PO DAILY 12/14/21 Warfarin [Coumadin] 10 mg PO UD 12/14/21 glucosamine HCL [Glucosamine HCl] 1 mg PO DAILY 12/14/21 Levothyroxine Sodium [Levothyroxine] 50 mcg PO DAILY 08/17/22 Rosuvastatin Calcium [Crestor] 20 mg PO DAILY 08/17/22 Fedratinib Dihydrochloride [Inrebic] 400 mg PO DAILY 08/19/22 Tramadol HCl 50 mg PO TID PRN 10/04/23 predniSONE [Prednisone] 10 mg PO UD 03/19/24 Hydroxyurea [Hydrea] 2,000 mg PO DAILY 04/24/24 Metformin HCl [Metformin ER Osmotic] 500 mg PO DAILY 04/24/24 atenoloL [Tenormin] 25 mg PO DAILY 04/24/24 Allergies/Adverse Reactions: Allergies Allergy/AdvReac Type Severity Reaction Status Date / Time No Known Drug Allergies Allergy Verified 04/24/24 07:41 Anes History & Medical History - Anesthetic History Anesthesia Complications: reports: No previous complications - Medical History Cardiovascular: reports: Pulmonary embolism, Atrial fibrillation, Other Pulmonary: reports: Sleep apnea, CPAP use Gastrointestinal: reports: None Urinary: reports: None Neuro: reports: None Musculoskeletal: reports: None Endocrine/Autoimmune: reports: None Blood Disorders: reports: Polycythemia vera Skin: reports: None Smoking Status: Never smoker Psychosocial: reports: No issues indicated History of Cancer?: No - Surgical History General: reports: Other Cardiothoracic: reports: Other Exam General: Severe distress, Other (Intubated, on vent) Dental: Poor dentition Respiratory: Lungs clear Cardiovascular: Other (afib) Mental/Cognitive Status: Other (sedated) Plan Anesthesia Type: General, Other (Arterial line placed to right radial artery in the ED. Consent obtained from patient's as he is intubated and sedated.) Consent for Procedure(s) Verified and Reviewed: Yes Code Status: Attempt Resuscitation ASA classification: 5-Moribund (Critically ill patient, unlikely to survive.) Is this case an emergency?: Yes
[2024-04-24 18:32] LABS: PLATELET MORPHOLOGY NORMAL APPEARANCE (NORMAL)
[2024-04-24 18:33] LABS: DIFFERENTIAL COMMENT MANUAL=AUTO DIFF; PLATELET ESTIMATE, MANUAL NORMAL (130-450,000) (NORMAL)
[2024-04-24] MEDS ORDERED: SODIUM CHLORIDE 0.9% 1,000 ML ONE (18:35)
[2024-04-24] MEDS ORDERED: LACTATED RINGERS 1,000 ML IV SCH (19:00)
[2024-04-24 19:05] LABS: ABG PCO2 40 mmHg (34-45); ABG PH 7.22 (7.35-7.45); ABG PO2 55 mmHg (80-100)
[2024-04-24 19:06] LABS: ABG BASE EXCESS -10.9 mmol/L (-2.0-3.0); ABG HCO3 16.1 mmol/L (22.0-26.0); ABG TCO2 17.3 MMOL/L (21.0-29.0)
[2024-04-24 19:07] LABS: ABG OXYGEN SATURATION 84 % (94-98)
[2024-04-24 19:08] LABS: ABG MODE OF VENTILATION ASSIST/CONTROL
[2024-04-24] MEDS ORDERED: MIDAZOLAM DRIP 50 MG/50 ML 50 MG/50 ML BAG IV ONE (19:34)
[2024-04-24] MEDS ORDERED: SODIUM BICARBONATE 8.4% 50 MEQ/50 ML VIAL ONE (19:34)
[2024-04-24] MEDS ORDERED: DEXTROSE 5% 1,000 ML IV ONE (19:35)
[2024-04-24] MEDS: DIGOXIN 500 MCG/2 ML AMP IVP SCH (19:44)
[2024-04-24] MEDS: LEVOTHYROXINE 100 MCG VIAL IVP SCH (19:55)
[2024-04-24] MEDS ORDERED: DIGOXIN 500 MCG/2 ML AMP IVP SCH (20:00)
[2024-04-24] MEDS: SODIUM BICARBONATE 150 MEQ in DEXTROSE 5% 1,000 ML IV SCH (20:10)
[2024-04-24] MEDS: MIDAZOLAM DRIP 50 MG/50 ML 50 MG/50 ML BAG IV SCH (20:25)
[2024-04-24] MEDS: INSULIN REGULAR, HUMAN 300 UNIT/3 ML PEN SUBQ SCH (20:38)
--- NOTE | 2024-04-24 20:46 | XRAY Report ---
PROCEDURE: Chest 1V INDICATIONS: hypoxia TECHNIQUE: 1 view of the chest was acquired. 2 images. COMPARISON: Multiple CXR earlier today, 03/19/2024. CT pulmonary angiogram earlier today. FINDINGS: Surgical changes and devices: -Endotracheal tube in the mid trachea. -Enteric tube coursing into the stomach, repositioned. -Right sided central venous line with the catheter tip projecting in the region of the cavoatrial raquel ction. -Post median sternotomy. External EKG leads. Lungs and pleura: Trace right pleural effusion seen. No pneumothorax seen. Mild bilateral patchy opa city which is not significant change. Mediastinum: Mediastinal contours appear unchanged. Heart size is within normal limits. Bones and chest wall: No suspicious bony lesions. Overlying soft tissues appear unremarkable. IMPRESSION: 1. Enteric tube has been repositioned into the stomach. 2. Other tubes and lines are in satisfactory position. 3. Small right pleural effusion. Mild bilateral patchy opacity is not significantly changed. Reviewed by: Dustin Carver MD on 04/24/2024 8:44 PM PDT Approved by: Dustin Carver MD on 04/24/2024 8:44 PM PDT Station ID: [id number]
[2024-04-24] MEDS: ACETAMINOPHEN 1,000 MG/100 ML 1,000 MG/100 ML BAG IV ONE (20:55)
[2024-04-24 21:50] LABS: ABG BASE EXCESS -8.6 mmol/L (-2.0-3.0); ABG HCO3 16.7 mmol/L (22.0-26.0); ABG OXYGEN SATURATION 89 % (94-98); ABG PCO2 34 mmHg (34-45); ABG PH 7.31 (7.35-7.45); ABG PO2 57 mmHg (80-100); ABG TCO2 17.8 MMOL/L (21.0-29.0)
[2024-04-24 21:52] LABS: ABG RESPIRATORY RATE 20 b/min
[2024-04-24] MEDS ORDERED: VASOPRESSIN 20 UNIT/ML VIAL ONE (22:09)
[2024-04-24] MEDS ORDERED: DEXTROSE 5% 100 ML IV ONE (22:09)
[2024-04-24] MEDS: HYDROCORTISONE SUCCINATE 100 MG/2 ML VIAL IVP SCH (22:14)
[2024-04-24] MEDS: ALBUMIN 25% 12.5 GM/50 ML VIAL IV STA (22:19)
[2024-04-24] MEDS: HEPARIN 5,000 UNIT/ML VIAL SUBQ SCH (22:24)
[2024-04-24] MEDS: AMIODARONE 360 MG/200 ML 200 ML IV SCH (23:13)
[2024-04-25] MEDS: PIPERACILLIN/TAZOBACTAM 3.375 GM in SODIUM CHLORIDE 0.9% MINIBAG 100 ML IV SCH (00:02)
[2024-04-25 00:48] LABS: ABG PCO2 30 mmHg (34-45); ABG PH 7.34 (7.35-7.45)
[2024-04-25 00:49] LABS: ABG BASE EXCESS -8.9 mmol/L (-2.0-3.0); ABG HCO3 15.9 mmol/L (22.0-26.0); ABG OXYGEN SATURATION 96 % (94-98); ABG PO2 86 mmHg (80-100); ABG TCO2 16.8 MMOL/L (21.0-29.0)
[2024-04-25] MEDS ORDERED: PHENYLEPHRINE 10 MG/ML VIAL ONE ×5 (00:54→11:43)
[2024-04-25] MEDS ORDERED: NOREPINEPHRINE/0.9 % NS 8 MG/250 ML BAG IV ONE (01:00)
[2024-04-25] MEDS: SODIUM CHLORIDE FLUSH 0.9% 10 ML SYRINGE IVP SCH (01:50)
[2024-04-25] MEDS ORDERED: DEXTROSE 5% 100 ML IV ONE ×2 (01:54→19:32)
[2024-04-25] MEDS ORDERED: VASOPRESSIN 20 UNIT/ML VIAL ONE ×2 (01:57→06:21)
[2024-04-25] MEDS: VASOPRESSIN 20 UNIT in DEXTROSE 5% 99 ML IV STA (02:24)
[2024-04-25] MEDS: PHENYLEPHRINE 20 MG in SODIUM CHLORIDE 0.9% 248 ML IV SCH (02:48)
[2024-04-25 03:10] LABS: ABG BASE EXCESS -8.6 mmol/L (-2.0-3.0); ABG HCO3 16.1 mmol/L (22.0-26.0); ABG OXYGEN SATURATION 98 % (94-98); ABG PCO2 30 mmHg (34-45); ABG PH 7.34 (7.35-7.45); ABG PO2 122 mmHg (80-100); ABG RESPIRATORY RATE 16 b/min
[2024-04-25 04:53] LABS: BASOPHILS % (AUTO) 0.4 %; HCT - HEMATOCRIT 30.5 % (42.0-52.0); HGB - HEMOGLOBIN 9.9 g/dL (14.0-18.0); LYMPHOCYTES % (AUTO) 20.4 %; MEAN CORPUSCULAR HEMOGLOBIN 45.2 pg (27.0-31.0); MEAN CORPUSCULAR HGB CONC 32.5 g/dL (32.0-36.0); MEAN CORPUSCULAR VOLUME 139.3 fL (80.0-94.0); MEAN PLATELET VOLUME 10.5 fL (7.4-11.4); MONOCYTES % (AUTO) 24.6 %; NEUTROPHILS % (AUTO) 53.2 %; PLT - PLATELET COUNT 271 10^3/uL (130-450); RED BLOOD COUNT 2.19 10^6/uL (4.70-6.10); RED CELL DISTRIBUTION WIDTH 16.5 % (12.0-15.0); WHITE BLOOD COUNT 2.9 x10^3/uL (4.8-10.8)
[2024-04-25 05:04] LABS: VBG PH 7.185 (7.31-7.41)
[2024-04-25 05:06] LABS: INR 2.4 (0.8-1.2); PT - PROTHROMBIN TIME 25.4 secs (9.9-12.6)
[2024-04-25 05:16] LABS: ABNORMAL LYMPHS % (MANUAL) 3 %; ALBUMIN 3.2 g/dL (3.2-5.5); ALBUMIN/GLOBULIN RATIO 2.3 (1.0-2.2); BAND NEUTROPHILS % (MANUAL) 2 %; BILIRUBIN,TOTAL 0.5 mg/dL (0.2-1.0); CALCIUM 7.8 mg/dL (8.5-10.3); CREATININE 1.6 mg/dL (0.6-1.3); DIFFERENTIAL COMMENT MANUAL DIFFERENTIAL; LYMPHOCYTES # (MANUAL) 1.5 10^3/uL (1.5-3.5); LYMPHOCYTES % (MANUAL) 48 %; MAGNESIUM 1.7 mg/dL (1.7-2.3); METAMYELOCYTES % (MANUAL) 1 %; MONOCYTES # (MANUAL) 0.2 10^3/uL (0.0-1.0); MYELOCYTES % (MANUAL) 1 %; NEUTROPHILS # (MANUAL) 1.2 10^3/uL (1.5-6.6); NUCLEATED RBC (MANUAL) 2 %; PHOSPHORUS 4.2 mg/dL (2.5-5.0); PLATELET ESTIMATE, MANUAL NORMAL (130-450,000) (NORMAL); POTASSIUM 4.3 mmol/L (3.5-4.5); RBC MORPHOLOGY (MULTIPLE) 3+ MACROCYTOSIS (NORMAL); TOTAL PROTEIN 4.6 g/dL (6.4-8.9)
[2024-04-25 05:28] LABS: ABG BASE EXCESS -7.8 mmol/L (-2.0-3.0); ABG HCO3 16.6 mmol/L (22.0-26.0); ABG OXYGEN SATURATION 95 % (94-98); ABG PCO2 30 mmHg (34-45); ABG PH 7.36 (7.35-7.45); ABG PO2 75 mmHg (80-100); ABG TCO2 17.5 MMOL/L (21.0-29.0)
[2024-04-25 05:29] LABS: ABG MODE OF VENTILATION ASSIST/CONTROL; ABG RESPIRATORY RATE 20 b/min
[2024-04-25] MEDS: KETOROLAC 15 MG/ML VIAL IVP STA (06:27)
[2024-04-25] MEDS: PANTOPRAZOLE 40 MG VIAL IVP SCH (06:41)
[2024-04-25] MEDS: VASOPRESSIN 20 UNIT in DEXTROSE 5% 99 ML IV SCH (06:48)
--- NOTE | 2024-04-25 08:09 | PROVIDER PROGRESS NOTE ---
Subjective - Prog Note Date Prog Note Date: 04/25/24 Prog Note Time: 08:07 - Subjective Subjective: Overnight he was able to open his eyes and admit to discomfort when the Versed was lightened. He remains all multiple pressor medications but has had some improvement in his objective data. His oxygenation is improving he has defervesced overnight and although he is on multiple pressors his blood pressure are improving. He has maintained 10 to 20 cc/h of urine output overnight. His has been at the bedside all night and she is hopeful. Current Medications - Current Medications Current Medications: Medications Diltiazem HCl 125 mg/ Dextrose 125 mls @ 5 mls/hr IV TITR STA; Protocol Stop: 04/25/24 11:15 Last Admin: 04/24/24 13:26 Dose: Not Given Fentanyl 2,500 mcg/ Sodium (Chloride) 250 mls @ 12.65 mls/hr IV .[id number] ST[facility]; Protocol Stop: 04/25/24 10:20 Last Admin: 04/24/24 19:00 Dose: 0 mls/hr, 0 mcg/kg/hr NOREPINEPHRINE/0.9 % NS (Levophed 8 Mg/250-0.9% Nacl) 8 mg in 250 mls @ 15 mls/hr IV .[id number] [facility]; Protocol Last Admin: 04/25/24 06:48 Dose: 93.75 mls/hr, 50 mcg/min Fluconazole (Diflucan 200 Mg/100 Ml) 100 mls @ 100 mls/hr IV DAILY FAYE Heparin Sodium (Porcine) (Heparin 5,000 Unit/Ml Vial) 5,000 unit SUBQ BID FAYE Last Admin: 04/24/24 22:24 Dose: 5,000 unit Hydrocortisone Sodium Succinate (Hydrocortisone Succinate 100 Mg/2 Ml Vial) 100 mg IVP TID [facility] Last Admin: 04/25/24 06:36 Dose: 100 mg Acetaminophen (Acetaminophen) 1,000 mg in 100 mls @ 400 mls/hr IV Q8HR PRN PRN Reason: Moderate Pain (Level 4-6) Amiodarone HCl/Dextrose (Nexterone 360 Mg/200 Ml) 200 mls @ 16.667 mls/hr IV .Q12H [facility] Last Admin: 04/24/24 23:13 Dose: 16.667 mls/hr, 0.5 mg/min Digoxin (Digoxin 500 Mcg/2 Ml Amp) 500 mcg IVP ONCE [facility] Stop: 04/25/24 19:59 Last Admin: 04/24/24 19:44 Dose: 500 mcg Insulin Human Regular (Insulin Regular, Human 300 Unit/3 Ml Pen) 1 - 5 unit SUBQ Q6HR [facility]; Protocol Last Admin: 04/25/24 06:26 Dose: Not Given Levothyroxine Sodium (Levothyroxine 100 Mcg Vial) 12.5 mcg IVP Q5D [facility] Last Admin: 04/24/24 19:55 Dose: 12.5 mcg Midazolam HCl (Versed Drip 50 Mg/50 Ml) 50 mg in 50 mls @ 5.06 mls/hr IV .[id number] [facility]; Protocol Last Admin: 04/25/24 06:18 Dose: 3.795 mls/hr, 0.03 mg/kg/hr Pantoprazole Sodium (Pantoprazole 40 Mg Vial) 40 mg IVP QDAC [facility] Last Admin: 04/25/24 06:41 Dose: 40 mg Phenylephrine HCl 20 mg/ (Sodium Chloride) 250 mls @ 75 mls/hr IV .[id number] [facility]; Protocol Last Admin: 04/25/24 07:37 Dose: 146.25 mls/hr, 195 mcg/min Piperacillin Sod/Tazobactam (Sod 3.375 gm/ Sodium Chloride) 100 mls @ 200 mls/hr IV Q8H [facility] Last Admin: 04/25/24 00:43 Dose: Infused Sodium Bicarbonate 150 meq/ (Dextrose) 1,150 mls @ 100 mls/hr IV .[id number] [facility] Last Admin: 04/24/24 20:10 Dose: 100 mls/hr Vasopressin 20 unit/ Dextrose 100 mls @ 6 mls/hr IV .[id number] [facility] Last Admin: 04/25/24 06:48 Dose: 24 mls/hr, 0.08 unit/min Discontinued Medications Prothrombin Complex Concent (Human) (Prothrombin Complex Conc 500 Unit Vial) 2,000 unit IVP ONCE [facility] Stop: 04/24/24 12:28 Last Admin: 04/24/24 13:13 Dose: 2,000 unit Albumin Human (Albuminar-25) 12.5 gm in 50 mls @ 50 mls/hr IV ONCE [facility] Stop: 04/24/24 22:39 Last Admin: 04/24/24 23:43 Dose: Infused Objective - Vital Signs/Intake & Output Reviewed Vital Signs: Yes Vital Signs: Vital Signs Temp Pulse Pulse Resp BP BP Pulse Ox 04/25/24 07:54 134 H 04/25/24 07:00 37.6 C 135 H 28 H 87/60 L 102/65 93 04/25/24 06:55 135 H 86/38 L 101/65 04/25/24 06:50 135 H 97/59 L 103/65 04/25/24 06:45 135 H 96/68 109/66 04/25/24 06:40 135 H 99/39 L 112/70 04/25/24 06:35 135 H 140/106 H 113/70 04/25/24 06:30 135 H 119/81 H 112/70 04/25/24 06:25 135 H 111/71 111/70 04/25/24 06:20 135 H 108/76 115/71 04/25/24 06:10 135 H 102/67 112/70 04/25/24 06:05 135 H 82/28 L 109/69 04/25/24 06:00 37.7 C 135 H 28 H 70/16 L 111/70 98 04/25/24 05:45 135 H 66/44 L 103/67 04/25/24 05:31 136 H 04/25/24 05:30 136 H 85/68 L 104/66 04/25/24 05:15 136 H 129/84 H 104/65 04/25/24 05:00 38.0 C H 137 H 30 H 115/103 H 96/63 95 04/25/24 04:45 137 H 104/72 96/62 04/25/24 04:30 138 H 107/68 96/61 04/25/24 04:15 138 H 108/69 104/66 O2 Flow Rate 04/25/24 07:54 04/25/24 07:00 04/25/24 06:55 04/25/24 06:50 04/25/24 06:45 04/25/24 06:40 04/25/24 06:35 04/25/24 06:30 04/25/24 06:25 04/25/24 06:20 04/25/24 06:10 04/25/24 06:05 04/25/24 06:00 100 04/25/24 05:45 04/25/24 05:31 04/25/24 05:30 04/25/24 05:15 04/25/24 05:00 04/25/24 04:45 04/25/24 04:30 04/25/24 04:15 Intake & Output: Intake & Output 04/22/24 04/23/24 04/24/24 04/25/24 23:59 23:59 23:59 23:59 Intake Total 5605.213 2588.936 Output Total 258 179 Balance 5347.213 2409.936 - Objective General Appearance: positive: Other (intubated and sedated) Eyes Bilateral: positive: Normal inspection, Conjunctivae nml ENT: positive: ENT inspection nml Neck: positive: Nml inspection Respiratory: positive: Breath sounds nml. negative: Wheezes, Rales, Rhonchi Cardiovascular: positive: Irregularly irregular, Tachycardia Peripheral Pulses: 1+ Dorsalis pedis (R), 1+ Dorsalis pedis (L) Abdomen: positive: Other (Stoma slightly dusky as compared to immediately post op. there is scant bloody fluid in the stoma bag. NG output brown fluid) Skin: positive: Other (pale. petechiae about the upper extremities.) Extremities: positive: Pedal edema (minimal) Neurologic/Psychiatric: positive: Other (awakens slightly when versed is lightened.) - Lab Results Fish Bones: 04/25/24 14:44 04/25/24 14:44 Other Labs: Lab Results x24hrs 04/25/24 04/25/24 04/25/24 Range/Units 05:40 05:20 04:30 WBC (4.8-10.8) x10^3/uL RBC (4.70-6.10) 10^6/uL Hgb (14.0-18.0) g/dL Hct (42.0-52.0) % MCV (80.0-94.0) fL MCH (27.0-31.0) pg MCHC (32.0-36.0) g/dL RDW (12.0-15.0) % Plt Count (130-450) 10^3/uL MPV (7.4-11.4) fL Neut # (Auto) Lymph # (Auto) [place] # (Auto) Eos # (Auto) Baso # (Auto) Absolute Nucleated RBC Total Counted Band Neuts % (Manual) (0 - 10) % Abnorm Lymph % (Manual) % Metamyelocytes % ( - 0) % Myelocytes % ( - 0) % Nucleated RBC % Neutrophils # (Manual) (1.5-6.6) 10^3/uL Lymphocytes # (Manual) (1.5-3.5) 10^3/uL Monocytes # (Manual) (0.0-1.0) 10^3/uL Eosinophils # (Manual) (0-0.7) 10^3/uL Basophils # (Manual) (0-0.1) 10^3/uL Nucleated RBCs % Differential Comment Manual Slide Review Platelet Estimate (NORMAL) Platelet Morphology (NORMAL) RBC Morph Micro Appear (NORMAL) PT (9.9-12.6) secs INR (0.8-1.2) APTT (24.9-33.3) secs D-Dimer (200.0-255.0) ng/mL Bld Gas Analysis Time 0528 Sample Site A-LINE Patient Temperature CELSIUS ABG pH 7.36 (7.35-7.45) ABG pCO2 30 L (34-45) mmHg ABG pO2 75 L (80-100) mmHg ABG HCO3 16.6 L (22.0-26.0) mmol/L ABG Total CO2 17.5 L (21.0-29.0) MMOL/L ABG O2 Saturation 95 (94-98) % ABG Oximetry Spot Check % ABG Base Excess -7.8 L (-2.0-3.0) mmol/L Jeremy Test NOT APPLICABLE VBG pH 7.185 L* (7.31-7.41) Ionized Calcium 1.00 L (1.15-1.33) mmol/L Respiration Rate 20 b/min Room Air O2 Delivery Device VENTILATOR O2 Liters/Min LPM Vent Mode ASSIST/CONTROL FiO2 60.00 Tidal Volume 450 mL PEEP 8 cmH2O Pressure Support Vent cmH2O EPAP cmH2O IPAP cmH2O Sodium (135-145) mmol/L Potassium (3.5-4.5) mmol/L Chloride (101-111) mmol/L Carbon Dioxide (21-32) mmol/L Anion Gap (6-13) BUN (6-20) mg/dL Creatinine (0.6-1.3) mg/dL Estimated GFR (MDRD) (>89) Glucose (74-104) mg/dL POC Whole Bld Glucose 115 H (70 - 100) mg/dL Lactic Acid (0.5-2.2) mmol/L Calcium (8.5-10.3) mg/dL Phosphorus (2.5-5.0) mg/dL Magnesium (1.7-2.3) mg/dL Total Bilirubin (0.2-1.0) mg/dL AST (10-42) IU/L ALT (10-60) IU/L Alkaline Phosphatase (42-121) IU/L Troponin I High Sens (2.3-19.7) ng/L B-Natriuretic Peptide (5-100) pg/mL Total Protein (6.4-8.9) g/dL Albumin (3.2-5.5) g/dL Globulin (2.1-4.2) g/dL Albumin/Globulin Ratio (1.0-2.2) Random Cortisol ug/dL Nasal Screen MRSA (PCR) (NEGATIVE) 04/25/24 04/25/24 04/25/24 Range/Units 04:30 04:30 04:30 WBC 2.9 L (4.8-10.8) x10^3/uL RBC 2.19 L (4.70-6.10) 10^6/uL Hgb 9.9 L (14.0-18.0) g/dL Hct 30.5 L (42.0-52.0) % MCV 139.3 H (80.0-94.0) fL MCH 45.2 H (27.0-31.0) pg MCHC 32.5 (32.0-36.0) g/dL RDW 16.5 H (12.0-15.0) % Plt Count 271 (130-450) 10^3/uL MPV 10.5 (7.4-11.4) fL Neut # (Auto) Not Reportable Lymph # (Auto) Not Reportable [place] # (Auto) Not Reportable Eos # (Auto) Not Reportable Baso # (Auto) Not Reportable Absolute Nucleated RBC Not Reportable Total Counted 100 Band Neuts % (Manual) 2 (0 - 10) % Abnorm Lymph % (Manual) 3 % Metamyelocytes % 1 H ( - 0) % Myelocytes % 1 H ( - 0) % Nucleated RBC % Not Reportable Neutrophils # (Manual) 1.2 L (1.5-6.6) 10^3/uL Lymphocytes # (Manual) 1.5 (1.5-3.5) 10^3/uL Monocytes # (Manual) 0.2 (0.0-1.0) 10^3/uL Eosinophils # (Manual) 0.0 (0-0.7) 10^3/uL Basophils # (Manual) 0.0 (0-0.1) 10^3/uL Nucleated RBCs 2 % Differential Comment MANUAL DIFFERENTIAL Manual Slide Review Platelet Estimate NORMAL (130-450,000) (NORMAL) Platelet Morphology (NORMAL) RBC Morph Micro Appear 3+ MACROCYTOSIS (NORMAL) PT 25.4 H (9.9-12.6) secs INR 2.4 H (0.8-1.2) APTT (24.9-33.3) secs D-Dimer (200.0-255.0) ng/mL Bld Gas Analysis Time Sample Site Patient Temperature CELSIUS ABG pH (7.35-7.45) ABG pCO2 (34-45) mmHg ABG pO2 (80-100) mmHg ABG HCO3 (22.0-26.0) mmol/L ABG Total CO2 (21.0-29.0) MMOL/L ABG O2 Saturation (94-98) % ABG Oximetry Spot Check % ABG Base Excess (-2.0-3.0) mmol/L Jeremy Test VBG pH (7.31-7.41) Ionized Calcium (1.15-1.33) mmol/L Respiration Rate b/min Room Air O2 Delivery Device O2 Liters/Min LPM Vent Mode FiO2 Tidal Volume mL PEEP cmH2O Pressure Support Vent cmH2O EPAP cmH2O IPAP cmH2O Sodium 142 (135-145) mmol/L Potassium 4.3 (3.5-4.5) mmol/L Chloride 112 H (101-111) mmol/L Carbon Dioxide 19 L (21-32) mmol/L Anion Gap 11.0 (6-13) BUN 33 H (6-20) mg/dL Creatinine 1.6 H (0.6-1.3) mg/dL Estimated GFR (MDRD) 42 L (>89) Glucose 117 H (74-104) mg/dL POC Whole Bld Glucose (70 - 100) mg/dL Lactic Acid (0.5-2.2) mmol/L Calcium 7.8 L (8.5-10.3) mg/dL Phosphorus 4.2 (2.5-5.0) mg/dL Magnesium 1.7 (1.7-2.3) mg/dL Total Bilirubin 0.5 (0.2-1.0) mg/dL AST 226 H (10-42) IU/L ALT 256 H (10-60) IU/L Alkaline Phosphatase 54 (42-121) IU/L Troponin I High Sens (2.3-19.7) ng/L B-Natriuretic Peptide (5-100) pg/mL Total Protein 4.6 L (6.4-8.9) g/dL Albumin 3.2 (3.2-5.5) g/dL Globulin 1.4 L (2.1-4.2) g/dL Albumin/Globulin Ratio 2.3 H (1.0-2.2) Random Cortisol ug/dL Nasal Screen MRSA (PCR) (NEGATIVE) 04/25/24 04/25/24 04/24/24 Range/Units 02:55 00:30 23:42 WBC (4.8-10.8) x10^3/uL RBC (4.70-6.10) 10^6/uL Hgb (14.0-18.0) g/dL Hct (42.0-52.0) % MCV (80.0-94.0) fL MCH (27.0-31.0) pg MCHC (32.0-36.0) g/dL RDW (12.0-15.0) % Plt Count (130-450) 10^3/uL MPV (7.4-11.4) fL Neut # (Auto) Lymph # (Auto) [place] # (Auto) Eos # (Auto) Baso # (Auto) Absolute Nucleated RBC Total Counted Band Neuts % (Manual) (0 - 10) % Abnorm Lymph % (Manual) % Metamyelocytes % ( - 0) % Myelocytes % ( - 0) % Nucleated RBC % Neutrophils # (Manual) (1.5-6.6) 10^3/uL Lymphocytes # (Manual) (1.5-3.5) 10^3/uL Monocytes # (Manual) (0.0-1.0) 10^3/uL Eosinophils # (Manual) (0-0.7) 10^3/uL Basophils # (Manual) (0-0.1) 10^3/uL Nucleated RBCs % Differential Comment Manual Slide Review Platelet Estimate (NORMAL) Platelet Morphology (NORMAL) RBC Morph Micro Appear (NORMAL) PT (9.9-12.6) secs INR (0.8-1.2) APTT (24.9-33.3) secs D-Dimer (200.0-255.0) ng/mL Bld Gas Analysis Time 0306 0048 Sample Site A-LINE A-LINE Patient Temperature CELSIUS ABG pH 7.34 L 7.34 L (7.35-7.45) ABG pCO2 30 L 30 L (34-45) mmHg ABG pO2 122 H 86 (80-100) mmHg ABG HCO3 16.1 L 15.9 L (22.0-26.0) mmol/L ABG Total CO2 17.0 L 16.8 L (21.0-29.0) MMOL/L ABG O2 Saturation 98 96 (94-98) % ABG Oximetry Spot Check % ABG Base Excess -8.6 L -8.9 L (-2.0-3.0) mmol/L Jeremy Test NOT APPLICABLE NOT APPLICABLE VBG pH (7.31-7.41) Ionized Calcium (1.15-1.33) mmol/L Respiration Rate 16 b/min Room Air O2 Delivery Device VENTILATOR VENTILATOR O2 Liters/Min LPM Vent Mode FiO2 100.00 100.00 Tidal Volume mL PEEP 10 10 cmH2O Pressure Support Vent 16 16 cmH2O EPAP 10 10 cmH2O IPAP 15 15 cmH2O Sodium (135-145) mmol/L Potassium (3.5-4.5) mmol/L Chloride (101-111) mmol/L Carbon Dioxide (21-32) mmol/L Anion Gap (6-13) BUN (6-20) mg/dL Creatinine (0.6-1.3) mg/dL Estimated GFR (MDRD) (>89) Glucose (74-104) mg/dL POC Whole Bld Glucose 116 H (70 - 100) mg/dL Lactic Acid (0.5-2.2) mmol/L Calcium (8.5-10.3) mg/dL Phosphorus (2.5-5.0) mg/dL Magnesium (1.7-2.3) mg/dL Total Bilirubin (0.2-1.0) mg/dL AST (10-42) IU/L ALT (10-60) IU/L Alkaline Phosphatase (42-121) IU/L Troponin I High Sens (2.3-19.7) ng/L B-Natriuretic Peptide (5-100) pg/mL Total Protein (6.4-8.9) g/dL Albumin (3.2-5.5) g/dL Globulin (2.1-4.2) g/dL Albumin/Globulin Ratio (1.0-2.2) Random Cortisol ug/dL Nasal Screen MRSA (PCR) (NEGATIVE) 04/24/24 04/24/24 04/24/24 Range/Units 21:35 20:37 18:50 WBC (4.8-10.8) x10^3/uL RBC (4.70-6.10) 10^6/uL Hgb (14.0-18.0) g/dL Hct (42.0-52.0) % MCV (80.0-94.0) fL MCH (27.0-31.0) pg MCHC (32.0-36.0) g/dL RDW (12.0-15.0) % Plt Count (130-450) 10^3/uL MPV (7.4-11.4) fL Neut # (Auto) Lymph # (Auto) [place] # (Auto) Eos # (Auto) Baso # (Auto) Absolute Nucleated RBC Total Counted Band Neuts % (Manual) (0 - 10) % Abnorm Lymph % (Manual) % Metamyelocytes % ( - 0) % Myelocytes % ( - 0) % Nucleated RBC % Neutrophils # (Manual) (1.5-6.6) 10^3/uL Lymphocytes # (Manual) (1.5-3.5) 10^3/uL Monocytes # (Manual) (0.0-1.0) 10^3/uL Eosinophils # (Manual) (0-0.7) 10^3/uL Basophils # (Manual) (0-0.1) 10^3/uL Nucleated RBCs % Differential Comment Manual Slide Review Platelet Estimate (NORMAL) Platelet Morphology (NORMAL) RBC Morph Micro Appear (NORMAL) PT (9.9-12.6) secs INR (0.8-1.2) APTT (24.9-33.3) secs D-Dimer (200.0-255.0) ng/mL Bld Gas Analysis Time 2144 190 Sample Site A-LINE A-LINE Patient Temperature CELSIUS ABG pH 7.31 L 7.22 L (7.35-7.45) ABG pCO2 34 40 (34-45) mmHg ABG pO2 57 L 55 L (80-100) mmHg ABG HCO3 16.7 L 16.1 L (22.0-26.0) mmol/L ABG Total CO2 17.8 L 17.3 L (21.0-29.0) MMOL/L ABG O2 Saturation 89 L 84 L* (94-98) % ABG Oximetry Spot Check % ABG Base Excess -8.6 L -10.9 L (-2.0-3.0) mmol/L Jeremy Test NOT APPLICABLE NOT APPLICABLE VBG pH (7.31-7.41) Ionized Calcium (1.15-1.33) mmol/L Respiration Rate 20 b/min Room Air O2 Delivery Device VENTILATOR VENTILATOR O2 Liters/Min LPM Vent Mode ASSIST/CONTROL FiO2 100.00 100.00 Tidal Volume 650 mL PEEP cmH2O Pressure Support Vent 10 cmH2O EPAP 10 cmH2O IPAP 15 cmH2O Sodium (135-145) mmol/L Potassium (3.5-4.5) mmol/L Chloride (101-111) mmol/L Carbon Dioxide (21-32) mmol/L Anion Gap (6-13) BUN (6-20) mg/dL Creatinine (0.6-1.3) mg/dL Estimated GFR (MDRD) (>89) Glucose (74-104) mg/dL POC Whole Bld Glucose 132 H (70 - 100) mg/dL Lactic Acid (0.5-2.2) mmol/L Calcium (8.5-10.3) mg/dL Phosphorus (2.5-5.0) mg/dL Magnesium (1.7-2.3) mg/dL Total Bilirubin (0.2-1.0) mg/dL AST (10-42) IU/L ALT (10-60) IU/L Alkaline Phosphatase (42-121) IU/L Troponin I High Sens (2.3-19.7) ng/L B-Natriuretic Peptide (5-100) pg/mL Total Protein (6.4-8.9) g/dL Albumin (3.2-5.5) g/dL Globulin (2.1-4.2) g/dL Albumin/Globulin Ratio (1.0-2.2) Random Cortisol ug/dL Nasal Screen MRSA (PCR) (NEGATIVE) 04/24/24 04/24/24 04/24/24 Range/Units 18:15 18:15 17:56 WBC (4.8-10.8) x10^3/uL RBC (4.70-6.10) 10^6/uL Hgb (14.0-18.0) g/dL Hct (42.0-52.0) % MCV (80.0-94.0) fL MCH (27.0-31.0) pg MCHC (32.0-36.0) g/dL RDW (12.0-15.0) % Plt Count (130-450) 10^3/uL MPV (7.4-11.4) fL Neut # (Auto) Lymph # (Auto) [place] # (Auto) Eos # (Auto) Baso # (Auto) Absolute Nucleated RBC Total Counted Band Neuts % (Manual) (0 - 10) % Abnorm Lymph % (Manual) % Metamyelocytes % ( - 0) % Myelocytes % ( - 0) % Nucleated RBC % Neutrophils # (Manual) (1.5-6.6) 10^3/uL Lymphocytes # (Manual) (1.5-3.5) 10^3/uL Monocytes # (Manual) (0.0-1.0) 10^3/uL Eosinophils # (Manual) (0-0.7) 10^3/uL Basophils # (Manual) (0-0.1) 10^3/uL Nucleated RBCs % Differential Comment Manual Slide Review Platelet Estimate (NORMAL) Platelet Morphology (NORMAL) RBC Morph Micro Appear (NORMAL) PT (9.9-12.6) secs INR (0.8-1.2) APTT (24.9-33.3) secs D-Dimer (200.0-255.0) ng/mL Bld Gas Analysis Time Sample Site Patient Temperature CELSIUS ABG pH (7.35-7.45) ABG pCO2 (34-45) mmHg ABG pO2 (80-100) mmHg ABG HCO3 (22.0-26.0) mmol/L ABG Total CO2 (21.0-29.0) MMOL/L ABG O2 Saturation (94-98) % ABG Oximetry Spot Check % ABG Base Excess (-2.0-3.0) mmol/L Jeremy Test VBG pH (7.31-7.41) Ionized Calcium (1.15-1.33) mmol/L Respiration Rate b/min Room Air O2 Delivery Device O2 Liters/Min LPM Vent Mode FiO2 Tidal Volume mL PEEP cmH2O Pressure Support Vent cmH2O EPAP cmH2O IPAP cmH2O Sodium (135-145) mmol/L Potassium (3.5-4.5) mmol/L Chloride (101-111) mmol/L Carbon Dioxide (21-32) mmol/L Anion Gap (6-13) BUN (6-20) mg/dL Creatinine (0.6-1.3) mg/dL Estimated GFR (MDRD) (>89) Glucose (74-104) mg/dL POC Whole Bld Glucose 136 H (70 - 100) mg/dL Lactic Acid 2.1 (0.5-2.2) mmol/L Calcium (8.5-10.3) mg/dL Phosphorus (2.5-5.0) mg/dL Magnesium (1.7-2.3) mg/dL Total Bilirubin (0.2-1.0) mg/dL AST (10-42) IU/L ALT (10-60) IU/L Alkaline Phosphatase (42-121) IU/L Troponin I High Sens (2.3-19.7) ng/L B-Natriuretic Peptide (5-100) pg/mL Total Protein (6.4-8.9) g/dL Albumin (3.2-5.5) g/dL Globulin (2.1-4.2) g/dL Albumin/Globulin Ratio (1.0-2.2) Random Cortisol 26.5 ug/dL Nasal Screen MRSA (PCR) (NEGATIVE) 04/24/24 04/24/24 04/24/24 Range/Units 17:50 16:45 16:45 WBC (4.8-10.8) x10^3/uL RBC (4.70-6.10) 10^6/uL Hgb (14.0-18.0) g/dL Hct (42.0-52.0) % MCV (80.0-94.0) fL MCH (27.0-31.0) pg MCHC (32.0-36.0) g/dL RDW (12.0-15.0) % Plt Count (130-450) 10^3/uL MPV (7.4-11.4) fL Neut # (Auto) Lymph # (Auto) [place] # (Auto) Eos # (Auto) Baso # (Auto) Absolute Nucleated RBC Total Counted Band Neuts % (Manual) (0 - 10) % Abnorm Lymph % (Manual) % Metamyelocytes % ( - 0) % Myelocytes % ( - 0) % Nucleated RBC % Neutrophils # (Manual) (1.5-6.6) 10^3/uL Lymphocytes # (Manual) (1.5-3.5) 10^3/uL Monocytes # (Manual) (0.0-1.0) 10^3/uL Eosinophils # (Manual) (0-0.7) 10^3/uL Basophils # (Manual) (0-0.1) 10^3/uL Nucleated RBCs % Differential Comment Manual Slide Review Platelet Estimate (NORMAL) Platelet Morphology (NORMAL) RBC Morph Micro Appear (NORMAL) PT (9.9-12.6) secs INR (0.8-1.2) APTT (24.9-33.3) secs D-Dimer (200.0-255.0) ng/mL Bld Gas Analysis Time 1653 Sample Site Patient Temperature 36.0 CELSIUS ABG pH 7.05 L* (7.35-7.45) ABG pCO2 66 H* (34-45) mmHg ABG pO2 62 L (80-100) mmHg ABG HCO3 17.7 L (22.0-26.0) mmol/L ABG Total CO2 19.7 L (21.0-29.0) MMOL/L ABG O2 Saturation 79 L* (94-98) % ABG Oximetry Spot Check 100 % ABG Base Excess -12.7 L (-2.0-3.0) mmol/L Jeremy Test NOT APPLICABLE VBG pH (7.31-7.41) Ionized Calcium (1.15-1.33) mmol/L Respiration Rate b/min Room Air O2 Delivery Device O2 Liters/Min LPM Vent Mode FiO2 Tidal Volume mL PEEP cmH2O Pressure Support Vent cmH2O EPAP cmH2O IPAP cmH2O Sodium 140 (135-145) mmol/L Potassium 4.1 (3.5-4.5) mmol/L Chloride 115 H (101-111) mmol/L Carbon Dioxide 22 (21-32) mmol/L Anion Gap 3.0 L (6-13) BUN 27 H (6-20) mg/dL Creatinine 1.0 (0.6-1.3) mg/dL Estimated GFR (MDRD) 73 L (>89) Glucose 167 H (74-104) mg/dL POC Whole Bld Glucose (70 - 100) mg/dL Lactic Acid (0.5-2.2) mmol/L Calcium 7.7 L (8.5-10.3) mg/dL Phosphorus (2.5-5.0) mg/dL Magnesium (1.7-2.3) mg/dL Total Bilirubin 0.5 (0.2-1.0) mg/dL AST 15 (10-42) IU/L ALT 16 (10-60) IU/L Alkaline Phosphatase 64 (42-121) IU/L Troponin I High Sens (2.3-19.7) ng/L B-Natriuretic Peptide (5-100) pg/mL Total Protein 4.6 L (6.4-8.9) g/dL Albumin 3.0 L (3.2-5.5) g/dL Globulin 1.6 L (2.1-4.2) g/dL Albumin/Globulin Ratio 1.9 (1.0-2.2) Random Cortisol ug/dL Nasal Screen MRSA (PCR) NEGATIVE (NEGATIVE) 04/24/24 04/24/24 04/24/24 Range/Units 16:45 13:45 13:45 WBC 0.8 L* (4.8-10.8) x10^3/uL RBC 2.07 L (4.70-6.10) 10^6/uL Hgb 9.0 L (14.0-18.0) g/dL Hct 28.6 L (42.0-52.0) % MCV 138.2 H (80.0-94.0) fL MCH 43.5 H (27.0-31.0) pg MCHC 31.5 L (32.0-36.0) g/dL RDW 15.9 H (12.0-15.0) % Plt Count 446 (130-450) 10^3/uL MPV 9.2 (7.4-11.4) fL Neut # (Auto) 0.4 L* Lymph # (Auto) 0.2 L [place] # (Auto) 0.2 Eos # (Auto) 0.0 Baso # (Auto) 0.0 Absolute Nucleated RBC 0.02 Total Counted Band Neuts % (Manual) Not Reportable (0 - 10) % Abnorm Lymph % (Manual) Not Reportable % Metamyelocytes % ( - 0) % Myelocytes % ( - 0) % Nucleated RBC % 2.4 Neutrophils # (Manual) Not Reportable (1.5-6.6) 10^3/uL Lymphocytes # (Manual) Not Reportable (1.5-3.5) 10^3/uL Monocytes # (Manual) Not Reportable (0.0-1.0) 10^3/uL Eosinophils # (Manual) Not Reportable (0-0.7) 10^3/uL Basophils # (Manual) Not Reportable (0-0.1) 10^3/uL Nucleated RBCs % Differential Comment MANUAL=AUTO DIFF Manual Slide Review Indicated Platelet Estimate NORMAL (130-450,000) (NORMAL) Platelet Morphology NORMAL APPEARANCE (NORMAL) RBC Morph Micro Appear 1+ HYPOCHROMASIA (NORMAL) PT 18.1 H (9.9-12.6) secs INR 1.7 H (0.8-1.2) APTT 23.9 L (24.9-33.3) secs D-Dimer (200.0-255.0) ng/mL Bld Gas Analysis Time Sample Site Patient Temperature CELSIUS ABG pH (7.35-7.45) ABG pCO2 (34-45) mmHg ABG pO2 (80-100) mmHg ABG HCO3 (22.0-26.0) mmol/L ABG Total CO2 (21.0-29.0) MMOL/L ABG O2 Saturation (94-98) % ABG Oximetry Spot Check % ABG Base Excess (-2.0-3.0) mmol/L Jeremy Test VBG pH (7.31-7.41) Ionized Calcium (1.15-1.33) mmol/L Respiration Rate b/min Room Air O2 Delivery Device O2 Liters/Min LPM Vent Mode FiO2 Tidal Volume mL PEEP cmH2O Pressure Support Vent cmH2O EPAP cmH2O IPAP cmH2O Sodium (135-145) mmol/L Potassium (3.5-4.5) mmol/L Chloride (101-111) mmol/L Carbon Dioxide (21-32) mmol/L Anion Gap (6-13) BUN (6-20) mg/dL Creatinine (0.6-1.3) mg/dL Estimated GFR (MDRD) (>89) Glucose (74-104) mg/dL POC Whole Bld Glucose (70 - 100) mg/dL Lactic Acid 2.6 H (0.5-2.2) mmol/L Calcium (8.5-10.3) mg/dL Phosphorus (2.5-5.0) mg/dL Magnesium (1.7-2.3) mg/dL Total Bilirubin (0.2-1.0) mg/dL AST (10-42) IU/L ALT (10-60) IU/L Alkaline Phosphatase (42-121) IU/L Troponin I High Sens (2.3-19.7) ng/L B-Natriuretic Peptide (5-100) pg/mL Total Protein (6.4-8.9) g/dL Albumin (3.2-5.5) g/dL Globulin (2.1-4.2) g/dL Albumin/Globulin Ratio (1.0-2.2) Random Cortisol ug/dL Nasal Screen MRSA (PCR) (NEGATIVE) 04/24/24 04/24/24 04/24/24 Range/Units 10:00 07:52 07:45 WBC (4.8-10.8) x10^3/uL RBC (4.70-6.10) 10^6/uL Hgb (14.0-18.0) g/dL Hct (42.0-52.0) % MCV (80.0-94.0) fL MCH (27.0-31.0) pg MCHC (32.0-36.0) g/dL RDW (12.0-15.0) % Plt Count (130-450) 10^3/uL MPV (7.4-11.4) fL Neut # (Auto) Lymph # (Auto) [place] # (Auto) Eos # (Auto) Baso # (Auto) Absolute Nucleated RBC Total Counted Band Neuts % (Manual) (0 - 10) % Abnorm Lymph % (Manual) % Metamyelocytes % ( - 0) % Myelocytes % ( - 0) % Nucleated RBC % Neutrophils # (Manual) (1.5-6.6) 10^3/uL Lymphocytes # (Manual) (1.5-3.5) 10^3/uL Monocytes # (Manual) (0.0-1.0) 10^3/uL Eosinophils # (Manual) (0-0.7) 10^3/uL Basophils # (Manual) (0-0.1) 10^3/uL Nucleated RBCs % Differential Comment Manual Slide Review Platelet Estimate (NORMAL) Platelet Morphology (NORMAL) RBC Morph Micro Appear (NORMAL) PT (9.9-12.6) secs INR (0.8-1.2) APTT (24.9-33.3) secs D-Dimer (200.0-255.0) ng/mL Bld Gas Analysis Time 1010 0800 Sample Site RIGHT RADIAL LEFT RADIAL Patient Temperature CELSIUS ABG pH 7.29 L 7.38 (7.35-7.45) ABG pCO2 45 37 (34-45) mmHg ABG pO2 57 L 44 L (80-100) mmHg ABG HCO3 21.6 L 21.6 L (22.0-26.0) mmol/L ABG Total CO2 23.0 23.0 (21.0-29.0) MMOL/L ABG O2 Saturation 86 L* 79 L* (94-98) % ABG Oximetry Spot Check 94 72 % ABG Base Excess -5.0 L -4.0 L (-2.0-3.0) mmol/L Jeremy Test POSITIVE POSITIVE VBG pH (7.31-7.41) Ionized Calcium (1.15-1.33) mmol/L Respiration Rate b/min Room Air YES O2 Delivery Device NASAL CANNULA O2 Liters/Min 4.00 LPM Vent Mode FiO2 Tidal Volume mL PEEP cmH2O Pressure Support Vent cmH2O EPAP cmH2O IPAP cmH2O Sodium (135-145) mmol/L Potassium (3.5-4.5) mmol/L Chloride (101-111) mmol/L Carbon Dioxide (21-32) mmol/L Anion Gap (6-13) BUN (6-20) mg/dL Creatinine (0.6-1.3) mg/dL Estimated GFR (MDRD) (>89) Glucose (74-104) mg/dL POC Whole Bld Glucose (70 - 100) mg/dL Lactic Acid (0.5-2.2) mmol/L Calcium (8.5-10.3) mg/dL Phosphorus (2.5-5.0) mg/dL Magnesium (1.7-2.3) mg/dL Total Bilirubin (0.2-1.0) mg/dL AST (10-42) IU/L ALT (10-60) IU/L Alkaline Phosphatase (42-121) IU/L Troponin I High Sens 5.7 (2.3-19.7) ng/L B-Natriuretic Peptide (5-100) pg/mL Total Protein (6.4-8.9) g/dL Albumin (3.2-5.5) g/dL Globulin (2.1-4.2) g/dL Albumin/Globulin Ratio (1.0-2.2) Random Cortisol ug/dL Nasal Screen MRSA (PCR) (NEGATIVE) 04/24/24 04/24/24 04/24/24 Range/Units 07:45 07:45 07:45 WBC (4.8-10.8) x10^3/uL RBC (4.70-6.10) 10^6/uL Hgb (14.0-18.0) g/dL Hct (42.0-52.0) % MCV (80.0-94.0) fL MCH (27.0-31.0) pg MCHC (32.0-36.0) g/dL RDW (12.0-15.0) % Plt Count (130-450) 10^3/uL MPV (7.4-11.4) fL Neut # (Auto) Lymph # (Auto) [place] # (Auto) Eos # (Auto) Baso # (Auto) Absolute Nucleated RBC Total Counted Band Neuts % (Manual) (0 - 10) % Abnorm Lymph % (Manual) % Metamyelocytes % ( - 0) % Myelocytes % ( - 0) % Nucleated RBC % Neutrophils # (Manual) (1.5-6.6) 10^3/uL Lymphocytes # (Manual) (1.5-3.5) 10^3/uL Monocytes # (Manual) (0.0-1.0) 10^3/uL Eosinophils # (Manual) (0-0.7) 10^3/uL Basophils # (Manual) (0-0.1) 10^3/uL Nucleated RBCs % Differential Comment Manual Slide Review Platelet Estimate (NORMAL) Platelet Morphology (NORMAL) RBC Morph Micro Appear (NORMAL) PT 25.1 H (9.9-12.6) secs INR 2.4 H (0.8-1.2) APTT (24.9-33.3) secs D-Dimer 366.5 H (200.0-255.0) ng/mL Bld Gas Analysis Time Sample Site Patient Temperature CELSIUS ABG pH (7.35-7.45) ABG pCO2 (34-45) mmHg ABG pO2 (80-100) mmHg ABG HCO3 (22.0-26.0) mmol/L ABG Total CO2 (21.0-29.0) MMOL/L ABG O2 Saturation (94-98) % ABG Oximetry Spot Check % ABG Base Excess (-2.0-3.0) mmol/L Jeremy Test VBG pH (7.31-7.41) Ionized Calcium (1.15-1.33) mmol/L Respiration Rate b/min Room Air O2 Delivery Device O2 Liters/Min LPM Vent Mode FiO2 Tidal Volume mL PEEP cmH2O Pressure Support Vent cmH2O EPAP cmH2O IPAP cmH2O Sodium (135-145) mmol/L Potassium (3.5-4.5) mmol/L Chloride (101-111) mmol/L Carbon Dioxide (21-32) mmol/L Anion Gap (6-13) BUN (6-20) mg/dL Creatinine (0.6-1.3) mg/dL Estimated GFR (MDRD) (>89) Glucose (74-104) mg/dL POC Whole Bld Glucose (70 - 100) mg/dL Lactic Acid (0.5-2.2) mmol/L Calcium (8.5-10.3) mg/dL Phosphorus (2.5-5.0) mg/dL Magnesium (1.7-2.3) mg/dL Total Bilirubin (0.2-1.0) mg/dL AST (10-42) IU/L ALT (10-60) IU/L Alkaline Phosphatase (42-121) IU/L Troponin I High Sens (2.3-19.7) ng/L B-Natriuretic Peptide 58 (5-100) pg/mL Total Protein (6.4-8.9) g/dL Albumin (3.2-5.5) g/dL Globulin (2.1-4.2) g/dL Albumin/Globulin Ratio (1.0-2.2) Random Cortisol ug/dL Nasal Screen MRSA (PCR) (NEGATIVE) 04/24/24 Range/Units 07:45 WBC 1.0 L* (4.8-10.8) x10^3/uL RBC 2.08 L (4.70-6.10) 10^6/uL Hgb 9.1 L (14.0-18.0) g/dL Hct 28.5 L (42.0-52.0) % MCV 137.0 H (80.0-94.0) fL MCH 43.8 H (27.0-31.0) pg MCHC 31.9 L (32.0-36.0) g/dL RDW 15.5 H (12.0-15.0) % Plt Count 565 H (130-450) 10^3/uL MPV 9.7 (7.4-11.4) fL Neut # (Auto) Not Reportable Lymph # (Auto) Not Reportable [place] # (Auto) Not Reportable Eos # (Auto) Not Reportable Baso # (Auto) Not Reportable Absolute Nucleated RBC Not Reportable Total Counted 100 Band Neuts % (Manual) 4 (0 - 10) % Abnorm Lymph % (Manual) 0 % Metamyelocytes % ( - 0) % Myelocytes % ( - 0) % Nucleated RBC % Not Reportable Neutrophils # (Manual) 0.3 L* (1.5-6.6) 10^3/uL Lymphocytes # (Manual) 0.7 L (1.5-3.5) 10^3/uL Monocytes # (Manual) 0.0 (0.0-1.0) 10^3/uL Eosinophils # (Manual) 0.0 (0-0.7) 10^3/uL Basophils # (Manual) 0.0 (0-0.1) 10^3/uL Nucleated RBCs % Differential Comment MANUAL DIFFERENTIAL Manual Slide Review Platelet Estimate INCREASED (>450,000) (NORMAL) Platelet Morphology NORMAL APPEARANCE (NORMAL) RBC Morph Micro Appear 1+ ANISOCYTOSIS (NORMAL) PT (9.9-12.6) secs INR (0.8-1.2) APTT (24.9-33.3) secs D-Dimer (200.0-255.0) ng/mL Bld Gas Analysis Time Sample Site Patient Temperature CELSIUS ABG pH (7.35-7.45) ABG pCO2 (34-45) mmHg ABG pO2 (80-100) mmHg ABG HCO3 (22.0-26.0) mmol/L ABG Total CO2 (21.0-29.0) MMOL/L ABG O2 Saturation (94-98) % ABG Oximetry Spot Check % ABG Base Excess (-2.0-3.0) mmol/L Jeremy Test VBG pH (7.31-7.41) Ionized Calcium (1.15-1.33) mmol/L Respiration Rate b/min Room Air O2 Delivery Device O2 Liters/Min LPM Vent Mode FiO2 Tidal Volume mL PEEP cmH2O Pressure Support Vent cmH2O EPAP cmH2O IPAP cmH2O Sodium (135-145) mmol/L Potassium (3.5-4.5) mmol/L Chloride (101-111) mmol/L Carbon Dioxide (21-32) mmol/L Anion Gap (6-13) BUN (6-20) mg/dL Creatinine (0.6-1.3) mg/dL Estimated GFR (MDRD) (>89) Glucose (74-104) mg/dL POC Whole Bld Glucose (70 - 100) mg/dL Lactic Acid (0.5-2.2) mmol/L Calcium (8.5-10.3) mg/dL Phosphorus (2.5-5.0) mg/dL Magnesium (1.7-2.3) mg/dL Total Bilirubin (0.2-1.0) mg/dL AST (10-42) IU/L ALT (10-60) IU/L Alkaline Phosphatase (42-121) IU/L Troponin I High Sens (2.3-19.7) ng/L B-Natriuretic Peptide (5-100) pg/mL Total Protein (6.4-8.9) g/dL Albumin (3.2-5.5) g/dL Globulin (2.1-4.2) g/dL Albumin/Globulin Ratio (1.0-2.2) Random Cortisol ug/dL Nasal Screen MRSA (PCR) (NEGATIVE) Sepsis Event Note (H) - Evaluation Current Stage of Sepsis: Septic shock Possible source of Sepsis: positive: GI tract/intra-abdominal - Sepsis Criteria Sepsis Criteria: Recorded Temperature greater than 38.3C or Less than 36C, Recorded Heart Rate greater than 90 bpm, Respiratory: Increasing oxygen requirements, WBC count greater than 12,000 or less than 4000, MAP less than 65 mmHg, Metabolic: lactate > 2 mmol/L Assessment/Plan - Problem List (1) Acute respiratory distress syndrome (ARDS) Impression: Yesterday evening patient had deterioration of his blood gas values with increasing of his tidal volumes. He was continuing to oxygenate poorly. Ventilator settings changed to bilevel settings with high low-dose of 13/8. Respiratory rate was set at 20. At that time he was on 100% FiO2. We have been able to decrease the FiO2 to 70% overnight. His blood gases have improved markedly. His SpO2 readings continue to be tenuous but I believe this is more related to the measuring versus the actual values. He is on multiple pressors with much peripheral vasoconstriction. This afternoon he is appearing more uncomfortable. His respiratory rate has increased to 30 is overbreathing the vent we will add a fentanyl drip to assist with his comfort and hopefully his respiratory rate will come down. His heart rate is also increasing slightly. I discussed his case with Dr Carrie Hill at yesterday evening. He was too sick to transfer. Laboratory Tests 04/24/24 04/25/24 04/25/24 16:45 00:30 02:55 Bld Gas Analysis Time 1653 [id number] Sample Site A-LINE A-LINE Patient Temperature 36.0 ABG pH 7.05 L* 7.34 L 7.34 L ABG pCO2 66 H* 30 L 30 L ABG pO2 62 L 86 122 H ABG HCO3 17.7 L 15.9 L 16.1 L ABG Total CO2 19.7 L 16.8 L 17.0 L ABG O2 Saturation 79 L* 96 98 ABG Oximetry Spot Check 100 ABG Base Excess -12.7 L -8.9 L -8.6 L 04/25/24 05:20 Bld Gas Analysis Time Sample Site Patient Temperature ABG pH 7.36 ABG pCO2 30 L ABG pO2 75 L ABG HCO3 16.6 L ABG Total CO2 17.5 L ABG O2 Saturation 95 ABG Oximetry Spot Check ABG Base Excess -7.8 L (2) Acute hypoxic respiratory failure Impression: History of DVT with PE. . CT angiogram is negative for any acute PE. There is pulmonary hypertension. There is pulmonary congestion. Patient is tachypneic. He is tachycardic. He has had about 4 L of crystalloid infused today. He had no respiratory complaints on admission to the hospital. He is in severe abdominal pain. He is unable to take a deep breath secondary to his abdominal pain. Please see discussion above regarding acute respiratory distress syndrome and ventilator settings. His oxygenation and ventilation are improving. (3) Atrial fibrillation with rapid ventricular response Impression: He has a long history of atrial fibrillation. In response to his acute bowel perforation he is in rapid ventricular response. His INR on admission was 2.4. He was reversed with [facility]. His preoperative INR was 1.7. This afternoon I see a rise in his INR to 2.9. Possibly related to coagulopathy and shock liver. He is currently on an amiodarone drip. We are getting some measure of rate control with this. He is approaching 24 hours postop. Given his history of pulmonary embolus and his atrial fibrillation will likely restart anticoagulation at about 36 hours postop. This is per my discussion with Dr. Mckinnon immediately postoperatively. I will continue to monitor his INR. (4) Sepsis Impression: Sepsis of intra-abdominal origin secondary to perforated sigmoid colon, postop day 1 status post Rosario's procedure. He defervesced overnight. H his lactate was 2.6 after 4 L of crystalloid given in the emergency department. This was the first lactate value that was obtained. I repeated his lactate postoperatively and it was trending down to 2.1. He maintained 10 to 20 cc of urine output every hour overnight. His urine output has picked up slightly this afternoon since starting dobutamine.His creatinine is worsened slightly with a value of 1.0 on admission up to 1.6 this morning but stable this afternoon. He has leukopenia related to his sepsis. His white blood cell count seems to be rising since admission. His ANC count is also increasing. Laboratory Tests 04/24/24 04/24/24 04/25/24 07:45 16:45 04:30 WBC 1.0 L* 0.8 L* 2.9 L Neutrophils # (Manual) 0.3 L* Not Reportable 1.2 L 04/25/24 14:44 WBC 3.8 L Neutrophils # (Manual) 1.6 He has been treated with Zosyn. He is also being treated with fluconazole for antifungal coverage. (5) Perforated bowel Impression: Postop day 1 Rosario's procedure for perforated sigmoid colon. Stoma is not functional. Is slightly more dusky than it looked immediately postoperatively. There is scant amount of clear fluid in the stoma bag. Discussed this AM with Dr Alexandra. She would favor hodling anticoagulation until POD #2/ Surgery will continue to follow (6) Acute kidney injury Impression: Acute kidney injury secondary to septic shock and multisystem organ failure. Creatinine 1.0 on admission trending upwards to 1.6. His potassium is stable and normal. He does not have any past medical history for renal dysfunction Laboratory Tests 04/24/24 04/24/24 04/25/24 07:45 16:45 04:30 Potassium 3.7 4.1 4.3 04/25/24 14:44 Potassium 4.4 (7) Shock liver Impression: Laboratory Tests 04/25/24 04/25/24 04:30 14:44 AST 226 H 259 H ALT 256 H 276 H Laboratory Tests 04/24/24 04/24/24 04/25/24 07:45 13:45 04:30 INR 2.4 H 1.7 H 2.4 H 04/25/24 14:44 INR 2.9 H Multisystem organ failure with elevation in transaminases. Patient has no si gnificant alcohol use history. His transaminases were normal upon admission and have increased markedly. His INR was initially elevated due to warfarin use. He was given PCC to acutely reverse his INR in preparation for exploratory laparotomy. Preoperatively his INR was 1.7 but has risen overnight likely due to impairment of coagulation function of his liver. (8) Diabetes Impression: reviewed last outpatient note. He is currently on metformin as an outpatient. His last A1c was 5.7. He is not extremely hyperglycemic upon admission. In the setting of acute illness we will watch his glucose and keep his blood sugar below 180 as needed with insulin.He is not currently on basal insulin. I have low sliding scale coverage for use as needed Selected Entries 04/24/24 04/25/24 04/25/24 20:40 00:00 06:00 Result (mg/dL) 132 116 115 04/25/24 11:59 Result (mg/dL) 116 (9) Primary myelofibrosis Impression: Discussed with Dr. Mark Cross at the [facility] oncology last night. He recommended holding these medications while the patient is critically ill. This should assist in his mounting of an immune response.on Fedratinib 400mg daily, and hydrea 2000mg daily. Bone marrow transplant has been deferred. Has pancytopenia related to this. Can transfuse as needed, and hold treatments for now to allow him to mount an immune response. Has splenomegaly, which per last oncology note 03/26, has decreased in size on last US 01/2024. (10) Hip osteoarthritis Impression: takes prednisone 10mg every other day for this. We will hold in the setting of acute illness, but be aware of the possibility of adrenal insufficiency in the setting of acute illness. I have started him on hydrocortisone stress dosing for adrenal insuffiency. Laboratory Tests 04/24/24 18:15 Random Cortisol 26.5
[2024-04-25] MEDS: FLUCONAZOLE 200 MG/100 ML 100 ML IV SCH (09:13)
--- NOTE | 2024-04-25 09:33 | XRAY Report ---
PROCEDURE: Chest 1V INDICATIONS: intubated TECHNIQUE: One view of the chest was acquired. COMPARISON: 04/24/2024. FINDINGS: Surgical changes and devices: Remote midline sternotomy. ET tube, NG tube, right PICC line are in sa tisfactory position.. Lungs and pleura: Elevated right hemidiaphragm. Probable bilateral pleural effusions and basilar ate lectasis. Mediastinum: Mediastinal contours appear normal. Heart size is normal. Bones and chest wall: No suspicious bony lesions. Overlying soft tissues appear unremarkable. IMPRESSION: 1. Lines and tubes in satisfactory position. 2. Probable bibasilar pleural effusions and atelectasis. Reviewed by: Bay Jain MD on 04/25/2024 9:31 AM PDT Approved by: Bay Jain MD on 04/25/2024 9:31 AM PDT Station ID: [id number]
[2024-04-25 09:54] LABS: ESTIMATED AVERAGE GLUCOSE 108 mg/dL (70-100); HEMOGLOBIN A1c% 5.4 % (4.27-6.07)
[2024-04-25] MEDS: DOBUTamine 500 MG/250 ML 500 MG/250 ML BAG IV SCH (10:41)
--- NOTE | 2024-04-25 13:54 | PROVIDER PROGRESS NOTE ---
Subjective - Subjective Subjective: pt intubated and on pressors Objective - Vital Signs/Intake & Output Vital Signs: Vital Signs x48h Temp Pulse Pulse Resp BP BP Pulse Ox 04/25/24 13:45 119 H 87/51 L 107/62 04/25/24 13:30 90/65 108/61 04/25/24 13:19 99 04/25/24 13:16 95 04/25/24 13:15 123 H 106/85 H 108/60 04/25/24 13:00 37.8 C 117 H 31 H 82/73 L 106/61 85 L 04/25/24 12:45 111 H 73/59 L 140/60 H 04/25/24 12:30 118 H 74/32 L 75/46 L 04/25/24 12:15 117 H 114/90 H 106/62 04/25/24 12:00 37.7 C 115 H 29 H 111/88 H 104/61 83 L 04/25/24 11:53 128 H 04/25/24 11:45 118 H 98/64 04/25/24 11:30 128 H 95/80 100/60 04/25/24 11:15 128 H 80/58 L 98/58 L 04/25/24 11:00 127 H 32 H 80/58 L 103/61 94 04/25/24 10:45 116 H 136/113 H 113/72 04/25/24 10:33 124 H 119/92 H 117/73 04/25/24 10:24 122 H 144/108 H 115/72 04/25/24 10:01 130 H 04/25/24 10:00 37.5 C 115 H 29 H 90/28 L 104/65 85 L 04/25/24 09:45 115 H 137/97 H 98/67 04/25/24 09:30 113 H 77/45 L 59/42 L 04/25/24 09:15 133 H 96/80 101/64 04/25/24 09:00 37.5 C 124 H 27 H 105/81 H 104/67 93 04/25/24 08:45 134 H 87/37 L 112/71 04/25/24 08:30 134 H 110/96 H 108/69 04/25/24 08:15 134 H 106/81 H 95/61 04/25/24 08:12 135 H 85/53 L 04/25/24 08:00 37.5 C 134 H 27 H 128/103 H 110/70 98 04/25/24 07:54 134 H 04/25/24 07:45 135 H 111/76 106/67 04/25/24 07:30 135 H 85/53 L 88/57 L 04/25/24 07:25 135 H 102/71 108/68 04/25/24 07:20 135 H 90/76 105/67 04/25/24 07:10 135 H 70/37 L 104/67 04/25/24 07:05 135 H 101/68 104/66 04/25/24 07:00 37.6 C 135 H 28 H 87/60 L 102/65 93 04/25/24 06:55 135 H 86/38 L 101/65 04/25/24 06:50 135 H 97/59 L 103/65 04/25/24 06:45 135 H 96/68 109/66 04/25/24 06:40 135 H 99/39 L 112/70 04/25/24 06:35 135 H 140/106 H 113/70 04/25/24 06:30 135 H 119/81 H 112/70 04/25/24 06:25 135 H 111/71 111/70 04/25/24 06:20 135 H 108/76 115/71 04/25/24 06:10 135 H 102/67 112/70 04/25/24 06:05 135 H 82/28 L 109/69 04/25/24 06:00 37.7 C 135 H 28 H 70/16 L 111/70 98 O2 Flow Rate 04/25/24 13:45 04/25/24 13:30 04/25/24 13:19 04/25/24 13:16 04/25/24 13:15 04/25/24 13:00 04/25/24 12:45 04/25/24 12:30 04/25/24 12:15 04/25/24 12:00 04/25/24 11:53 04/25/24 11:45 04/25/24 11:30 04/25/24 11:15 04/25/24 11:00 04/25/24 10:45 04/25/24 10:33 04/25/24 10:24 04/25/24 10:01 04/25/24 10:00 04/25/24 09:45 04/25/24 09:30 04/25/24 09:15 04/25/24 09:00 04/25/24 08:45 04/25/24 08:30 04/25/24 08:15 04/25/24 08:12 04/25/24 08:00 04/25/24 07:54 04/25/24 07:45 04/25/24 07:30 04/25/24 07:25 04/25/24 07:20 04/25/24 07:10 04/25/24 07:05 04/25/24 07:00 04/25/24 06:55 04/25/24 06:50 04/25/24 06:45 04/25/24 06:40 04/25/24 06:35 04/25/24 06:30 04/25/24 06:25 04/25/24 06:20 04/25/24 06:10 04/25/24 06:05 04/25/24 06:00 100 Intake & Output: Intake & Output 04/22/24 04/23/24 04/24/24 04/25/24 23:59 23:59 23:59 23:59 Intake Total 5605.213 5326.624 Output Total 258 929 Balance 5347.213 4397.624 - Objective General Appearance: positive: No acute distress, Other (on vent and sedated. appears comfortable) Abdomen: positive: No distention, Other (stoma pink and viable) - Lab Results Fish Bones: 04/25/24 04:30 04/25/24 04:30 Other Labs: Lab Results x24hrs 04/25/24 04/25/24 04/25/24 Range/Units 11:57 05:40 05:20 WBC (4.8-10.8) x10^3/uL RBC (4.70-6.10) 10^6/uL Hgb (14.0-18.0) g/dL Hct (42.0-52.0) % MCV (80.0-94.0) fL MCH (27.0-31.0) pg MCHC (32.0-36.0) g/dL RDW (12.0-15.0) % Plt Count (130-450) 10^3/uL MPV (7.4-11.4) fL Neut # (Auto) (1.5-6.6) 10^3/uL Lymph # (Auto) (1.5-3.5) 10^3/uL Lucas # (Auto) (0.0-1.0) 10^3/uL Eos # (Auto) (0.0-0.7) 10^3/uL Baso # (Auto) (0.0-0.1) 10^3/uL Absolute Nucleated RBC x10^3/uL Total Counted Band Neuts % (Manual) Abnorm Lymph % (Manual) Metamyelocytes % ( - 0) % Myelocytes % ( - 0) % Nucleated RBC % /100WBC Neutrophils # (Manual) Lymphocytes # (Manual) Monocytes # (Manual) Eosinophils # (Manual) Basophils # (Manual) Nucleated RBCs % Differential Comment Manual Slide Review Platelet Estimate (NORMAL) Platelet Morphology (NORMAL) RBC Morph Micro Appear (NORMAL) PT (9.9-12.6) secs INR (0.8-1.2) APTT (24.9-33.3) secs Bld Gas Analysis Time 0528 Sample Site A-LINE Patient Temperature CELSIUS ABG pH 7.36 (7.35-7.45) ABG pCO2 30 L (34-45) mmHg ABG pO2 75 L (80-100) mmHg ABG HCO3 16.6 L (22.0-26.0) mmol/L ABG Total CO2 17.5 L (21.0-29.0) MMOL/L ABG O2 Saturation 95 (94-98) % ABG Oximetry Spot Check % ABG Base Excess -7.8 L (-2.0-3.0) mmol/L Jeremy Test NOT APPLICABLE VBG pH (7.31-7.41) Ionized Calcium (1.15-1.33) mmol/L Respiration Rate 20 b/min O2 Delivery Device VENTILATOR Vent Mode ASSIST/CONTROL FiO2 60.00 Tidal Volume 450 mL PEEP 8 cmH2O Pressure Support Vent cmH2O EPAP cmH2O IPAP cmH2O Sodium (135-145) mmol/L Potassium (3.5-4.5) mmol/L Chloride (101-111) mmol/L Carbon Dioxide (21-32) mmol/L Anion Gap (6-13) BUN (6-20) mg/dL Creatinine (0.6-1.3) mg/dL Estimated GFR (MDRD) (>89) Glucose (74-104) mg/dL POC Whole Bld Glucose 116 H 115 H (70 - 100) mg/dL Estimat Average Glucose (70-100) mg/dL Hemoglobin A1c % (4.27-6.07) % Lactic Acid (0.5-2.2) mmol/L Calcium (8.5-10.3) mg/dL Phosphorus (2.5-5.0) mg/dL Magnesium (1.7-2.3) mg/dL Total Bilirubin (0.2-1.0) mg/dL AST (10-42) IU/L ALT (10-60) IU/L Alkaline Phosphatase (42-121) IU/L Total Protein (6.4-8.9) g/dL Albumin (3.2-5.5) g/dL Globulin (2.1-4.2) g/dL Albumin/Globulin Ratio (1.0-2.2) Vitamin B12 (180-914) pg/mL Folate (5.90 - >24.8) ng/mL Random Cortisol ug/dL Nasal Screen MRSA (PCR) (NEGATIVE) 04/25/24 04/25/24 04/25/24 Range/Units 04:30 04:30 04:30 WBC (4.8-10.8) x10^3/uL RBC (4.70-6.10) 10^6/uL Hgb (14.0-18.0) g/dL Hct (42.0-52.0) % MCV (80.0-94.0) fL MCH (27.0-31.0) pg MCHC (32.0-36.0) g/dL RDW (12.0-15.0) % Plt Count (130-450) 10^3/uL MPV (7.4-11.4) fL Neut # (Auto) (1.5-6.6) 10^3/uL Lymph # (Auto) (1.5-3.5) 10^3/uL Lucas # (Auto) (0.0-1.0) 10^3/uL Eos # (Auto) (0.0-0.7) 10^3/uL Baso # (Auto) (0.0-0.1) 10^3/uL Absolute Nucleated RBC x10^3/uL Total Counted Band Neuts % (Manual) Abnorm Lymph % (Manual) Metamyelocytes % ( - 0) % Myelocytes % ( - 0) % Nucleated RBC % /100WBC Neutrophils # (Manual) Lymphocytes # (Manual) Monocytes # (Manual) Eosinophils # (Manual) Basophils # (Manual) Nucleated RBCs % Differential Comment Manual Slide Review Platelet Estimate (NORMAL) Platelet Morphology (NORMAL) RBC Morph Micro Appear (NORMAL) PT (9.9-12.6) secs INR (0.8-1.2) APTT (24.9-33.3) secs Bld Gas Analysis Time Sample Site Patient Temperature CELSIUS ABG pH (7.35-7.45) ABG pCO2 (34-45) mmHg ABG pO2 (80-100) mmHg ABG HCO3 (22.0-26.0) mmol/L ABG Total CO2 (21.0-29.0) MMOL/L ABG O2 Saturation (94-98) % ABG Oximetry Spot Check % ABG Base Excess (-2.0-3.0) mmol/L Jeremy Test VBG pH 7.185 L* (7.31-7.41) Ionized Calcium 1.00 L (1.15-1.33) mmol/L Respiration Rate b/min O2 Delivery Device Vent Mode FiO2 Tidal Volume mL PEEP cmH2O Pressure Support Vent cmH2O EPAP cmH2O IPAP cmH2O Sodium (135-145) mmol/L Potassium (3.5-4.5) mmol/L Chloride (101-111) mmol/L Carbon Dioxide (21-32) mmol/L Anion Gap (6-13) BUN (6-20) mg/dL Creatinine (0.6-1.3) mg/dL Estimated GFR (MDRD) (>89) Glucose (74-104) mg/dL POC Whole Bld Glucose (70 - 100) mg/dL Estimat Average Glucose 108 H (70-100) mg/dL Hemoglobin A1c % 5.4 (4.27-6.07) % Lactic Acid (0.5-2.2) mmol/L Calcium (8.5-10.3) mg/dL Phosphorus (2.5-5.0) mg/dL Magnesium (1.7-2.3) mg/dL Total Bilirubin (0.2-1.0) mg/dL AST (10-42) IU/L ALT (10-60) IU/L Alkaline Phosphatase (42-121) IU/L Total Protein (6.4-8.9) g/dL Albumin (3.2-5.5) g/dL Globulin (2.1-4.2) g/dL Albumin/Globulin Ratio (1.0-2.2) Vitamin B12 2092 H (180-914) pg/mL Folate 22.6 (5.90 - >24.8) ng/mL Random Cortisol ug/dL Nasal Screen MRSA (PCR) (NEGATIVE) 04/25/24 04/25/24 04/25/24 Range/Units 04:30 04:30 04:30 WBC 2.9 L (4.8-10.8) x10^3/uL RBC 2.19 L (4.70-6.10) 10^6/uL Hgb 9.9 L (14.0-18.0) g/dL Hct 30.5 L (42.0-52.0) % MCV 139.3 H (80.0-94.0) fL MCH 45.2 H (27.0-31.0) pg MCHC 32.5 (32.0-36.0) g/dL RDW 16.5 H (12.0-15.0) % Plt Count 271 (130-450) 10^3/uL MPV 10.5 (7.4-11.4) fL Neut # (Auto) Not Reportable (1.5-6.6) 10^3/uL Lymph # (Auto) Not Reportable (1.5-3.5) 10^3/uL Lucas # (Auto) Not Reportable (0.0-1.0) 10^3/uL Eos # (Auto) Not Reportable (0.0-0.7) 10^3/uL Baso # (Auto) Not Reportable (0.0-0.1) 10^3/uL Absolute Nucleated RBC Not Reportable x10^3/uL Total Counted 100 Band Neuts % (Manual) 2 Abnorm Lymph % (Manual) 3 Metamyelocytes % 1 H ( - 0) % Myelocytes % 1 H ( - 0) % Nucleated RBC % Not Reportable /100WBC Neutrophils # (Manual) 1.2 L Lymphocytes # (Manual) 1.5 Monocytes # (Manual) 0.2 Eosinophils # (Manual) 0.0 Basophils # (Manual) 0.0 Nucleated RBCs 2 % Differential Comment MANUAL DIFFERENTIAL Manual Slide Review Platelet Estimate NORMAL (130-450,000) (NORMAL) Platelet Morphology (NORMAL) RBC Morph Micro Appear 3+ MACROCYTOSIS (NORMAL) PT 25.4 H (9.9-12.6) secs INR 2.4 H (0.8-1.2) APTT (24.9-33.3) secs Bld Gas Analysis Time Sample Site Patient Temperature CELSIUS ABG pH (7.35-7.45) ABG pCO2 (34-45) mmHg ABG pO2 (80-100) mmHg ABG HCO3 (22.0-26.0) mmol/L ABG Total CO2 (21.0-29.0) MMOL/L ABG O2 Saturation (94-98) % ABG Oximetry Spot Check % ABG Base Excess (-2.0-3.0) mmol/L Jeremy Test VBG pH (7.31-7.41) Ionized Calcium (1.15-1.33) mmol/L Respiration Rate b/min O2 Delivery Device Vent Mode FiO2 Tidal Volume mL PEEP cmH2O Pressure Support Vent cmH2O EPAP cmH2O IPAP cmH2O Sodium 142 (135-145) mmol/L Potassium 4.3 (3.5-4.5) mmol/L Chloride 112 H (101-111) mmol/L Carbon Dioxide 19 L (21-32) mmol/L Anion Gap 11.0 (6-13) BUN 33 H (6-20) mg/dL Creatinine 1.6 H (0.6-1.3) mg/dL Estimated GFR (MDRD) 42 L (>89) Glucose 117 H (74-104) mg/dL POC Whole Bld Glucose (70 - 100) mg/dL Estimat Average Glucose (70-100) mg/dL Hemoglobin A1c % (4.27-6.07) % Lactic Acid (0.5-2.2) mmol/L Calcium 7.8 L (8.5-10.3) mg/dL Phosphorus 4.2 (2.5-5.0) mg/dL Magnesium 1.7 (1.7-2.3) mg/dL Total Bilirubin 0.5 (0.2-1.0) mg/dL AST 226 H (10-42) IU/L ALT 256 H (10-60) IU/L Alkaline Phosphatase 54 (42-121) IU/L Total Protein 4.6 L (6.4-8.9) g/dL Albumin 3.2 (3.2-5.5) g/dL Globulin 1.4 L (2.1-4.2) g/dL Albumin/Globulin Ratio 2.3 H (1.0-2.2) Vitamin B12 (180-914) pg/mL Folate (5.90 - >24.8) ng/mL Random Cortisol ug/dL Nasal Screen MRSA (PCR) (NEGATIVE) 04/25/24 04/25/24 04/24/24 Range/Units 02:55 00:30 23:42 WBC (4.8-10.8) x10^3/uL RBC (4.70-6.10) 10^6/uL Hgb (14.0-18.0) g/dL Hct (42.0-52.0) % MCV (80.0-94.0) fL MCH (27.0-31.0) pg MCHC (32.0-36.0) g/dL RDW (12.0-15.0) % Plt Count (130-450) 10^3/uL MPV (7.4-11.4) fL Neut # (Auto) (1.5-6.6) 10^3/uL Lymph # (Auto) (1.5-3.5) 10^3/uL Lucas # (Auto) (0.0-1.0) 10^3/uL Eos # (Auto) (0.0-0.7) 10^3/uL Baso # (Auto) (0.0-0.1) 10^3/uL Absolute Nucleated RBC x10^3/uL Total Counted Band Neuts % (Manual) Abnorm Lymph % (Manual) Metamyelocytes % ( - 0) % Myelocytes % ( - 0) % Nucleated RBC % /100WBC Neutrophils # (Manual) Lymphocytes # (Manual) Monocytes # (Manual) Eosinophils # (Manual) Basophils # (Manual) Nucleated RBCs % Differential Comment Manual Slide Review Platelet Estimate (NORMAL) Platelet Morphology (NORMAL) RBC Morph Micro Appear (NORMAL) PT (9.9-12.6) secs INR (0.8-1.2) APTT (24.9-33.3) secs Bld Gas Analysis Time 0302 6922 Sample Site A-LINE A-LINE Patient Temperature CELSIUS ABG pH 7.34 L 7.34 L (7.35-7.45) ABG pCO2 30 L 30 L (34-45) mmHg ABG pO2 122 H 86 (80-100) mmHg ABG HCO3 16.1 L 15.9 L (22.0-26.0) mmol/L ABG Total CO2 17.0 L 16.8 L (21.0-29.0) MMOL/L ABG O2 Saturation 98 96 (94-98) % ABG Oximetry Spot Check % ABG Base Excess -8.6 L -8.9 L (-2.0-3.0) mmol/L Jeremy Test NOT APPLICABLE NOT APPLICABLE VBG pH (7.31-7.41) Ionized Calcium (1.15-1.33) mmol/L Respiration Rate 16 b/min O2 Delivery Device VENTILATOR VENTILATOR Vent Mode FiO2 100.00 100.00 Tidal Volume mL PEEP 10 10 cmH2O Pressure Support Vent 16 16 cmH2O EPAP 10 10 cmH2O IPAP 15 15 cmH2O Sodium (135-145) mmol/L Potassium (3.5-4.5) mmol/L Chloride (101-111) mmol/L Carbon Dioxide (21-32) mmol/L Anion Gap (6-13) BUN (6-20) mg/dL Creatinine (0.6-1.3) mg/dL Estimated GFR (MDRD) (>89) Glucose (74-104) mg/dL POC Whole Bld Glucose 116 H (70 - 100) mg/dL Estimat Average Glucose (70-100) mg/dL Hemoglobin A1c % (4.27-6.07) % Lactic Acid (0.5-2.2) mmol/L Calcium (8.5-10.3) mg/dL Phosphorus (2.5-5.0) mg/dL Magnesium (1.7-2.3) mg/dL Total Bilirubin (0.2-1.0) mg/dL AST (10-42) IU/L ALT (10-60) IU/L Alkaline Phosphatase (42-121) IU/L Total Protein (6.4-8.9) g/dL Albumin (3.2-5.5) g/dL Globulin (2.1-4.2) g/dL Albumin/Globulin Ratio (1.0-2.2) Vitamin B12 (180-914) pg/mL Folate (5.90 - >24.8) ng/mL Random Cortisol ug/dL Nasal Screen MRSA (PCR) (NEGATIVE) 04/24/24 04/24/24 04/24/24 Range/Units 21:35 20:37 18:50 WBC (4.8-10.8) x10^3/uL RBC (4.70-6.10) 10^6/uL Hgb (14.0-18.0) g/dL Hct (42.0-52.0) % MCV (80.0-94.0) fL MCH (27.0-31.0) pg MCHC (32.0-36.0) g/dL RDW (12.0-15.0) % Plt Count (130-450) 10^3/uL MPV (7.4-11.4) fL Neut # (Auto) (1.5-6.6) 10^3/uL Lymph # (Auto) (1.5-3.5) 10^3/uL Lucas # (Auto) (0.0-1.0) 10^3/uL Eos # (Auto) (0.0-0.7) 10^3/uL Baso # (Auto) (0.0-0.1) 10^3/uL Absolute Nucleated RBC x10^3/uL Total Counted Band Neuts % (Manual) Abnorm Lymph % (Manual) Metamyelocytes % ( - 0) % Myelocytes % ( - 0) % Nucleated RBC % /100WBC Neutrophils # (Manual) Lymphocytes # (Manual) Monocytes # (Manual) Eosinophils # (Manual) Basophils # (Manual) Nucleated RBCs % Differential Comment Manual Slide Review Platelet Estimate (NORMAL) Platelet Morphology (NORMAL) RBC Morph Micro Appear (NORMAL) PT (9.9-12.6) secs INR (0.8-1.2) APTT (24.9-33.3) secs Bld Gas Analysis Time 9999 8391 Sample Site A-LINE A-LINE Patient Temperature CELSIUS ABG pH 7.31 L 7.22 L (7.35-7.45) ABG pCO2 34 40 (34-45) mmHg ABG pO2 57 L 55 L (80-100) mmHg ABG HCO3 16.7 L 16.1 L (22.0-26.0) mmol/L ABG Total CO2 17.8 L 17.3 L (21.0-29.0) MMOL/L ABG O2 Saturation 89 L 84 L* (94-98) % ABG Oximetry Spot Check % ABG Base Excess -8.6 L -10.9 L (-2.0-3.0) mmol/L Jeremy Test NOT APPLICABLE NOT APPLICABLE VBG pH (7.31-7.41) Ionized Calcium (1.15-1.33) mmol/L Respiration Rate 20 b/min O2 Delivery Device VENTILATOR VENTILATOR Vent Mode ASSIST/CONTROL FiO2 100.00 100.00 Tidal Volume 650 mL PEEP cmH2O Pressure Support Vent 10 cmH2O EPAP 10 cmH2O IPAP 15 cmH2O Sodium (135-145) mmol/L Potassium (3.5-4.5) mmol/L Chloride (101-111) mmol/L Carbon Dioxide (21-32) mmol/L Anion Gap (6-13) BUN (6-20) mg/dL Creatinine (0.6-1.3) mg/dL Estimated GFR (MDRD) (>89) Glucose (74-104) mg/dL POC Whole Bld Glucose 132 H (70 - 100) mg/dL Estimat Average Glucose (70-100) mg/dL Hemoglobin A1c % (4.27-6.07) % Lactic Acid (0.5-2.2) mmol/L Calcium (8.5-10.3) mg/dL Phosphorus (2.5-5.0) mg/dL Magnesium (1.7-2.3) mg/dL Total Bilirubin (0.2-1.0) mg/dL AST (10-42) IU/L ALT (10-60) IU/L Alkaline Phosphatase (42-121) IU/L Total Protein (6.4-8.9) g/dL Albumin (3.2-5.5) g/dL Globulin (2.1-4.2) g/dL Albumin/Globulin Ratio (1.0-2.2) Vitamin B12 (180-914) pg/mL Folate (5.90 - >24.8) ng/mL Random Cortisol ug/dL Nasal Screen MRSA (PCR) (NEGATIVE) 04/24/24 04/24/24 04/24/24 Range/Units 18:15 18:15 17:56 WBC (4.8-10.8) x10^3/uL RBC (4.70-6.10) 10^6/uL Hgb (14.0-18.0) g/dL Hct (42.0-52.0) % MCV (80.0-94.0) fL MCH (27.0-31.0) pg MCHC (32.0-36.0) g/dL RDW (12.0-15.0) % Plt Count (130-450) 10^3/uL MPV (7.4-11.4) fL Neut # (Auto) (1.5-6.6) 10^3/uL Lymph # (Auto) (1.5-3.5) 10^3/uL Lucas # (Auto) (0.0-1.0) 10^3/uL Eos # (Auto) (0.0-0.7) 10^3/uL Baso # (Auto) (0.0-0.1) 10^3/uL Absolute Nucleated RBC x10^3/uL Total Counted Band Neuts % (Manual) Abnorm Lymph % (Manual) Metamyelocytes % ( - 0) % Myelocytes % ( - 0) % Nucleated RBC % /100WBC Neutrophils # (Manual) Lymphocytes # (Manual) Monocytes # (Manual) Eosinophils # (Manual) Basophils # (Manual) Nucleated RBCs % Differential Comment Manual Slide Review Platelet Estimate (NORMAL) Platelet Morphology (NORMAL) RBC Morph Micro Appear (NORMAL) PT (9.9-12.6) secs INR (0.8-1.2) APTT (24.9-33.3) secs Bld Gas Analysis Time Sample Site Patient Temperature CELSIUS ABG pH (7.35-7.45) ABG pCO2 (34-45) mmHg ABG pO2 (80-100) mmHg ABG HCO3 (22.0-26.0) mmol/L ABG Total CO2 (21.0-29.0) MMOL/L ABG O2 Saturation (94-98) % ABG Oximetry Spot Check % ABG Base Excess (-2.0-3.0) mmol/L Jeremy Test VBG pH (7.31-7.41) Ionized Calcium (1.15-1.33) mmol/L Respiration Rate b/min O2 Delivery Device Vent Mode FiO2 Tidal Volume mL PEEP cmH2O Pressure Support Vent cmH2O EPAP cmH2O IPAP cmH2O Sodium (135-145) mmol/L Potassium (3.5-4.5) mmol/L Chloride (101-111) mmol/L Carbon Dioxide (21-32) mmol/L Anion Gap (6-13) BUN (6-20) mg/dL Creatinine (0.6-1.3) mg/dL Estimated GFR (MDRD) (>89) Glucose (74-104) mg/dL POC Whole Bld Glucose 136 H (70 - 100) mg/dL Estimat Average Glucose (70-100) mg/dL Hemoglobin A1c % (4.27-6.07) % Lactic Acid 2.1 (0.5-2.2) mmol/L Calcium (8.5-10.3) mg/dL Phosphorus (2.5-5.0) mg/dL Magnesium (1.7-2.3) mg/dL Total Bilirubin (0.2-1.0) mg/dL AST (10-42) IU/L ALT (10-60) IU/L Alkaline Phosphatase (42-121) IU/L Total Protein (6.4-8.9) g/dL Albumin (3.2-5.5) g/dL Globulin (2.1-4.2) g/dL Albumin/Globulin Ratio (1.0-2.2) Vitamin B12 (180-914) pg/mL Folate (5.90 - >24.8) ng/mL Random Cortisol 26.5 ug/dL Nasal Screen MRSA (PCR) (NEGATIVE) 04/24/24 04/24/24 04/24/24 Range/Units 17:50 16:45 16:45 WBC (4.8-10.8) x10^3/uL RBC (4.70-6.10) 10^6/uL Hgb (14.0-18.0) g/dL Hct (42.0-52.0) % MCV (80.0-94.0) fL MCH (27.0-31.0) pg MCHC (32.0-36.0) g/dL RDW (12.0-15.0) % Plt Count (130-450) 10^3/uL MPV (7.4-11.4) fL Neut # (Auto) (1.5-6.6) 10^3/uL Lymph # (Auto) (1.5-3.5) 10^3/uL Lucas # (Auto) (0.0-1.0) 10^3/uL Eos # (Auto) (0.0-0.7) 10^3/uL Baso # (Auto) (0.0-0.1) 10^3/uL Absolute Nucleated RBC x10^3/uL Total Counted Band Neuts % (Manual) Abnorm Lymph % (Manual) Metamyelocytes % ( - 0) % Myelocytes % ( - 0) % Nucleated RBC % /100WBC Neutrophils # (Manual) Lymphocytes # (Manual) Monocytes # (Manual) Eosinophils # (Manual) Basophils # (Manual) Nucleated RBCs % Differential Comment Manual Slide Review Platelet Estimate (NORMAL) Platelet Morphology (NORMAL) RBC Morph Micro Appear (NORMAL) PT (9.9-12.6) secs INR (0.8-1.2) APTT (24.9-33.3) secs Bld Gas Analysis Time 1653 Sample Site Patient Temperature 36.0 CELSIUS ABG pH 7.05 L* (7.35-7.45) ABG pCO2 66 H* (34-45) mmHg ABG pO2 62 L (80-100) mmHg ABG HCO3 17.7 L (22.0-26.0) mmol/L ABG Total CO2 19.7 L (21.0-29.0) MMOL/L ABG O2 Saturation 79 L* (94-98) % ABG Oximetry Spot Check 100 % ABG Base Excess -12.7 L (-2.0-3.0) mmol/L Jeremy Test NOT APPLICABLE VBG pH (7.31-7.41) Ionized Calcium (1.15-1.33) mmol/L Respiration Rate b/min O2 Delivery Device Vent Mode FiO2 Tidal Volume mL PEEP cmH2O Pressure Support Vent cmH2O EPAP cmH2O IPAP cmH2O Sodium 140 (135-145) mmol/L Potassium 4.1 (3.5-4.5) mmol/L Chloride 115 H (101-111) mmol/L Carbon Dioxide 22 (21-32) mmol/L Anion Gap 3.0 L (6-13) BUN 27 H (6-20) mg/dL Creatinine 1.0 (0.6-1.3) mg/dL Estimated GFR (MDRD) 73 L (>89) Glucose 167 H (74-104) mg/dL POC Whole Bld Glucose (70 - 100) mg/dL Estimat Average Glucose (70-100) mg/dL Hemoglobin A1c % (4.27-6.07) % Lactic Acid (0.5-2.2) mmol/L Calcium 7.7 L (8.5-10.3) mg/dL Phosphorus (2.5-5.0) mg/dL Magnesium (1.7-2.3) mg/dL Total Bilirubin 0.5 (0.2-1.0) mg/dL AST 15 (10-42) IU/L ALT 16 (10-60) IU/L Alkaline Phosphatase 64 (42-121) IU/L Total Protein 4.6 L (6.4-8.9) g/dL Albumin 3.0 L (3.2-5.5) g/dL Globulin 1.6 L (2.1-4.2) g/dL Albumin/Globulin Ratio 1.9 (1.0-2.2) Vitamin B12 (180-914) pg/mL Folate (5.90 - >24.8) ng/mL Random Cortisol ug/dL Nasal Screen MRSA (PCR) NEGATIVE (NEGATIVE) 04/24/24 04/24/24 04/24/24 Range/Units 16:45 13:45 13:45 WBC 0.8 L* (4.8-10.8) x10^3/uL RBC 2.07 L (4.70-6.10) 10^6/uL Hgb 9.0 L (14.0-18.0) g/dL Hct 28.6 L (42.0-52.0) % MCV 138.2 H (80.0-94.0) fL MCH 43.5 H (27.0-31.0) pg MCHC 31.5 L (32.0-36.0) g/dL RDW 15.9 H (12.0-15.0) % Plt Count 446 (130-450) 10^3/uL MPV 9.2 (7.4-11.4) fL Neut # (Auto) 0.4 L* (1.5-6.6) 10^3/uL Lymph # (Auto) 0.2 L (1.5-3.5) 10^3/uL Lucas # (Auto) 0.2 (0.0-1.0) 10^3/uL Eos # (Auto) 0.0 (0.0-0.7) 10^3/uL Baso # (Auto) 0.0 (0.0-0.1) 10^3/uL Absolute Nucleated RBC 0.02 x10^3/uL Total Counted Band Neuts % (Manual) Not Reportable Abnorm Lymph % (Manual) Not Reportable Metamyelocytes % ( - 0) % Myelocytes % ( - 0) % Nucleated RBC % 2.4 /100WBC Neutrophils # (Manual) Not Reportable Lymphocytes # (Manual) Not Reportable Monocytes # (Manual) Not Reportable Eosinophils # (Manual) Not Reportable Basophils # (Manual) Not Reportable Nucleated RBCs % Differential Comment MANUAL=AUTO DIFF Manual Slide Review Indicated Platelet Estimate NORMAL (130-450,000) (NORMAL) Platelet Morphology NORMAL APPEARANCE (NORMAL) RBC Morph Micro Appear 1+ HYPOCHROMASIA (NORMAL) PT 18.1 H (9.9-12.6) secs INR 1.7 H (0.8-1.2) APTT 23.9 L (24.9-33.3) secs Bld Gas Analysis Time Sample Site Patient Temperature CELSIUS ABG pH (7.35-7.45) ABG pCO2 (34-45) mmHg ABG pO2 (80-100) mmHg ABG HCO3 (22.0-26.0) mmol/L ABG Total CO2 (21.0-29.0) MMOL/L ABG O2 Saturation (94-98) % ABG Oximetry Spot Check % ABG Base Excess (-2.0-3.0) mmol/L Jeremy Test VBG pH (7.31-7.41) Ionized Calcium (1.15-1.33) mmol/L Respiration Rate b/min O2 Delivery Device Vent Mode FiO2 Tidal Volume mL PEEP cmH2O Pressure Support Vent cmH2O EPAP cmH2O IPAP cmH2O Sodium (135-145) mmol/L Potassium (3.5-4.5) mmol/L Chloride (101-111) mmol/L Carbon Dioxide (21-32) mmol/L Anion Gap (6-13) BUN (6-20) mg/dL Creatinine (0.6-1.3) mg/dL Estimated GFR (MDRD) (>89) Glucose (74-104) mg/dL POC Whole Bld Glucose (70 - 100) mg/dL Estimat Average Glucose (70-100) mg/dL Hemoglobin A1c % (4.27-6.07) % Lactic Acid 2.6 H (0.5-2.2) mmol/L Calcium (8.5-10.3) mg/dL Phosphorus (2.5-5.0) mg/dL Magnesium (1.7-2.3) mg/dL Total Bilirubin (0.2-1.0) mg/dL AST (10-42) IU/L ALT (10-60) IU/L Alkaline Phosphatase (42-121) IU/L Total Protein (6.4-8.9) g/dL Albumin (3.2-5.5) g/dL Globulin (2.1-4.2) g/dL Albumin/Globulin Ratio (1.0-2.2) Vitamin B12 (180-914) pg/mL Folate (5.90 - >24.8) ng/mL Random Cortisol ug/dL Nasal Screen MRSA (PCR) (NEGATIVE) Sepsis Event Note (H) - Evaluation Current Stage of Sepsis: Septic shock Possible source of Sepsis: positive: GI tract/intra-abdominal - Sepsis Criteria Sepsis Criteria: Recorded Temperature greater than 38.3C or Less than 36C, Recorded Heart Rate greater than 90 bpm, Respiratory: Increasing oxygen requirements, WBC count greater than 12,000 or less than 4000, MAP less than 65 mmHg, Metabolic: lactate > 2 mmol/L Assessment/Plan - Problem List (1) Perforated bowel Impression: critically ill. continue bowel rest today. ok to have meds down the og tube and clamp for an hour
[2024-04-25 14:51] LABS: BASOPHILS % (AUTO) 0.5 %; HCT - HEMATOCRIT 24.6 % (42.0-52.0); HGB - HEMOGLOBIN 8.3 g/dL (14.0-18.0); LYMPHOCYTES % (AUTO) 21.3 %; MEAN CORPUSCULAR HEMOGLOBIN 44.4 pg (27.0-31.0); MEAN CORPUSCULAR HGB CONC 33.7 g/dL (32.0-36.0); MEAN CORPUSCULAR VOLUME 131.6 fL (80.0-94.0); MEAN PLATELET VOLUME 10.7 fL (7.4-11.4); MONOCYTES % (AUTO) 13.9 %; NEUTROPHILS % (AUTO) 52.5 %; PLT - PLATELET COUNT 206 10^3/uL (130-450); RED BLOOD COUNT 1.87 10^6/uL (4.70-6.10); RED CELL DISTRIBUTION WIDTH 16.2 % (12.0-15.0); WHITE BLOOD COUNT 3.8 x10^3/uL (4.8-10.8)
[2024-04-25 14:55] LABS: ABNORMAL LYMPHS % (MANUAL) 0 %
[2024-04-25 14:58] LABS: INR 2.9 (0.8-1.2); PT - PROTHROMBIN TIME 29.1 secs (9.9-12.6)
[2024-04-25 15:04] LABS: ALBUMIN 2.7 g/dL (3.2-5.5); ALBUMIN/GLOBULIN RATIO 2.1 (1.0-2.2); BILIRUBIN,TOTAL 0.5 mg/dL (0.2-1.0); CALCIUM 6.9 mg/dL (8.5-10.3); CREATININE 1.6 mg/dL (0.6-1.3); POTASSIUM 4.4 mmol/L (3.5-4.5)
[2024-04-25] MEDS: ACETAMINOPHEN 1,000 MG/100 ML 1,000 MG/100 ML BAG IV PRN (15:14)
[2024-04-25] MEDS ORDERED: ZINC OXIDE 20% OINT 30 GM TUBE TOP PRN (15:20)
[2024-04-25] MEDS ORDERED: MIN OIL/DIMETHICON/COCONUT OIL 92 GM TUBE TOP PRN (15:20)
[2024-04-25 16:14] LABS: BAND NEUTROPHILS % (MANUAL) 12 %; LYMPHOCYTES # (MANUAL) 1.1 10^3/uL (1.5-3.5); LYMPHOCYTES % (MANUAL) 28 %; METAMYELOCYTES % (MANUAL) 7 %; MONOCYTES # (MANUAL) 0.7 10^3/uL (0.0-1.0); MYELOCYTES % (MANUAL) 3 %; NEUTROPHILS # (MANUAL) 1.6 10^3/uL (1.5-6.6)
[2024-04-25 16:16] LABS: DIFFERENTIAL COMMENT MANUAL DIFFERENTIAL; PLATELET ESTIMATE, MANUAL NORMAL (130-450,000) (NORMAL); PLATELET MORPHOLOGY NORMAL APPEARANCE (NORMAL)
[2024-04-25] MEDS: fentaNYL 2,500 MCG in SODIUM CHLORIDE 0.9% 200 ML IV SCH (17:51)
--- NOTE | 2024-04-25 17:53 | ADVANCE CARE PLANNING NOTE ---
Advance Care Planning - Planning Encounter Date: 04/25/24 Time: 10:30 Purpose: determine goals of care in acute severe illness. Parties in Attendance: Niurka and Elham Webber PA-C. Patient is intubated and sedated. Decisional Capacity of the Patient: not able to participate - Encounter Subjective/Patient's Story: Patient was in his usual state of health until several hours before presentation to the ED. he is a retired educator. He and his walk daily. They enjoy walking outside. They have been for 50 years. he uses a cane or treking poles. They have 2 sons, in their 40's, who live in [place] and [place]. Objective/Medical Story: Primary myelofibrosis. Recently decided against Bone marrow transplant this spring. His current therapy for his myelofibrosis is working. His oncologist gave him 10 years at the longest with this diagnosis and he is and his are satisfied with this plan.He is cared for at [facility] for this diagnosis. He also has severe hip osteoarthritis and recent Khang got outpatient clearance for hip replacement surgery. This was an acute illness that came on quite suddenly. He was in his normal state of health the evening before. That day he had walked a mile with his as they normally do. He got up in the morning had severe abdominal pain was taken to the emergency department by ambulance at which point his bowel perforation was discovered. He quickly declined with respiratory failure although at the time that he presented to the emergency department he had no respiratory complaints. He is at that this time showing signs of multisystem organ failure and we are providing supportive care. Goals of Care: To be able to return home to live independently with his .At this time the difficult decisions that must be made are looking into the future and trying to decide if he will be able to return home and live independently with his Plan: long discussion with regarding GOC. She states that he has said that he would never want to live in a care facility. The concern is that as complications of this acute iillness mount, his ability to recover will decrease. It is for this reason, that for the time being, we will continue to support him. we will offer respiratory support, and help wtih r ecovery from his respiratory failure and his sepsis. At the point that he needs dialysis/CRRT, the severity of his illness would indicate that his ability to recover from this illness to a level that would be satisfactory to him would be highly unlikely. I have checked in with with a progress report this afternoon. If goals of care change, and patient needed more support than we can offer for something such as renal failure, we would revisit discussion with family. IT is posssible that at this point, we would transition to palliative/comfort focused care vs aggressive resuscitation. Additional Discussion: At this time patient will remain full code and full care. Should he go into cardiac arrest we will make all efforts to resuscitate him. If he fails to improve from this period of severe and acute illness likely would not pursue renal dialysis or CRRT. Code Status: Attempt Resuscitation Time spent on advance care plannin
[2024-04-25] MEDS: SODIUM BICARBONATE 150 MEQ in DEXTROSE 5% 1,000 ML IV SCH (18:14)
--- NOTE | 2024-04-25 21:02 | PROVIDER PROGRESS NOTE ---
Receivable Manager Note - Receivable Manager Note Receivable Manager Note: restraints renewed after discussing with OSMANY Myers
[2024-04-25] MEDS: CHLORHEXIDINE GLUCONATE 15 ML UDC PO SCH (21:49)
[2024-04-26] MEDS ORDERED: PHENYLEPHRINE 10 MG/ML VIAL ONE (03:29)
[2024-04-26 04:51] LABS: MAGNESIUM 1.6 mg/dL (1.7-2.3)
[2024-04-26 04:57] LABS: PHOSPHORUS 5.2 mg/dL (2.5-5.0)
[2024-04-26 04:58] LABS: BASOPHILS % (AUTO) 0.6 %; HGB - HEMOGLOBIN 7.6 g/dL (14.0-18.0); LYMPHOCYTES % (AUTO) 7.7 %; MEAN CORPUSCULAR HEMOGLOBIN 43.7 pg (27.0-31.0); MEAN CORPUSCULAR VOLUME 132.2 fL (80.0-94.0); MEAN PLATELET VOLUME 11.9 fL (7.4-11.4); MONOCYTES % (AUTO) 11.8 %; NEUTROPHILS % (AUTO) 79.7 %; PLT - PLATELET COUNT 184 10^3/uL (130-450); RED BLOOD COUNT 1.74 10^6/uL (4.70-6.10); RED CELL DISTRIBUTION WIDTH 16.3 % (12.0-15.0); WHITE BLOOD COUNT 4.7 x10^3/uL (4.8-10.8)
[2024-04-26 05:07] LABS: CALCIUM 6.9 mg/dL (8.5-10.3); CREATININE 1.9 mg/dL (0.6-1.3)
[2024-04-26 05:08] LABS: ABNORMAL LYMPHS % (MANUAL) 0 %
[2024-04-26 05:31] LABS: ABG PCO2 36 mmHg (34-45); ABG PH 7.38 (7.35-7.45); ABG PO2 86 mmHg (80-100)
[2024-04-26 05:32] LABS: ABG BASE EXCESS -4.1 mmol/L (-2.0-3.0); ABG HCO3 20.6 mmol/L (22.0-26.0); ABG MODE OF VENTILATION ASSIST/CONTROL; ABG OXYGEN SATURATION 96 % (94-98); ABG RESPIRATORY RATE 20 b/min; ABG TCO2 21.7 MMOL/L (21.0-29.0)
[2024-04-26] MEDS ORDERED: CARBOXYMETHYLCELLULOSE OPHTH DROPS EACHEYE PRN (05:37)
[2024-04-26 05:39] LABS: PT - PROTHROMBIN TIME 21.3 secs (9.9-12.6)
[2024-04-26 05:47] LABS: BAND NEUTROPHILS % (MANUAL) 9 %; DIFFERENTIAL COMMENT MANUAL DIFFERENTIAL; LYMPHOCYTES # (MANUAL) 0.6 10^3/uL (1.5-3.5); LYMPHOCYTES % (MANUAL) 12 %; MONOCYTES # (MANUAL) 0.4 10^3/uL (0.0-1.0); NEUTROPHILS # (MANUAL) 3.7 10^3/uL (1.5-6.6)
[2024-04-26 05:48] LABS: PLATELET ESTIMATE, MANUAL NORMAL (130-450,000) (NORMAL)
--- NOTE | 2024-04-26 09:06 | XRAY Report ---
PROCEDURE: Chest 1V INDICATIONS: intubated TECHNIQUE: One view of the chest was acquired. COMPARISON: None. FINDINGS: Surgical changes and devices: ET tube, NG tube, PICC line in satisfactory position. Remote midline s ternotomy.. Lungs and pleura: Bilateral pleural effusions, bibasilar atelectasis, pulmonary edema. Mediastinum: Mediastinal contours appear normal. Cardiomegaly. Bones and chest wall: No suspicious bony lesions. Overlying soft tissues appear unremarkable. IMPRESSION: 1. Lines and tubes in satisfactory position. 2. Congestive heart failure exacerbation Reviewed by: Bay Jain MD on 04/26/2024 9:05 AM PDT Approved by: Bay Jain MD on 04/26/2024 9:05 AM PDT Station ID: [id number]
[2024-04-26] MEDS: NOREPINEPHRINE IV SCH (10:00)
[2024-04-26] MEDS: DEXTROSE 5% IV SCH (10:00)
[2024-04-26] MEDS ORDERED: VASOPRESSIN 20 UNIT/ML VIAL ONE (10:37)
[2024-04-26 10:40] LABS: BASOPHILS % (AUTO) 0.7 %; HCT - HEMATOCRIT 20.8 % (42.0-52.0); LYMPHOCYTES # (AUTO) 0.3 10^3/uL (1.5-3.5); LYMPHOCYTES % (AUTO) 6.6 %; MEAN CORPUSCULAR HEMOGLOBIN 43.5 pg (27.0-31.0); MEAN CORPUSCULAR HGB CONC 33.7 g/dL (32.0-36.0); MEAN CORPUSCULAR VOLUME 129.2 fL (80.0-94.0); MEAN PLATELET VOLUME 10.8 fL (7.4-11.4); MONOCYTES # (AUTO) 0.5 10^3/uL (0.0-1.0); MONOCYTES % (AUTO) 10.9 %; NEUTROPHILS # (AUTO) 3.4 10^3/uL (1.5-6.6); NEUTROPHILS % (AUTO) 81.8 %; NUCLEATED RED BLOOD CELLS AUTO 4.9 /100WBC; PLT - PLATELET COUNT 163 10^3/uL (130-450); RED BLOOD COUNT 1.61 10^6/uL (4.70-6.10); RED CELL DISTRIBUTION WIDTH 16.1 % (12.0-15.0); WHITE BLOOD COUNT 4.1 x10^3/uL (4.8-10.8)
[2024-04-26 10:44] LABS: SLIDE REVIEW? Indicated
[2024-04-26 10:55] LABS: ALBUMIN 2.4 g/dL (3.2-5.5); ALBUMIN/GLOBULIN RATIO 1.7 (1.0-2.2); BILIRUBIN,TOTAL 0.5 mg/dL (0.2-1.0); CALCIUM 6.6 mg/dL (8.5-10.3); POTASSIUM 4.4 mmol/L (3.5-4.5); TOTAL PROTEIN 3.8 g/dL (6.4-8.9)
[2024-04-26 10:57] LABS: PLATELET ESTIMATE, MANUAL NORMAL (130-450,000) (NORMAL); PLATELET MORPHOLOGY NORMAL APPEARANCE (NORMAL); RBC MORPHOLOGY (MULTIPLE) 3+ MACROCYTOSIS (NORMAL)
[2024-04-26 11:02] LABS: ABG BASE EXCESS -5.4 mmol/L (-2.0-3.0); ABG HCO3 20.1 mmol/L (22.0-26.0); ABG OXYGEN SATURATION 89 % (94-98); ABG PCO2 39 mmHg (34-45); ABG PH 7.33 (7.35-7.45); ABG PO2 63 mmHg (80-100); ABG TCO2 21.3 MMOL/L (21.0-29.0)
[2024-04-26 11:03] LABS: ALLEN TEST POSITIVE
[2024-04-26 11:04] LABS: ABG MODE OF VENTILATION ASSIST/CONTROL; ABG RESPIRATORY RATE 20 b/min
--- NOTE | 2024-04-26 12:22 | PROVIDER PROGRESS NOTE ---
Progress Note Overnight he was febrile to 38.2. Then defervesced. We are continuing with Zosyn. His pressor requirements have not gone down. He maintained 20 to 30 cc of urine output per hour overnight. He is also having high NG output about 200 cc every 12 hours. He remains on vasopressin, phenylephrine, Levophed and dobutamine. He is also on Versed drip which was started yesterday during the day. Yesterday evening we started a fentanyl drip as he was overbreathing the vent. This morning his laboratory findings do not show great improvement. His potassium has risen to 5.0 his creatinine has risen from a baseline of 1.0-1.9. His lactic acid is 3.1 despite aggressive fluid resuscitation. His troponin is now elevated at greater than 2000. As previously stated his ejection fraction is quite low, read on the echocardiogram is 10 to 15%. This is a new finding he had a low normal ejection fraction 50 to 55% in October of this year. From a respiratory status standpoint he was down to a PEEP of 5 overnight we have increased the PEEP this morning to 8 with new development of hypoxia to the low 80s on the noninvasive measurement. After increasing the PEEP to 8 and the FiO2 to 100% the blood gas shows a pH of 7.32, pCO2 of 39.4, pO2 62.6 and a bicarb of 20 with a base excess of -5. This patient's heart is failing. I believe the etiology of his hypotension and hypoxia to be his failing heart. I have titrated the dobutamine at the bedside from 2.5 mcg to 8.5 mcg with little effect to his mean arterial pressure. Continues to correlate with the cuff and is right around 50. I had a discussion with the and made the suggestion that this patient be made DO NOT RESUSCITATE. The outcome of resuscitative efforts would not be an outcome that is desired by this patient or this family. And likely would not result in any prolongation of life. Laboratory Tests 04/26/24 04/26/24 04/26/24 04:32 05:15 10:37 WBC 4.7 L 4.1 L Hgb 7.6 L 7.0 L* Plt Count 184 163 Neutrophils # (Manual) 3.7 ABG pH 7.38 ABG pCO2 36 ABG pO2 86 ABG HCO3 20.6 L ABG Base Excess -4.1 L FiO2 100.00 Tidal Volume 450 PEEP 04/26/24 10:40 WBC Hgb Plt Count Neutrophils # (Manual) ABG pH 7.33 L ABG pCO2 39 ABG pO2 63 L ABG HCO3 20.1 L ABG Base Excess -5.4 L FiO2 100.00 Tidal Volume 450 PEEP 8 He has not been responsiveTo dobutamine escalation this morning. Pressors were maxed out and he has a mean arterial pressure in the high 40s. He shows evidence of dropping oxygen saturations as evidenced by the SpO2 but this is very difficult to read given the degree of vasoconstriction. We did alter the ventilation settings, and blood gas does show normal pCO2 and a pO2 of 62.6. I do not believe that the declining respiratory status is a function of his oxygenation or ventilation. I believe that the patient has overwhelming sepsis with acute and severe heart failure. Given the degree of medical futility, I had a discussion with Niurka, the patient's . We elected to terminally extubate and discontinue care. This patient has a degree of critical illness that is threatening one or more vital organ systems. He is experiencing life-threatening deterioration of his condition. I spent 60 minutes of critical care time with this patient today. This included coordination of care, review and ordering of lab work, adjusting medications. For most of this time I was at the bedside.
[2024-04-26 12:23] VITALS: O2SAT 95
--- NOTE | 2024-04-26 13:30 | DISCHARGE SUMMARY ---
"Discharge Summary Admit Date: 04/24/24 Discharge Date: 04/26/24 Discharging Provider: Elham Webber PA-C Primary Care Provider: Daryl Condition at Discharge: Critical Discharge Disposition: 20 NB- - DIAGNOSES Admission Diagnoses: Acute hypoxic respiratory failure Atrial fibrillation with RVR Perforated bowel Diabetes Primary myelofibrosis Hip osteoarthritis Discharge Diagnoses with Status of Each Condition: (1)Cardiac arrest Secondary to below. Time of 1227, 04/26/24 (2)Acute heart failure preoperative Echocardiogram in October 2023 done as an outpatient showed minimally reduced ejection fraction 50 to 55%. Stat echocardiogram was obtained early on postoperative day 1. Showed markedly reduced ejection fraction with biventricular dysfunction which was severe in nature. Clinically his cardiac function declined quite significantly on the morning of postoperative day 2 with increasing pressor requirements decreasing oxygenation increase in his troponin to greater than 2000 and failure of medical management. He did not show any ST elevation on his EKG. (3)Acute respiratory distress syndrome On the evening of postoperative day 0 patient had deteriorations blood gas values at the time that we increased his tidal volumes. He was oxygenating quite poorly. Ventilator settings were changed to bilevel settings with a high low of 13/8 respiratory rate was set at 20 at the time he was on 100% FiO2 using these settings allowed us to decrease his FiO2 to 70% overnight and his blood gases improved markedly. We were able to transition back to assist control by the afternoon of postop day 1. The evening of postoperative day 1 he became more uncomfortable his respiratory rate increased to 30 with overbreathing the vent. At the time he was on Versed but we did not have any opiates or propofol on board. We added a fentanyl drip and his respiratory rate came down nicely. His case was discussed with [facility], Dr. Carrie Hill on the evening of postop day 0 at the time he was too sick to transfer. We then had goals of care discussion with his Niurka. At that juncture it was decided that any interventions that would be offered at a higher level of care would be ones that would not be consistent with Bill's goals of care. (4)Acute hypoxic respiratory failure History of DVT with PE. CT angiogram is negative for any acute PE at the time of admit. There is pulmonary hypertension. There is pulmonary congestion. . At the time of admission he was without respiratory complaints although he was tachypneic and hypoxic. He was unable to take a deep breath secondary to severe abdominal pain. Prior to intubation. He had increasing acidosis. I believe this is a metabolic acidosis related to his bowel perforation, but I believe he is retaining CO2 secondary to his shallow respirations. This is a mixed respiratory and metabolic acidosis. Laboratory Tests Laboratory Tests 04/26/24 10:40 ABG pH 7.33 L ABG pCO2 39 ABG pO2 63 L ABG HCO3 20.1 L ABG Total CO2 21.3 ABG O2 Saturation 89 L ABG Base Excess -5.4 L 04/24/24 04/24/24 07:52 10:00 ABG pH 7.38 7.29 L ABG pCO2 37 45 ABG pO2 44 L 57 L ABG HCO3 21.6 L 21.6 L ABG Total CO2 23.0 23.0 ABG O2 Saturation 79 L* 86 L* ABG Oximetry Spot Check 72 94 Post intubation, and as his SIRS response was more under control, blood gases improved, but the overall clinical picture was one of decline. (5)Acute Kidney Injury Laboratory Tests 04/24/24 04/24/24 04/25/24 07:45 16:45 04:30 Creatinine 1.0 1.0 1.6 H 04/25/24 04/26/24 04/26/24 14:44 04:32 10:37 Creatinine 1.6 H 1.9 H 2.0 H Baseline Cr looks close to 1.0 in review of previous labs. Developed DAVID likely due to hypoperfusion. (6)Shock Liver Laboratory Tests 04/24/24 04/25/24 04/25/24 16:45 04:30 14:44 AST 15 226 H 259 H ALT 16 256 H 276 H 04/26/24 10:37 AST 124 H ALT 223 H Likely due to low flow state related to hypotension and acute heart failure. (7) Atrial fibrillation with rapid ventricular response Conclusion/Plan: He has a long history of atrial fibrillation. In response to his acute bowel perforation he is in rapid ventricular response. He initially responded somewhat to Cardizem without any significant hypotension. Pre op INR 2.4 Acutely reversed given need for emergent surgical intervention. Remained in a fib with RVR, although some measure of rate control was gained with use of Amiodarone, he was tachycardic for most of his admission. (8) Perforated bowel Conclusion/Plan: CT of the abdomen pelvis shows perforated viscus. There is small bowel enteritis. 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 His white blood cell count is very low related to his myelofibrosis disorder and treatment for that. His ANC is 300 at admit His hemoglobin and hematocrit do show an anemia. His platelet count is high. Patient denies any history of chronic abdominal pain. He was in his usual state of health until the morning of admission when he woke up, went to the bathroom and had severe abdominal pain. He has had intentional weight loss in preparation for hip replacement surgery. Lactic acid in the Ed was elevated, 2.6. This was after 4L cystalloid administration, therefore likely higher prior. agressive fluid resusitation, but never developed Lactic acid over 4. Laboratory Tests 04/24/24 04/24/24 04/26/24 13:45 18:15 04:32 Lactic Acid 2.6 H 2.1 3.1 H* 04/26/24 10:37 Lactic Acid 2.0 (9) Diabetes Conclusion/Plan: reviewed last outpatient note. Only on metformin prior to presentation. His last A1c was 5.7. He is not extremely hyperglycemic upon admission. He never developed hyperglycemia. (10) Primary myelofibrosis Conclusion/Plan: on Fedratinib 400mg daily, and hydrea 2000mg daily. Bone marrow transplant has been deferred. Has pancytopenia related to this. Leukopenia related to this. Discussed w oncology at on the evening of POD #0, Dr Mark Cross, who recommended holding these medications in the period of acute illness. His WBC did increase, as well as his ANC Laboratory Tests 04/24/24 04/24/24 04/25/24 07:45 16:45 04:30 WBC 1.0 L* 0.8 L* 2.9 L Neutrophils # (Manual) 0.3 L* Not Reportable 1.2 L 04/25/24 04/26/24 04/26/24 14:44 04:32 10:37 WBC 3.8 L 4.7 L 4.1 L Neutrophils # (Manual) 1.6 3.7 (6) Hip osteoarthritis Conclusion/Plan: takes prednisone 10mg every other day for this at home. Held in the setting of acute illness. However, random cortisol was low post operatively, and given state of critical illness, he was supported with hydrocortisone. - HPI History of Present Illness: 73-year-old male who was in his usual state of health until just before he presented to the emergency department this morning. 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 Also has diabetes most recent A1c was 5.7% on metformin as an outpatient. Have been planning for elective hip replacement in the near future. Has lost some weight in preparation for this. This is intentional. Additionally had medical clearance in place for elective hip replacement. Early this morning he got up to go to the bathroom and had sudden onset of abdominal pain it was severe enough that he presented directly to the emergency department. Since he has been here he has been hypoxic with sats from the 70s into the 90s. He has been tachycardic and tachypneic. He has a history of multiple myeloma and neutropenia. He had previously been seeing Dr. Pacheco here at [facility] and will be transitioning over to our new oncologist. He is anticoagulated on Coumadin for both his atrial fibrillation and his history of pulmonary embolus. He also has a history of obstructive sleep apnea and obesity. He is lost weight over the last year or so in preparation for an elective hip replacement. He walks daily with his , using a cane or trekking poles usually about a mile in an hour. He has a good support system with children in the [place] and [place] area. He lives with his Niurka, who is his surrogate decision maker. He expresses a desire for full code and full care. - CONSULTS | PROCEDURES Consultations: General Surgery, Dr Alexandra Procedures: 04/24: Exploratory laparotomy, sigmoid colectomy, end colostomy. Intraoperative findings were sigmoid perforation probably secondary to fecal impaction and perforation of a diverticulum. Chest x-ray: Cardiomegaly CT abdomen pelvis probable celiac occlusion, moderate stenosis of the SMA, possible bowel loop ischemia. Small bowel enteritis. Mild ascites. Cirrhosis. Patchy bibasilar atelectasis. Mild cardiomegaly. Pulmonary arterial hypertension. Perforated viscus. CTA of the chest negative for PE Multiple chest x-rays for lines and tubes - HOSPITAL COURSE Hospital Course: Please see above for most of the pertinent details of the case. In short, patient presented to the emergency department in a state of acute illness and deteriorated while in the emergency department. He was hypoxic and eventually required mechanical ventilation. He was also hypotensive. He was taken to the operating room for exploratory laparotomy where gross feculent peritonitis was noted. There was a 3 cm perforation in his sigmoid colon probably due to a perforated diverticulum. He had a sigmoid colon resection with Ruben procedure and was taken back to the ICU where he developed acute respiratory distress syndrome. He remained hypotensive on multiple pressors. He was treated with appropriate antibiotic therapy and stress dose steroids. On the morning of postoperative day 1 stat echocardiogram revealed severe biventricular dysfunction with a very low ejection fraction. At that point dobutamine was added. He continued to decline on multiple pressors and mechanical ventilation. Despite improvement of his blood gases, continued to need maximal respiratory support. He developed acute kidney injury and shock liver probably related to his hypotension and low flow state. Ultimately despite maximal medical support his body was unable to recover from overwhelming sepsis of abdominal origin. He was terminally extubated at the request of his and passed peacefully in a short period of time. - ALLERGIES Allergies/Adverse Reactions: Allergies Allergy/AdvReac Type Severity Reaction Status Date / Time No Known Drug Allergies Allergy Verified 04/24/24 07:41 - MEDICATIONS Home Medications: Ambulatory Orders Medication Instructions Recorded Confirmed Lisinopril [Zestril] 20 mg PO DAILY 12/14/21 04/24/24 Multivit-Min/Iron/Folic Acid/K 1 tab PO DAILY 12/14/21 03/26/24 [Multi-Day Plus Minerals Tablet] [place]-3S/Dha/Epa/Fish Oil [Fish 2 mg PO DAILY 12/14/21 03/26/24 Oil 1,200 mg Softgel] Warfarin [Coumadin] 10 mg PO UD 12/14/21 04/24/24 glucosamine HCL [Glucosamine HCl] 1 mg PO DAILY 12/14/21 03/26/24 Levothyroxine Sodium 50 mcg PO DAILY 08/17/22 04/24/24 [Levothyroxine] Rosuvastatin Calcium [Crestor] 20 mg PO DAILY 08/17/22 04/24/24 Fedratinib Dihydrochloride 400 mg PO DAILY 08/19/22 04/24/24 [Inrebic] Tramadol HCl 50 mg PO TID PRN 10/04/23 04/24/24 predniSONE [Prednisone] 10 mg PO UD 03/19/24 04/24/24 Hydroxyurea [Hydrea] 2,000 mg PO DAILY 04/24/24 04/24/24 Metformin HCl [Metformin ER 500 mg PO DAILY 04/24/24 04/24/24 Osmotic] atenoloL [Tenormin] 25 mg PO DAILY 04/24/24 04/24/24 - PHYSICAL EXAM AT DISCHARGE Physical Exam Other/Comments: Patient without heart rate, pulse or respirations. - LABS Result Diagrams: 04/26/24 10:37 04/26/24 10:37 - SEPSIS Current Stage of Sepsis: Septic shock Possible source of Sepsis: GI tract/intra-abdominal Sepsis Criteria: Recorded Temperature greater than 38.3C or Less than 36C, Recorded Heart Rate greater than 90 bpm, Respiratory: Increasing oxygen requirements, WBC count greater than 12,000 or less than 4000, MAP less than 65 mmHg, Metabolic: lactate > 2 mmol/L"
[2024-04-26 13:48] VITALS: BP 0/0
--- NOTE | 2024-04-26 17:00 | PROVIDER PROGRESS NOTE ---
Progress Note Pt seen and examined this am. Discussed w/Elham Webber, ICU staff and . Pt critically ill w/SMA stenosis, profound LV failure (EF 10%), septic shock, shock liver w/rising LFTs, respiratory failure, UT, a fib/flutter w/RVR, s/p perf'd viscus and Rosario's procedure in the setting of progressive myelofibrosis. Based on review of chart and decline in clinical picture despite maximal therapeutic efforts, it is clear the patient has a non-survivable illness. Spouse elected to transition to comfort care as his blood pressure continued to decline despite multiple pressors. See note per Elham Webber re: hospital course and subsequent .
== END 2024-04-26 12:27 | DRG 871 ==
LOC: EDUNIT# → ED 07:19 → SDS 15:10 → UNDOADMIN 17:57 → ICU 17:57
PROVIDERS: ADMIT Surgery; ATTEND Physician Assistant Medical
PROC: 0DTN0ZZ Resection of Sigmoid Colon, Open Approach (ICD-10-PCS; principal; 2024-04-24 15:30)
DX: A41.9 Sepsis, unspecified organism (principal); I46.9 Cardiac arrest, cause unspecified; R65.21 Severe sepsis with septic shock; I50.21 Acute systolic (congestive) heart failure; J96.21 Acute and chronic respiratory failure with hypoxia; K65.8 Other peritonitis; J80 Acute respiratory distress syndrome; K72.00 Acute and subacute hepatic failure without coma; D70.9 Neutropenia, unspecified; K63.1 Perforation of intestine (nontraumatic); E87.4 Mixed disorder of acid-base balance; N17.9 Acute kidney failure, unspecified; I77.4 Celiac artery compression syndrome; K55.1 Chronic vascular disorders of intestine; D47.1 Chronic myeloproliferative disease; I48.91 Unspecified atrial fibrillation; K52.89 Other specified noninfective gastroenteritis and colitis; I95.9 Hypotension, unspecified; E11.9 Type 2 diabetes mellitus without complications; M16.9 Osteoarthritis of hip, unspecified; G47.33 Obstructive sleep apnea (adult) (pediatric); I34.0 Nonrheumatic mitral (valve) insufficiency; Z66 Do not resuscitate; Z79.01 Long term (current) use of anticoagulants; Z79.52 Long term (current) use of systemic steroids; Z79.84 Long term (current) use of oral hypoglycemic drugs; Z79.890 Hormone replacement therapy; Z79.899 Other long term (current) drug therapy; Z86.711 Personal history of pulmonary embolism; Z86.718 Personal history of other venous thrombosis and embolism
CPT/HCPCS: 31500; 36415; 36556; 36600; 44143; 51702; 71045; 71275; 74177; 80048; 80053; 81003; 82330; 82533; 82607; 82746; 82803; 83036; 83605; 83690; 83735; 83880; 84100; 84484; 85025; 85379; 85610; 85730; 87040; 87150; 93005; 93307; 94002; 94003; 96361; 96365; 96375; 96376; 99291; 99292; A6250; A9270; J0131; J0282; J0330; J1170; J1250; J2372; J3010; J7040; J7168; P9047; Q9967; 81001; 87086